=== PATIENT | female | born 1945 | race Caucasian/White ===

== ENCOUNTER 2017-04-28 19:04 | Inpatient (IN) | payer MEDICARE, BC ==
[~2017-04-28] VITALS: Ht 177.8 cm; Wt 59.0 kg
[~2017-04-28 19:04] MED LIST: ASPI81TA31 PO; BLOO-360 IN; CARB200T PO; CLON0.2T PO; DOCU100C36 PO; FURO-152 PO; INSU100V10 SQ; LEVO100T PO; METF500T4 PO
[2017-04-28 20:00] LABS: BASOPHILS % (AUTO) 0.4 % (0.0-2.0); EOSINOPHILS # (AUTO) 0.2 K/uL (0.0-0.7); EOSINOPHILS % (AUTO) 1.7 % (0.0-7.0); HEMATOCRIT 40.8 % (37-47); HEMOGLOBIN 13.6 G/DL (12.0-16.0); LYMPHOCYTES # (AUTO) 0.7 K/UL (0.8-4.8); LYMPHOCYTES % (AUTO) 7.9 % (20.5-51.5); MEAN CORPUSCULAR HEMOGLOBIN 31.9 UUG (27.0-31.0); MEAN CORPUSCULAR HGB CONC 33 g/dL (32.0-37.0); MEAN CORPUSCULAR VOLUME 95.8 FL (81.0-99.0); MONOCYTES # (AUTO) 0.7 K/UL (0.1-1.30); MONOCYTES % (AUTO) 7.1 % (0.0-11.0); NEUTROPHILS # (AUTO) 7.7 K/UL (1.8-8.9); NEUTROPHILS % (AUTO) 82.9 % (38.5-71.5); PLATELET COUNT (AUTO) 234 K/UL (150-450); RED BLOOD CELL COUNT(AUTO) 4.26 MIL/UL (4.2-5.4); WHITE BLOOD COUNT (AUTO) 9.3 K/UL (4.0-11.2)
[2017-04-28 20:01] LABS: CARBON DIOXIDE 33 mmol/L (21-32); CHLORIDE 93 mmol/L (98-107); CREATININE 1.1 mg/dL (0.6-1.3); GLUCOSE 242 mg/dL (74-106); POTASSIUM 4.3 mmol/L (3.5-5.1); UREA NITROGEN, BLOOD 30 mg/dL (7-18)
--- NOTE | 2017-04-28 20:01 | NUR ---
Patient out of unit for ct scan via gurny
[2017-04-28 20:07] LABS: ALANINE AMINOTRANSFERASE 21 U/L (14-59); ALKALINE PHOSPHATASE 110 U/L (50-136); ASPARTATE AMINOTRANSFERASE 11 U/L (15-37); BILIRUBIN,DIRECT 0.1 mg/dL (0.0-0.2); BILIRUBIN,TOTAL 0.4 mg/dL (0.2-1.0); LIPASE 106 U/L (73-393); TOTAL PROTEIN, SERUM 7.3 g/dL (6.4-8.2)
--- NOTE | 2017-04-28 20:30 | NUR ---
Patient back from ct scan with no distress noted
[2017-04-28 22:13] LABS: *BILIRUBIN,URIN NEGATIVE (NEGATIVE); *BLOOD, URINE Trace-intact (NEGATIVE); *CLARITY,URINE SLIGHTLY CLOUDY (CLEAR); *COLOR,URINE LIGHT YELLOW (YELLOW); *KETONES,URINE NEGATIVE (NEGATIVE); *PROTEIN,URINE 1+ (NEGATIVE); *UROBILINOGEN,URINE 0.2 E.U./dl (NORMAL); LEUKOCYTE ESTERASE ,URINE TRACE (NEGATIVE); NITRITE, URINE POSITIVE (NEGATIVE); PH,URINE 6.5 (5.0-8.0); UGLUCOSE TRACE (NEGATIVE)
[2017-04-28 22:16] LABS: BACTERIA,URINE MANY /HPF (NONE SEEN); RBC,URINE 0-3 /HPF (0-3); SQUAMOUS EPITHELIAL CELL,UR FEW /HPF (NONE SEEN); WBC,URINE 20-50 /HPF (0-3)
[2017-04-28 22:19] LABS: *AMPHETAMINE, URINE NEGATIVE (NEGATIVE); *BARBITURATE, URINE NEGATIVE (NEGATIVE); *CANNABINOID, URINE NEGATIVE (NEGATIVE); *COCCAINE, URINE NEGATIVE (NEGATIVE); *OPIATE, URINE NEGATIVE (NEGATIVE); *PHENCYCLIDINE SCREEN,URINE NEGATIVE (NEGATIVE)
--- NOTE | 2017-04-28 23:08 | NUR ---
Called Daughter for medication list on patient but unable to get a hold of any family member for medication list. Patient does not remember what med she take at home
--- NOTE | 2017-04-28 23:20 | NUR ---
transfered to 2nd floor via amber
--- NOTE | 2017-04-28 23:26 | NUR ---
Pt arrived to unit via gurney accompanied by NAILHEAD OPERATOR. Pt is awake, alert and oriented x 2 with forgetfulness. Speech is clear with no SOB and no apparent distress noted. Admitted for dehydration/UTI. IV heplock on left wrist 20g patent and intact. Pt denies pain or discomfort at this time. Dr. Watters aware of pt admission. Safety precautions and fall preventions maintained. Will continue to monitor.
--- NOTE | 2017-04-28 23:45 | NUR ---
IV ROCEPHIN 1 GM NOT GIVEN, TOO CLOSE FROM PREVIOUS ADMINISTRATION. GIVEN AT ER.
[2017-04-28 23:58] VITALS: BP 148/79
[2017-04-29 04:00] VITALS: BP 144/74
[2017-04-29 06:36] LABS: EOSINOPHILS # (AUTO) 0.1 K/uL (0.0-0.7); HEMATOCRIT 38.5 % (37-47); HEMOGLOBIN 12.7 G/DL (12.0-16.0); LYMPHOCYTES # (AUTO) 0.9 K/UL (0.8-4.8); LYMPHOCYTES % (AUTO) 13.2 % (20.5-51.5); MEAN CORPUSCULAR HEMOGLOBIN 31.7 UUG (27.0-31.0); MEAN CORPUSCULAR HGB CONC 33 g/dL (32.0-37.0); MEAN CORPUSCULAR VOLUME 96.3 FL (81.0-99.0); MONOCYTES # (AUTO) 0.5 K/UL (0.1-1.30); NEUTROPHILS # (AUTO) 5.1 K/UL (1.8-8.9); NEUTROPHILS % (AUTO) 76.8 % (38.5-71.5); PLATELET COUNT (AUTO) 211 K/UL (150-450)
[2017-04-29 06:42] LABS: WHITE BLOOD COUNT (AUTO) 6.6 K/UL (4.0-11.2)
[2017-04-29 07:05] LABS: IRON, SERUM 24 ug/dL (50-175)
[2017-04-29 07:25] LABS: ALANINE AMINOTRANSFERASE 20 U/L (14-59); ALKALINE PHOSPHATASE 98 U/L (50-136); ASPARTATE AMINOTRANSFERASE 14 U/L (15-37); BILIRUBIN,TOTAL 0.4 mg/dL (0.2-1.0); CARBON DIOXIDE 33 mmol/L (21-32); CHLORIDE 95 mmol/L (98-107); CHOLESTEROL 169 mg/dL (<200); CREATININE 0.8 mg/dL (0.6-1.3); GLUCOSE 264 mg/dL (74-106); HDL CHOLESTEROL 78 mg/dL (40-60); MAGNESIUM 1.4 mg/dL (1.8-2.4); PHOSPHOROUS 3.5 mg/dL (2.5-4.9); TOTAL PROTEIN, SERUM 6.5 g/dL (6.4-8.2)
[2017-04-29 07:38] LABS: TRIGLYCERIDES 51 MG/DL (30-150); UREA NITROGEN, BLOOD 24 mg/dL (7-18)
--- NOTE | 2017-04-29 08:00 | NUR ---
awake, oriented x 2, states still feels weak, denies of nausea, explained plan of care- verbalized understanding, safety measures provided, call light within reach, bed alarm on
--- NOTE | 2017-04-29 11:05 | NUR ---
BS 409- gave 15 units of regular insulin sq as per sliding scale and informed Dr Watters
[2017-04-29 11:39] VITALS: BP 169/75
[2017-04-29 12:28] LABS: THYROID STIMULATING HORMONE 1.082 mIU/mL (0.358-3.740)
--- NOTE | 2017-04-29 13:40 | NUR ---
c/o low back pain- medicated with Morphine 2 mg iv as prn
[2017-04-29 16:04] VITALS: BP 124/61
--- NOTE | 2017-04-29 17:17 | NUR ---
denies of pain, needs attended, daughter called and spoke to her
--- NOTE | 2017-04-29 18:30 | NUR ---
resting in bed, no distress noted, all needs attended and met, safety and comfort measures provided, call light within reach, bed alarm on
--- NOTE | 2017-04-29 19:30 | NUR ---
RECEIVED PATIENT LAYING COMFORTABLY IN BED. HOB ELEVATED. NO ACUTE DISTRESS NOTED. NO C/O NAUSEA, VOMITING, HEADACHES. DVT PUMPS IN PLACED. PATIENT IS INCONTINENT IN BM AND URINE. A&O X'S 3. NOTED LEFT CHEST WALL PACEMAKER. SKIN INTACT. NOTED BILATERAL LEG SWELLING. SAFETY INITIATED. CALL LIGHT WITHIN REACH. WILL CONTINUE TO MONITOR.
[2017-04-29 20:00] VITALS: BP 159/73
[2017-04-30] VITALS: BP 158/77
[2017-04-30 04:43] VITALS: BP 179/85
[2017-04-30 06:10] VITALS: BP 149/79
--- NOTE | 2017-04-30 06:51 | NUR ---
PATIENT SLEPT INTERMITTENTLY T/O THE NIGHT. NO ACUTE DISTRESS NOTED. ALERT AND ORIENTED X'S 3 BUT FORGETFUL. C/O PAIN, MEDS GIVEN STATED RELIEF. TEMP UNDER CONTROL. ALL MEDS GIVEN ORDERED. DVT PUMPS IN PLACE. IV SL PATENT AND INTACT. VSS. ALL NEEDS MET. WILL CONTINUE TO MONITOR.
--- NOTE | 2017-04-30 08:00 | NUR ---
awake alert and oriented x 4- slightly forgetful, denies of pain, states feels better today, explained plan of care- verbalized understanding, call light within reach.
[2017-04-30 09:18] LABS: ALANINE AMINOTRANSFERASE 18 U/L (14-59); ALKALINE PHOSPHATASE 103 U/L (50-136); ASPARTATE AMINOTRANSFERASE 15 U/L (15-37); BILIRUBIN,TOTAL 0.3 mg/dL (0.2-1.0); CARBON DIOXIDE 29 mmol/L (21-32); CHLORIDE 93 mmol/L (98-107); CREATININE 0.8 mg/dL (0.6-1.3); MAGNESIUM 1.5 mg/dL (1.8-2.4); PHOSPHOROUS 3.1 mg/dL (2.5-4.9); POTASSIUM 4.1 mmol/L (3.5-5.1); TOTAL PROTEIN, SERUM 6.7 g/dL (6.4-8.2); UREA NITROGEN, BLOOD 17 mg/dL (7-18)
[2017-04-30 09:24] LABS: BASOPHILS % (AUTO) 0.4 % (0.0-2.0); EOSINOPHILS # (AUTO) 0.1 K/uL (0.0-0.7); EOSINOPHILS % (AUTO) 2.6 % (0.0-7.0); HEMATOCRIT 38.2 % (37-47); HEMOGLOBIN 12.7 G/DL (12.0-16.0); LYMPHOCYTES # (AUTO) 0.5 K/UL (0.8-4.8); LYMPHOCYTES % (AUTO) 10.7 % (20.5-51.5); MEAN CORPUSCULAR HEMOGLOBIN 31.6 UUG (27.0-31.0); MEAN CORPUSCULAR HGB CONC 33 g/dL (32.0-37.0); MEAN CORPUSCULAR VOLUME 95.1 FL (81.0-99.0); MONOCYTES # (AUTO) 0.4 K/UL (0.1-1.30); MONOCYTES % (AUTO) 8.2 % (0.0-11.0); NEUTROPHILS # (AUTO) 3.7 K/UL (1.8-8.9); NEUTROPHILS % (AUTO) 78.1 % (38.5-71.5); PLATELET COUNT (AUTO) 201 K/UL (150-450); RED BLOOD CELL COUNT(AUTO) 4.02 MIL/UL (4.2-5.4); WHITE BLOOD COUNT (AUTO) 4.7 K/UL (4.0-11.2)
[2017-04-30 09:28] LABS: GLUCOSE 389 mg/dL (74-106)
[2017-04-30 11:23] VITALS: BP 154/83
--- NOTE | 2017-04-30 13:30 | NUR ---
ambulated with PT in the hallway- tolerated well
--- NOTE | 2017-04-30 15:00 | NUR ---
sister here visiting, pt pulled out a tape on her left hand and obtained a skin tear- cleansed with ns and applied hydrogel and covered with dsg
[2017-04-30 15:43] VITALS: BP 116/66
--- NOTE | 2017-04-30 17:53 | NUR ---
resting in bed, denies of pain, no distress noted, all needs attended and met, call light within reach
--- NOTE | 2017-04-30 19:30 | NUR ---
RECEIVED PATIENT LAYING COMFORTABLY IN BED. NO ACUTE DISTRESS NOTED. A&OX4 BUT FORGETFUL. DVT PUMPS IN PLACE. NOTED SKIN SCAB ON THE RIGHT WRIST D/T BAND AID. PHOTO TAKEN. IV ON THE RIGHT FA PATENT AND INTACT. VSS. SAFETY INITIATED. CALL LIGHT WITHIN REACH. WILL CONTINUE TO MONITOR.
[2017-04-30 20:36] VITALS: BP 135/69
[2017-05-01 05:16] VITALS: BP 154/68
[2017-05-01] MEDS ORDERED: ARIP15TA3 PO (05:32)
--- NOTE | 2017-05-01 06:00 | NUR ---
Patient raised concern for symptoms of depression with no suicidal ideation. She reports taking home medication, Abilify qHS unknown dose. Medication added to Med Recon. Will endorse to day shift nurse. Patient states primary pharmacy is [facility] in [place].
--- NOTE | 2017-05-01 06:19 | NUR ---
Patient resting in bed. No distress noted overnight. Complained of migraine pain this AM, PRN medications administered as ordered. Afebrile. Hemodynamically stable Room air with SpO2 and RR WNL. No bowel movement this shift, still pending STOOL OB. Right hand dressing intact. SCD pumps in place. Call light within reach. Needs attended to.
[2017-05-01 06:53] LABS: ALANINE AMINOTRANSFERASE 16 U/L (14-59); ALKALINE PHOSPHATASE 97 U/L (50-136); ASPARTATE AMINOTRANSFERASE 17 U/L (15-37); BILIRUBIN,TOTAL 0.3 mg/dL (0.2-1.0); CARBON DIOXIDE 33 mmol/L (21-32); CHLORIDE 96 mmol/L (98-107); CREATININE 0.8 mg/dL (0.6-1.3); GLUCOSE 264 mg/dL (74-106); MAGNESIUM 1.4 mg/dL (1.8-2.4); PHOSPHOROUS 3.8 mg/dL (2.5-4.9); TOTAL PROTEIN, SERUM 6.5 g/dL (6.4-8.2); UREA NITROGEN, BLOOD 18 mg/dL (7-18)
[2017-05-01 06:58] LABS: BASOPHILS % (AUTO) 0.2 % (0.0-2.0); EOSINOPHILS # (AUTO) 0.2 K/uL (0.0-0.7); EOSINOPHILS % (AUTO) 3.9 % (0.0-7.0); HEMATOCRIT 40.4 % (37-47); HEMOGLOBIN 13.6 G/DL (12.0-16.0); LYMPHOCYTES # (AUTO) 0.7 K/UL (0.8-4.8); LYMPHOCYTES % (AUTO) 13.6 % (20.5-51.5); MEAN CORPUSCULAR HEMOGLOBIN 32.1 UUG (27.0-31.0); MEAN CORPUSCULAR HGB CONC 34 g/dL (32.0-37.0); MEAN CORPUSCULAR VOLUME 95.6 FL (81.0-99.0); MONOCYTES # (AUTO) 0.5 K/UL (0.1-1.30); MONOCYTES % (AUTO) 10.6 % (0.0-11.0); NEUTROPHILS # (AUTO) 3.7 K/UL (1.8-8.9); NEUTROPHILS % (AUTO) 71.7 % (38.5-71.5); PLATELET COUNT (AUTO) 199 K/UL (150-450); RED BLOOD CELL COUNT(AUTO) 4.23 MIL/UL (4.2-5.4); WHITE BLOOD COUNT (AUTO) 5.1 K/UL (4.0-11.2)
--- NOTE | 2017-05-01 10:26 | NUR ---
pt took meds as prescribed. pt given insulin per coverage with blood sugar of 281. pt ate breakfast. no signs of aspiration . pt alert and oriented x4 iv line intact and patent. no new injuries noted compared to previous shift. no signs of acute distress noted. vitas stable. will continue to monitor.
[2017-05-01 11:27] VITALS: BP 153/74
--- NOTE | 2017-05-01 14:09 | NUR ---
pt complained of pain. pt given norco for back pain. will reassess. Physical therapist also stated that pt refused therapy. will continue to monitor.
[2017-05-01 15:08] VITALS: BP 152/70
--- NOTE | 2017-05-01 18:35 | NUR ---
pt been stable throughout the day. pt given meds as prescribed. pt requested for pain med and given norco for complaints of back pain and headache. pt iv site continued to be intact. pt ate meals and given insulin per sliding scale. pt continues to have non productive cough but pt has lasix. occult blood order still in process. pt had no bm. pt states that she had bm yesterday. will endorse to cnc machinist 2nd shift nurse.
--- NOTE | 2017-05-01 19:00 | NUR ---
RECEIVED PATIENT IN ALERT, ORIENTED, NO SOB NO CHEST PAIN NOTED, COMPLAIN OF MILD HEADACHE WILL MEDICATED FOR PAIN, KEPT CLEAN DRY AND COMFORTABLE, CALL LIGHT WITHIN REACH.
[2017-05-01 20:00] VITALS: BP 137/72
[2017-05-02 04:00] VITALS: BP 133/76
[2017-05-02 07:03] LABS: CARBON DIOXIDE 31 mmol/L (21-32); CHLORIDE 94 mmol/L (98-107); CREATININE 0.9 mg/dL (0.6-1.3); GLUCOSE 270 mg/dL (74-106); MAGNESIUM 1.8 mg/dL (1.8-2.4); PHOSPHOROUS 4.4 mg/dL (2.5-4.9); POTASSIUM 4.7 mmol/L (3.5-5.1); UREA NITROGEN, BLOOD 30 mg/dL (7-18)
[2017-05-02 07:08] LABS: BASOPHILS % (AUTO) 0.3 % (0.0-2.0); EOSINOPHILS # (AUTO) 0.2 K/uL (0.0-0.7); EOSINOPHILS % (AUTO) 4.7 % (0.0-7.0); HEMATOCRIT 37.2 % (37-47); HEMOGLOBIN 12.4 G/DL (12.0-16.0); LYMPHOCYTES # (AUTO) 0.8 K/UL (0.8-4.8); LYMPHOCYTES % (AUTO) 14.8 % (20.5-51.5); MEAN CORPUSCULAR HGB CONC 34 g/dL (32.0-37.0); MEAN CORPUSCULAR VOLUME 95.5 FL (81.0-99.0); MONOCYTES # (AUTO) 0.6 K/UL (0.1-1.30); MONOCYTES % (AUTO) 11.3 % (0.0-11.0); NEUTROPHILS # (AUTO) 3.5 K/UL (1.8-8.9); NEUTROPHILS % (AUTO) 68.9 % (38.5-71.5); PLATELET COUNT (AUTO) 200 K/UL (150-450); RED BLOOD CELL COUNT(AUTO) 3.89 MIL/UL (4.2-5.4); WHITE BLOOD COUNT (AUTO) 5.1 K/UL (4.0-11.2)
--- NOTE | 2017-05-02 07:20 | NUR ---
PATIENT RECEIVED IN ROOM ALERT AWAKE IN NO ACUTE DISTRESS. RESPIRATIONS EVEN AND UNLABORED. FALL PRECAUTIONS IN PLACE.
[2017-05-02 11:41] VITALS: BP 110/77
[2017-05-02] MEDS ORDERED: SULF1TAB3 PO (15:31)
[2017-05-02] MEDS ORDERED: INSU100V28 SQ ×2 (15:31)
[2017-05-02] MEDS ORDERED: MULT1TAB73 PO (15:31)
[2017-05-02] MEDS ORDERED: Blood Sugar Diagnostic VI (15:31)
[2017-05-02] MEDS ORDERED: INSU100V10 SQ (15:31)
[2017-05-02] MEDS ORDERED: HYDR-3326 PO (15:31)
[2017-05-02] MEDS ORDERED: DEXT50DI8 IV (15:31)
[2017-05-02] MEDS ORDERED: ZOLP5TAB8 PO (15:31)
[2017-05-02 15:48] VITALS: BP 152/71
--- NOTE | 2017-05-02 17:23 | NUR ---
PATIENT'S BS 63. HAVING DINNER AT THIS TIME. NO S/S OF DISTRESS OBSERVED.
--- NOTE | 2017-05-02 18:21 | NUR ---
DISCHARGING PATIENT TO [facility] IN A STABLE CONDITION. SBAR REPORT GIVEN TO GARDENIA BLACKMON. DISCHARGE INSTRUCTIONS PROVIDED. LIST OF BELONGINGS SINGED AND ALL WAS TAKEN. PATIENT AWAITING ON AMBULANCE FOR UX DESIGN MANAGER. PATIENT STATED HAD BM 04/30/17. ABD SOFT AND NOT DISTENDED. GARDENIA RN NOTIFIED. AWAITING ON AMBULANCE FOR UX DESIGN MANAGER.
--- NOTE | 2017-05-02 18:50 | NUR ---
AMBULANCE HERE TO EDUCATION RESEARCH ANALYST PATIENT.
--- NOTE | 2017-05-02 19:20 | NUR ---
PATIENT LEFT WITH AMBULANCE STAFF.
== END 2017-05-02 19:20 | DRG 871 ==
LOC: ER 19:06 → MED 22:54
PROVIDERS: ADMIT Internal Medicine; ATTEND Internal Medicine
DX: A41.9 Sepsis, unspecified organism (principal); G93.41 Metabolic encephalopathy; D68.59 Other primary thrombophilia; E22.2 Syndrome of inappropriate secretion of antidiuretic hormone; I11.0 Hypertensive heart disease with heart failure; E11.65 Type 2 diabetes mellitus with hyperglycemia; F03.90 Unspecified dementia, unspecified severity, without behavioral disturbance, psychotic disturbance, mood disturbance, and anxiety; I50.32 Chronic diastolic (congestive) heart failure; E83.42 Hypomagnesemia; N39.0 Urinary tract infection, site not specified; F31.30 Bipolar disorder, current episode depressed, mild or moderate severity, unspecified; R65.20 Severe sepsis without septic shock; E86.0 Dehydration; B96.1 Klebsiella pneumoniae [K. pneumoniae] as the cause of diseases classified elsewhere; T42.1X5A Adverse effect of iminostilbenes, initial encounter; Y92.009 Unspecified place in unspecified non-institutional (private) residence as the place of occurrence of the external cause; N32.81 Overactive bladder; R32 Unspecified urinary incontinence; E03.9 Hypothyroidism, unspecified; Z91.81 History of falling; K43.9 Ventral hernia without obstruction or gangrene; I67.2 Cerebral atherosclerosis; Z79.84 Long term (current) use of oral hypoglycemic drugs; Z16.11 Resistance to penicillins; Z79.4 Long term (current) use of insulin; Z95.0 Presence of cardiac pacemaker; Z87.891 Personal history of nicotine dependence; Z98.84 Bariatric surgery status
CPT/HCPCS: 36415; 70030-TC; 70450; 71010; 80307; 82306; 83550; 83690; 83735; 84100; 84443; 85025; 85730; 87077; 87086; 93005; 97116; 97530; A4663; J0696; J1815; J2270; J2405; J2916; J3475; J3490; J7030; J7040; J7050; J7060

== ENCOUNTER 2017-05-11 16:25 | Emergency (ER) | payer MEDICARE, BC ==
[~2017-05-11] VITALS: Ht 167.6 cm; Wt 74.8 kg
[~2017-05-11 16:25] MED LIST changes: +ARIP15TA3 PO; -BLOO-360 IN; +Blood Sugar Diagnostic VI; +DEXT50DI8 IV; +HYDR-3326 PO; +INSU100V28 SQ; +MULT1TAB73 PO; +SULF1TAB3 PO; +ZOLP5TAB8 PO
--- NOTE | 2017-05-11 17:49 | NUR ---
Patient discharged to home in stable conditon. Written and verbal after care instructions given. Patient verbalizes understanding of instructions.PT SAYS FEELS BETTER, PT ACCOMPANIED BY SO. PT CALLING FOR TAXI
[2017-05-11 17:50] VITALS: BP 159/99
== END 2017-05-11 17:51 | disposition home or self-care (01) ==
LOC: ER 16:37
DX: G43.909 Migraine, unspecified, not intractable, without status migrainosus (principal); F17.200 Nicotine dependence, unspecified, uncomplicated; E11.9 Type 2 diabetes mellitus without complications; M19.90 Unspecified osteoarthritis, unspecified site; I10 Essential (primary) hypertension; Z79.4 Long term (current) use of insulin; Z79.82 Long term (current) use of aspirin
CPT/HCPCS: 96374; 99284; A4663; J0780

== ENCOUNTER 2017-07-26 04:07 | Inpatient (IN) | payer MEDICARE, BC ==
[~2017-07-26] VITALS: Ht 167.6 cm; Wt 74.8 kg
[2017-07-26] MEDS ORDERED: IV NORMAL SALINE 500 ML IV ONE (04:17)
--- NOTE | 2017-07-26 04:21 | NUR ---
Patient BIB [facility] for c/o weakness and patient is "shaky." Patient observed in obvious distress, SVT on the monitor, skin pale and cool, A/O x2 c/o "jaw pain." EKG immediately performed and IV line started. To room 4B, ERMD at bedside.
[2017-07-26] MEDS ORDERED: IV NORMAL SALINE 1000 ML BAG IV ONE (04:30)
[2017-07-26] MEDS ORDERED: ONDANSETRON 4 MG/2 ML VIAL IV ONE (04:30)
[2017-07-26] MEDS ORDERED: ASPIRIN 81 MG TAB.CHEW PO ONE (04:30)
[2017-07-26] MEDS ORDERED: ADENOSINE 6 MG/2 ML SYR IV ONE ×2 (04:30→04:47)
--- NOTE | 2017-07-26 04:33 | NUR ---
ERMD at bedside, patient converted with medication but immediately resumed SVT, additional orders received.
--- NOTE | 2017-07-26 04:35 | NUR ---
PT'S DAUGHTER CALLED TO INQUIRE ABOUT HER.EXPLAINED TO DAUGHTER THAT PT JUST GOT HERE AND WE HAVE NO RESULTS YET.DAUGHTER TOLD ME THAT BECAUSE HER BP WAS RUNNING LOW,SHE WITHHELD LOPRESSOR AND CARDIZEM
[2017-07-26 04:37] LABS: BASOPHILS % (AUTO) 0.4 % (0.0-2.0); EOSINOPHILS # (AUTO) 0.2 K/uL (0.0-0.7); HEMOGLOBIN 15.3 g/dL (10.9-14.3); LYMPHOCYTES # (AUTO) 1.5 K/uL (20.0-40.0); MEAN CORPUSCULAR HEMOGLOBIN 32.3 uug (24.7-32.8); MEAN CORPUSCULAR HGB CONC 34 g/dL (32.3-35.6); MEAN CORPUSCULAR VOLUME 95.1 fL (75.5-95.3); MONOCYTES # (AUTO) 0.4 K/uL (2.0-10.0); MONOCYTES % (AUTO) 4.1 % (0.0-11.0); NEUTROPHILS # (AUTO) 7.8 K/uL (1.8-8.9); NEUTROPHILS % (AUTO) 78.5 % (38.5-71.5); PLATELET COUNT (AUTO) 207 K/uL (179-408); RED BLOOD CELL COUNT(AUTO) 4.73 MIL/uL (3.63-4.92); WHITE BLOOD COUNT (AUTO) 9.9 K/uL (3.8-11.8)
[2017-07-26] MEDS ORDERED: VERAPAMIL 5 MG/2 ML VIAL IV ONE ×3 (04:45→04:54)
--- NOTE | 2017-07-26 04:45 | NUR ---
Patient converted with medication to SR. ERMD notified.
[2017-07-26] MEDS ORDERED: ASPIRIN 81 MG TAB.CHEW ONE (04:47)
[2017-07-26] MEDS ORDERED: ONDANSETRON 4 MG/2 ML VIAL ONE (04:47)
[2017-07-26 04:48] LABS: CARBON DIOXIDE 28 mmol/L (21-32); CHLORIDE 97 mmol/L (98-107); POTASSIUM 4.6 mmol/L (3.5-5.1); UREA NITROGEN, BLOOD 24 mg/dL (7-18)
--- NOTE | 2017-07-26 04:53 | NUR ---
Patient's HR converted to a bigeminal rythm, ERMD notified.
[2017-07-26 04:56] LABS: GLUCOSE 424 mg/dL (74-106)
[2017-07-26 05:00] LABS: ALANINE AMINOTRANSFERASE 179 U/L (14-59); ALKALINE PHOSPHATASE 238 U/L (50-136); ASPARTATE AMINOTRANSFERASE 231 U/L (15-37); BILIRUBIN,DIRECT 0.3 mg/dL (0.0-0.2); BILIRUBIN,TOTAL 0.5 mg/dL (0.2-1.0); TOTAL PROTEIN, SERUM 6.9 g/dL (6.4-8.2)
[2017-07-26] MEDS ORDERED: INSULIN REGULAR, HUMAN 1,000 UNITS/10 ML VIAL IV ONE (05:00)
[2017-07-26] MEDS ORDERED: INSULIN REGULAR, HUMAN 300 UNIT/3 ML VIAL ONE (05:18)
[2017-07-26] MEDS ORDERED: INSULIN REGULAR, HUMAN 300 UNITS/3 ML VIAL SQ PRN (05:45)
[2017-07-26] MEDS ORDERED: DEXTROSE 50% 50 ML DISP.SYRIN IV PRN ×2 (05:45→12:45)
[2017-07-26] MEDS ORDERED: ACETAMINOPHEN 325 MG TABLET PO PRN (05:45)
--- NOTE | 2017-07-26 06:15 | NUR ---
Pt. admitted to TELE, under care of Dr. Watters Belongs List completed
[2017-07-26 06:45] VITALS: BP 131/74
[2017-07-26] MEDS ORDERED: METO50TA3 PO (06:56)
[2017-07-26] MEDS ORDERED: TRAZ-147 PO (06:56)
[2017-07-26] MEDS ORDERED: DILT120C2 PO (06:56)
[2017-07-26] MEDS ORDERED: BENZ2TAB7 PO (06:56)
[2017-07-26] MEDS ORDERED: INSU100V10 SQ (06:56)
[2017-07-26] MEDS ORDERED: DONE5TAB7 PO (06:56)
[2017-07-26] MEDS ORDERED: ENAL20TA70 PO (06:56)
[2017-07-26] MEDS ORDERED: CARI350T PO (06:56)
--- NOTE | 2017-07-26 07:00 | NUR ---
PT IS LAYING IN BED COMFORTABLY. NO S/S OF RESPIRATORY DISTRESS NOTED. PT IS ON 2 L NC. REMOVED NC PT IS STILL 100% O2 SAT. PT IS ON RA. NO PAIN NOTED. IV INTACT/PATENT. PT IS PACING ON MONITOR. ALL SAFETY NEEDS ARE MET. PT IS LUPE AND COOPERATIVE/ AXO X 3. PT REFUSES SCD'S AND NICOTINE PATCH OF NOW.
[2017-07-26] MEDS: BLOOD SUGAR DIAGNOSTIC 1 EACH STRIP VI SCH ×4 (07:46→20:24)
[2017-07-26] MEDS: PANTOPRAZOLE SODIUM 40 MG TABLET.DR PO SCH (08:10)
[2017-07-26] MEDS: INSULIN REGULAR, HUMAN 300 UNIT/3 ML VIAL SQ PRN ×4 (08:19→20:32)
[2017-07-26] MEDS ORDERED: ASPIRIN EC 325 MG TABLET.DR PO SCH (09:00)
[2017-07-26] MEDS ORDERED: METOPROLOL TARTRATE 50 MG TABLET PO SCH (09:00)
[2017-07-26] MEDS ORDERED: FUROSEMIDE 20 MG/2 ML VIAL IV SCH (09:00)
[2017-07-26] MEDS ORDERED: METOPROLOL TARTRATE 25 MG TABLET PO SCH (09:00)
[2017-07-26 11:30] VITALS: BP 150/84
--- NOTE | 2017-07-26 11:54 | NUR ---
The patient ate breakfast. US Abdomen will be done on 07/27/2017 program or project administrator. Charged nurse Ailyn noted.
[2017-07-26 13:29] LABS: CARBON DIOXIDE 28 mmol/L (21-32); CHLORIDE 98 mmol/L (98-107); CREATININE 0.8 mg/dL (0.6-1.3); GLUCOSE 276 mg/dL (74-106); POTASSIUM 4.3 mmol/L (3.5-5.1); UREA NITROGEN, BLOOD 22 mg/dL (7-18)
[2017-07-26 13:34] LABS: ALANINE AMINOTRANSFERASE 138 U/L (14-59); ALKALINE PHOSPHATASE 168 U/L (50-136); ASPARTATE AMINOTRANSFERASE 125 U/L (15-37); BILIRUBIN,TOTAL 0.3 mg/dL (0.2-1.0); MAGNESIUM 1.6 mg/dL (1.8-2.4); TOTAL PROTEIN, SERUM 6.1 g/dL (6.4-8.2)
[2017-07-26] MEDS: CLONIDINE HCL 0.2 MG TABLET PO SCH ×2 (13:50→22:00)
[2017-07-26] MEDS: CARISOPRODOL 350 MG TABLET PO SCH ×2 (13:50→16:15)
[2017-07-26 15:45] VITALS: BP 145/70
[2017-07-26] MEDS: DOCUSATE SODIUM 100 MG CAPSULE PO SCH (16:15)
[2017-07-26] MEDS: CARBAMAZEPINE 200 MG TABLET PO SCH (16:15)
[2017-07-26] MEDS ORDERED: IV NS 1000 ML 1,000 ML IV PRN (16:30)
[2017-07-26] MEDS ORDERED: FUROSEMIDE 20 MG/2 ML VIAL IV ONE (17:15)
[2017-07-26 19:00] VITALS: BP 131/83
--- NOTE | 2017-07-26 19:30 | NUR ---
PT IS LAYING IN BED COMFORTABLY. NO S/S OF RESPIRATORY DISTRESS NOTED. PT IS ON RA. PT IS ON RA. NO PAIN NOTED. IV INTACT/PATENT. PT IS PACING ON MONITOR. ALL SAFETY NEEDS ARE MET. PT IS LUPE AND COOPERATIVE/ AXO X 3. PT REFUSES SCD'S AND NICOTINE PATCH OF NOW.
[2017-07-26 20:37] VITALS: BP 131/83
[2017-07-26] MEDS ORDERED: DOCUSATE SODIUM 100 MG CAPSULE PO SCH (21:00)
[2017-07-26] MEDS: TRAZODONE 100 MG TABLET PO SCH (21:08)
[2017-07-26] MEDS: METOPROLOL TARTRATE 50 MG TABLET PO SCH (21:09)
[2017-07-26] MEDS: DONEPEZIL 5 MG TABLET PO SCH (21:09)
[2017-07-26] MEDS: INSULIN DETEMIR 300 UNIT/3 ML CARTRIDGE SQ SCH (21:12)
[2017-07-27] VITALS: BP 116/77
[2017-07-27] MEDS: BLOOD SUGAR DIAGNOSTIC 1 EACH STRIP VI SCH ×7 (00:41→20:34)
[2017-07-27 04:00] VITALS: BP 160/76
[2017-07-27] MEDS: CLONIDINE HCL 0.2 MG TABLET PO SCH ×2 (06:00→09:39)
[2017-07-27] MEDS: PANTOPRAZOLE SODIUM 40 MG TABLET.DR PO SCH ×2 (06:04→11:17)
--- NOTE | 2017-07-27 06:06 | NUR ---
pt npo for CT angio this am, AM meds held for now, will cont to monitor BS AND SBP closely
[2017-07-27] MEDS: LEVOTHYROXINE SODIUM 75 MCG TABLET PO SCH ×2 (06:37→11:17)
[2017-07-27 07:02] LABS: ALANINE AMINOTRANSFERASE 118 U/L (14-59); ALKALINE PHOSPHATASE 172 U/L (50-136); ASPARTATE AMINOTRANSFERASE 78 U/L (15-37); BILIRUBIN,TOTAL 0.3 mg/dL (0.2-1.0); CARBON DIOXIDE 26 mmol/L (21-32); CHLORIDE 100 mmol/L (98-107); CHOLESTEROL 192 mg/dL (<200); CREATININE 0.7 mg/dL (0.6-1.3); GLUCOSE 123 mg/dL (74-106); HDL CHOLESTEROL 96 mg/dL (40-60); MAGNESIUM 1.6 mg/dL (1.8-2.4); PHOSPHOROUS 4.3 mg/dL (2.5-4.9); POTASSIUM 3.7 mmol/L (3.5-5.1); TOTAL PROTEIN, SERUM 6.8 g/dL (6.4-8.2); TRIGLYCERIDES 66 MG/DL (30-150); UREA NITROGEN, BLOOD 20 mg/dL (7-18)
[2017-07-27 07:06] LABS: THYROID STIMULATING HORMONE 2.111 mIU/mL (0.358-3.740)
--- NOTE | 2017-07-27 08:00 | NUR ---
awake alert and oriented, denies of pain, kept NPO for US abdomen and CTA, explained plan of care- verbalized understanding, safety measures maintained, call light within reach, bed alarm on
--- NOTE | 2017-07-27 08:30 | NUR ---
US abdomen done at bedside.
[2017-07-27] MEDS ORDERED: LEVOTHYROXINE SODIUM 100 MCG TABLET PO SCH (09:00)
[2017-07-27 09:31] LABS: BASOPHILS % (AUTO) 0.5 % (0.0-2.0); EOSINOPHILS # (AUTO) 0.2 K/uL (0.0-0.7); EOSINOPHILS % (AUTO) 3.2 % (0.0-7.0); HEMOGLOBIN 13.9 g/dL (10.9-14.3); LYMPHOCYTES # (AUTO) 0.9 K/uL (20.0-40.0); LYMPHOCYTES % (AUTO) 14.2 % (20.5-51.5); MEAN CORPUSCULAR HEMOGLOBIN 32.4 uug (24.7-32.8); MEAN CORPUSCULAR HGB CONC 35 g/dL (32.3-35.6); MEAN CORPUSCULAR VOLUME 93.7 fL (75.5-95.3); MONOCYTES # (AUTO) 0.4 K/uL (2.0-10.0); MONOCYTES % (AUTO) 6.5 % (0.0-11.0); NEUTROPHILS # (AUTO) 4.8 K/uL (1.8-8.9); NEUTROPHILS % (AUTO) 75.6 % (38.5-71.5); PLATELET COUNT (AUTO) 193 K/uL (179-408); WHITE BLOOD COUNT (AUTO) 6.4 K/uL (3.8-11.8)
[2017-07-27 09:33] LABS: HEMATOCRIT 40.3 % (31.2-41.9)
[2017-07-27] MEDS: hydrALAZINE HCL 25 MG TABLET PO PRN (09:39)
--- NOTE | 2017-07-27 09:39 | NUR ---
BP 170/88 Catapres 0.2 mg po which want given at 0600 and Hydralazine 25mg po as prn for BP >160 was given with little sip of H20
[2017-07-27] MEDS ORDERED: IV NORMAL SALINE 250 ML IV ONE (09:47)
[2017-07-27] MEDS ORDERED: IOHEXOL 350 100 ML INFUS..BTL ONE (09:47)
[2017-07-27] MEDS ORDERED: HEPARIN SODIUM,PORCINE/PF 100 UNIT/ML, 5ML SYR ONE (09:47)
--- NOTE | 2017-07-27 10:00 | NUR ---
To xray dept for CTA
--- NOTE | 2017-07-27 11:00 | NUR ---
back in the room, am meds given
[2017-07-27] MEDS: ASPIRIN 81 MG TAB.CHEW PO SCH (11:06)
[2017-07-27] MEDS: FUROSEMIDE 20 MG TABLET PO SCH (11:07)
[2017-07-27] MEDS: DOCUSATE SODIUM 100 MG CAPSULE PO SCH ×2 (11:07→17:03)
[2017-07-27] MEDS: DILTIAZEM HCL CD 120 MG CAP.SR.24H PO SCH (11:07)
[2017-07-27] MEDS: METOPROLOL TARTRATE 50 MG TABLET PO SCH ×2 (11:08→21:00)
[2017-07-27] MEDS: CARISOPRODOL 350 MG TABLET PO SCH ×3 (11:08→17:03)
[2017-07-27] MEDS: CARBAMAZEPINE 200 MG TABLET PO SCH ×2 (11:08→17:03)
[2017-07-27] MEDS: MAGNESIUM SULFATE/D5W 100 ML IV SCH ×2 (11:12→12:20)
[2017-07-27 11:25] VITALS: BP 143/70
[2017-07-27] MEDS ORDERED: DEXTROSE 50% 50 ML DISP.SYRIN IV PRN (11:45)
[2017-07-27] MEDS: INSULIN REGULAR, HUMAN 300 UNIT/3 ML VIAL SQ PRN ×2 (11:50→17:00)
[2017-07-27] MEDS: HYDROCODONE/APAP 5-325MG TABLET PO PRN (12:39)
--- NOTE | 2017-07-27 12:41 | NUR ---
1300 soma not given since it was administered at 1108 after test done
[2017-07-27] MEDS ORDERED: CLONIDINE HCL 0.2 MG TABLET PO SCH (14:00)
[2017-07-27 15:18] VITALS: BP 120/81
[2017-07-27] MEDS: CLONIDINE HCL 0.1 MG TABLET PO SCH ×2 (15:34→22:07)
--- NOTE | 2017-07-27 18:25 | NUR ---
no distress noted, all needs attended and met, kept clean and dry at all times, safety measures maintained, call light within reach, bed alarm on.
[2017-07-27 19:00] VITALS: BP 136/89
--- NOTE | 2017-07-27 20:00 | NUR ---
RECEIVED PATIENT ASLEEP IN BED. EASILY AROUSABLE. A/O X2 BUT FORGETFUL AT TIMES. DENIES ANY PAIN OR DISCOMFORT. VSS. H/L INTACT AND PATENT. BED ALARM ON. CALL LIGHT IN REACH. ALL NEEDS ATTENDED. WILL CONTINUE TO MONITOR.
[2017-07-27] MEDS: INSULIN DETEMIR 300 UNIT/3 ML CARTRIDGE SQ SCH (20:55)
[2017-07-27] MEDS: INSULIN REGULAR, HUMAN 300 UNITS/3 ML VIAL SQ PRN (20:56)
[2017-07-27] MEDS: DONEPEZIL 5 MG TABLET PO SCH (20:59)
[2017-07-27] MEDS: TRAZODONE 100 MG TABLET PO SCH (20:59)
[2017-07-28 04:00] VITALS: BP 125/80
--- NOTE | 2017-07-28 05:01 | NUR ---
PATIENT ASLEEP IN BED. SLEPT WELL THROUGHOUT THE NIGHT. VSS. BED ALARM ON. CALL LIGHT IN REACH. ALL NEEDS ATTENDED. WILL CONTINUE TO MONITOR.
[2017-07-28] MEDS: CLONIDINE HCL 0.1 MG TABLET PO SCH ×3 (05:37→22:33)
[2017-07-28] MEDS: HYDROCODONE/APAP 5-325MG TABLET PO PRN ×2 (05:45→19:56)
--- NOTE | 2017-07-28 05:45 | NUR ---
PATIENT AWAKE IN BED. C/O HEADACHE. OFFERED TYLENOL BUT PATIENT REFUSED STATING THAT DOESN'T WORK FOR HER. PATIENT GIVEN NORCO 1 TAB PO PRN FOR FREITAS. VSS. WILL CONTINUE TO MONITOR AND ASSESS.
[2017-07-28] MEDS: LEVOTHYROXINE SODIUM 75 MCG TABLET PO SCH (06:06)
[2017-07-28] MEDS: PANTOPRAZOLE SODIUM 40 MG TABLET.DR PO SCH (06:06)
[2017-07-28] MEDS: BLOOD SUGAR DIAGNOSTIC 1 EACH STRIP VI SCH ×5 (06:29→20:51)
--- NOTE | 2017-07-28 06:30 | NUR ---
PATIENTS BLOOD SUGAR 67. A/O X4. PATIENT GIVEN ORANGE JUICE, WILL RECHECK IN 15-20 MIN. CALL LIGHT IN REACH. ALL NEEDS ATTENDED.
[2017-07-28 08:33] LABS: CARBON DIOXIDE 30 mmol/L (21-32); CHLORIDE 100 mmol/L (98-107); CREATININE 0.7 mg/dL (0.6-1.3); GLUCOSE 98 mg/dL (74-106); MAGNESIUM 1.8 mg/dL (1.8-2.4); POTASSIUM 4.1 mmol/L (3.5-5.1); UREA NITROGEN, BLOOD 21 mg/dL (7-18)
[2017-07-28] MEDS: DOCUSATE SODIUM 100 MG CAPSULE PO SCH ×2 (08:43→16:37)
[2017-07-28] MEDS: DILTIAZEM HCL CD 120 MG CAP.SR.24H PO SCH (08:46)
[2017-07-28] MEDS: CARBAMAZEPINE 200 MG TABLET PO SCH ×2 (08:46→16:37)
[2017-07-28] MEDS: FUROSEMIDE 20 MG TABLET PO SCH (08:46)
[2017-07-28] MEDS: CARISOPRODOL 350 MG TABLET PO SCH ×3 (08:46→16:37)
[2017-07-28] MEDS: METOPROLOL TARTRATE 50 MG TABLET PO SCH ×2 (08:47→20:47)
[2017-07-28] MEDS: ASPIRIN 81 MG TAB.CHEW PO SCH (08:47)
[2017-07-28 10:02] LABS: BASOPHILS % (AUTO) 0.6 % (0.0-2.0); EOSINOPHILS # (AUTO) 0.2 K/uL (0.0-0.7); EOSINOPHILS % (AUTO) 3.7 % (0.0-7.0); HEMATOCRIT 41.3 % (31.2-41.9); HEMOGLOBIN 14.2 g/dL (10.9-14.3); LYMPHOCYTES # (AUTO) 0.8 K/uL (20.0-40.0); LYMPHOCYTES % (AUTO) 13.7 % (20.5-51.5); MEAN CORPUSCULAR HEMOGLOBIN 32.3 uug (24.7-32.8); MEAN CORPUSCULAR HGB CONC 34 g/dL (32.3-35.6); MEAN CORPUSCULAR VOLUME 94.2 fL (75.5-95.3); MONOCYTES # (AUTO) 0.4 K/uL (2.0-10.0); MONOCYTES % (AUTO) 7.5 % (0.0-11.0); NEUTROPHILS # (AUTO) 4.4 K/uL (1.8-8.9); NEUTROPHILS % (AUTO) 74.5 % (38.5-71.5); PLATELET COUNT (AUTO) 196 K/uL (179-408); RED BLOOD CELL COUNT(AUTO) 4.39 MIL/uL (3.63-4.92)
[2017-07-28 11:40] VITALS: BP 131/86
[2017-07-28] MEDS: INSULIN REGULAR, HUMAN 300 UNIT/3 ML VIAL SQ PRN ×2 (11:51→16:36)
[2017-07-28] MEDS: hydrALAZINE HCL 25 MG TABLET PO PRN (12:59)
--- NOTE | 2017-07-28 14:42 | NUR ---
SEEN BY DR STEEL SEE NOTES
[2017-07-28 15:31] VITALS: BP 149/87
--- NOTE | 2017-07-28 20:00 | NUR ---
RECEIVED PATIENT AWAKE IN BED. A/O X3. FORGETFUL AT TIMES. PATIENT C/O HEADACHE 03/27. ASKING FOR PAIN MEDICATION. PATIENT GIVEN NORCO 1 TAB PO PRN FOR PAIN. VSS. H/L INTACT AND PATENT. CALL LIGHT IN REACH. BED ALARM ON. ALL NEEDS ATTENDED.
[2017-07-28 20:06] VITALS: BP 147/81
[2017-07-28] MEDS: TRAZODONE 100 MG TABLET PO SCH (20:46)
[2017-07-28] MEDS: DONEPEZIL 5 MG TABLET PO SCH (20:46)
[2017-07-28] MEDS: INSULIN DETEMIR 300 UNIT/3 ML CARTRIDGE SQ SCH (20:52)
[2017-07-28] MEDS: INSULIN REGULAR, HUMAN 300 UNITS/3 ML VIAL SQ PRN (20:53)
[2017-07-29] MEDS: HYDROCODONE/APAP 5-325MG TABLET PO PRN (04:20)
--- NOTE | 2017-07-29 04:20 | NUR ---
PATIENT AWAKE AND C/O OF HEADACHE. PATIENT GIVEN NORCO 1 TAB PO PRN FOR HEADACHE. WILL CONTINUE TO MONITOR.
[2017-07-29 04:45] VITALS: BP_SYST 122; BP_SYST 132; BP_DIAS 84
[2017-07-29] MEDS: LEVOTHYROXINE SODIUM 75 MCG TABLET PO SCH (06:05)
[2017-07-29] MEDS: PANTOPRAZOLE SODIUM 40 MG TABLET.DR PO SCH (06:05)
[2017-07-29] MEDS: CLONIDINE HCL 0.1 MG TABLET PO SCH (06:06)
[2017-07-29] MEDS: BLOOD SUGAR DIAGNOSTIC 1 EACH STRIP VI SCH ×2 (06:35→11:46)
--- NOTE | 2017-07-29 08:00 | NUR ---
awake alert and oriented x3, no signs of pain or distress, more awake and cooperative.
[2017-07-29] MEDS: ASPIRIN 81 MG TAB.CHEW PO SCH (08:37)
[2017-07-29] MEDS: CARISOPRODOL 350 MG TABLET PO SCH ×2 (08:39→14:05)
[2017-07-29] MEDS: DILTIAZEM HCL CD 120 MG CAP.SR.24H PO SCH (08:39)
[2017-07-29] MEDS: METOPROLOL TARTRATE 50 MG TABLET PO SCH (08:39)
[2017-07-29] MEDS: DOCUSATE SODIUM 100 MG CAPSULE PO SCH (08:39)
[2017-07-29] MEDS: FUROSEMIDE 20 MG TABLET PO SCH (08:40)
[2017-07-29] MEDS: CARBAMAZEPINE 200 MG TABLET PO SCH (08:44)
[2017-07-29 11:43] VITALS: BP 131/75
[2017-07-29] MEDS: INSULIN REGULAR, HUMAN 300 UNIT/3 ML VIAL SQ PRN (11:49)
--- NOTE | 2017-07-29 12:00 | NUR ---
SEEN MOISES SHAVER WITH DC ORDER, DAUGHTER NOTIFIED
--- NOTE | 2017-07-29 14:45 | NUR ---
discharge home stable via cab per daughters request
== END 2017-07-29 14:55 | disposition home or self-care (01) | DRG 280 ==
LOC: ER 04:10 → TELE 04:45 → MED 07-27 05:20
PROVIDERS: ADMIT Internal Medicine; ATTEND Internal Medicine
DX: I47.1 Supraventricular tachycardia (principal); I21.A1 Myocardial infarction type 2; I50.33 Acute on chronic diastolic (congestive) heart failure; E11.65 Type 2 diabetes mellitus with hyperglycemia; I48.91 Unspecified atrial fibrillation; E44.1 Mild protein-calorie malnutrition; E87.1 Hypo-osmolality and hyponatremia; G25.0 Essential tremor; I11.0 Hypertensive heart disease with heart failure; E03.9 Hypothyroidism, unspecified; E78.5 Hyperlipidemia, unspecified; F03.90 Unspecified dementia, unspecified severity, without behavioral disturbance, psychotic disturbance, mood disturbance, and anxiety; F17.210 Nicotine dependence, cigarettes, uncomplicated; F31.9 Bipolar disorder, unspecified; K21.9 Gastro-esophageal reflux disease without esophagitis; Z98.84 Bariatric surgery status; R74.0 Nonspecific elevation of levels of transaminase and lactic acid dehydrogenase [LDH]; Z95.0 Presence of cardiac pacemaker; Z68.26 Body mass index [BMI] 26.0-26.9, adult; I44.0 Atrioventricular block, first degree; Z79.84 Long term (current) use of oral hypoglycemic drugs
CPT/HCPCS: 36415; 70030-TC; 71010; 71275; 76705; 83735; 84100; 84443; 85025; 85730; 93005; 93307; A4663; J0153; J1642; J1815; J1940; J2405; J3475; J3490; J7030; J7050; Q9967

== ENCOUNTER 2017-08-17 22:54 | Emergency (ER) | payer MEDICARE, BC ==
[~2017-08-17] VITALS: Ht 167.6 cm; Wt 74.8 kg
[~2017-08-17 22:54] MED LIST changes: -ARIP15TA3 PO; -Blood Sugar Diagnostic VI; +CARI350T PO; -DEXT50DI8 IV; +DILT-32 PO; +DONE5TAB7 PO; +ENAL20TA70 PO; -HYDR-3326 PO; +METO50TA16 PO; -SULF1TAB3 PO; +TRAZ-147 PO; -ZOLP5TAB8 PO
[2017-08-18 00:23] LABS: BASOPHILS % (AUTO) 0.3 % (0.0-2.0); CARBON DIOXIDE 27 mmol/L (21-32); CHLORIDE 98 mmol/L (98-107); CREATININE 0.9 mg/dL (0.6-1.3); EOSINOPHILS # (AUTO) 0.2 K/uL (0.0-0.7); EOSINOPHILS % (AUTO) 2.9 % (0.0-7.0); GLUCOSE 287 mg/dL (74-106); HEMATOCRIT 35.3 % (31.2-41.9); HEMOGLOBIN 11.9 g/dL (10.9-14.3); LYMPHOCYTES # (AUTO) 0.7 K/uL (20.0-40.0); MEAN CORPUSCULAR HEMOGLOBIN 32.1 uug (24.7-32.8); MEAN CORPUSCULAR HGB CONC 34 g/dL (32.3-35.6); MEAN CORPUSCULAR VOLUME 94.8 fL (75.5-95.3); MONOCYTES # (AUTO) 0.5 K/uL (2.0-10.0); MONOCYTES % (AUTO) 7.2 % (0.0-11.0); NEUTROPHILS # (AUTO) 5.3 K/uL (1.8-8.9); NEUTROPHILS % (AUTO) 78.6 % (38.5-71.5); PLATELET COUNT (AUTO) 166 K/uL (179-408); POTASSIUM 4.5 mmol/L (3.5-5.1); RED BLOOD CELL COUNT(AUTO) 3.72 MIL/uL (3.63-4.92); UREA NITROGEN, BLOOD 18 mg/dL (7-18); WHITE BLOOD COUNT (AUTO) 6.8 K/uL (3.8-11.8)
--- NOTE | 2017-08-18 00:46 | NUR ---
Patient's daughter, Lauren Gaffney, contacted regarding patient's discharge.
--- NOTE | 2017-08-18 01:30 | NUR ---
PATIENT'S DAUGHTER(KAMLESH HORTON) SET UP UBER TO TAKE PATIENT BACK HOME WHERE SHE WILL BE WAITING FOR PATIENT ARRIVAL
--- NOTE | 2017-08-18 01:43 | NUR ---
PATIENT D/C'ED HOME VIA UBER. PATIENT UNDERSTOOD ACI. DAUGTER AWARE OF ACI AND UNDERSTTOD INSTRUCTION. PATIENT LEFT ER WITH NO DISTRESS NOTED
[2017-08-18 01:45] VITALS: BP 148/90
[2017-08-18] MEDS ORDERED: INSU100V10 SQ (14:26)
== END 2017-08-18 01:46 | disposition home or self-care (01) ==
LOC: ER 22:59
DX: S13.4XXA Sprain of ligaments of cervical spine, initial encounter (principal); I10 Essential (primary) hypertension; E11.9 Type 2 diabetes mellitus without complications; M19.90 Unspecified osteoarthritis, unspecified site; Z79.4 Long term (current) use of insulin; Z79.82 Long term (current) use of aspirin; Z95.0 Presence of cardiac pacemaker; Z98.84 Bariatric surgery status; F17.200 Nicotine dependence, unspecified, uncomplicated; W18.30XA Fall on same level, unspecified, initial encounter; Y93.89 Activity, other specified; Y92.012 Bathroom of single-family (private) house as the place of occurrence of the external cause; Y99.8 Other external cause status
CPT/HCPCS: 36415; 70450; 72125; 85025; 85730; 93005; A4663

== ENCOUNTER 2017-08-18 12:11 | Inpatient (IN) | payer MEDICARE, BC, MEDICAID ==
[~2017-08-18] VITALS: Ht 167.6 cm; Wt 77.1 kg
[2017-08-18] MEDS ORDERED: IV NORMAL SALINE 500 ML BAG IV ONE (13:15)
[2017-08-18 13:29] LABS: BASOPHILS % (AUTO) 0.2 % (0.0-2.0); EOSINOPHILS # (AUTO) 0.1 K/uL (0.0-0.7); EOSINOPHILS % (AUTO) 2.3 % (0.0-7.0); HEMATOCRIT 36.8 % (31.2-41.9); HEMOGLOBIN 12.5 g/dL (10.9-14.3); LYMPHOCYTES # (AUTO) 0.6 K/uL (20.0-40.0); LYMPHOCYTES % (AUTO) 10.7 % (20.5-51.5); MEAN CORPUSCULAR HEMOGLOBIN 32.1 uug (24.7-32.8); MEAN CORPUSCULAR HGB CONC 34 g/dL (32.3-35.6); MEAN CORPUSCULAR VOLUME 94.9 fL (75.5-95.3); MONOCYTES # (AUTO) 0.5 K/uL (2.0-10.0); MONOCYTES % (AUTO) 8.4 % (0.0-11.0); NEUTROPHILS # (AUTO) 4.7 K/uL (1.8-8.9); NEUTROPHILS % (AUTO) 78.4 % (38.5-71.5); PLATELET COUNT (AUTO) 172 K/uL (179-408); RED BLOOD CELL COUNT(AUTO) 3.88 MIL/uL (3.63-4.92); WHITE BLOOD COUNT (AUTO) 6.1 K/uL (3.8-11.8)
[2017-08-18 13:43] LABS: CARBON DIOXIDE 29 mmol/L (21-32); CHLORIDE 95 mmol/L (98-107); CREATININE 0.7 mg/dL (0.6-1.3); GLUCOSE 221 mg/dL (74-106); POTASSIUM 4.2 mmol/L (3.5-5.1); UREA NITROGEN, BLOOD 15 mg/dL (7-18)
[2017-08-18 13:56] LABS: THYROID STIMULATING HORMONE 1.351 mIU/mL (0.358-3.740)
[2017-08-18 13:57] LABS: ALANINE AMINOTRANSFERASE 46 U/L (14-59); ALKALINE PHOSPHATASE 118 U/L (50-136); ASPARTATE AMINOTRANSFERASE 28 U/L (15-37); BILIRUBIN,DIRECT 0.1 mg/dL (0.0-0.2); BILIRUBIN,TOTAL 0.4 mg/dL (0.2-1.0); TOTAL PROTEIN, SERUM 6.3 g/dL (6.4-8.2)
[2017-08-18 14:18] LABS: ETHANOL < 3 MG/DL (0-0)
[2017-08-18] MEDS ORDERED: INSU100V10 SQ (14:26)
[2017-08-18 15:59] LABS: *BILIRUBIN,URIN NEGATIVE (NEGATIVE); *BLOOD, URINE Trace-intact (NEGATIVE); *CLARITY,URINE CLOUDY (CLEAR); *COLOR,URINE YELLOW (YELLOW); *KETONES,URINE NEGATIVE (NEGATIVE); *PROTEIN,URINE NEGATIVE (NEGATIVE); *UROBILINOGEN,URINE 0.2 E.U./dl (NORMAL); LEUKOCYTE ESTERASE ,URINE TRACE (NEGATIVE); NITRITE, URINE NEGATIVE (NEGATIVE)
[2017-08-18 16:06] LABS: UGLUCOSE 2+ (NEGATIVE)
[2017-08-18 16:11] LABS: BACTERIA,URINE MANY /HPF (NONE SEEN); RBC,URINE 0-3 /HPF (0-3); SQUAMOUS EPITHELIAL CELL,UR FEW /HPF (NONE SEEN)
[2017-08-18 16:48] LABS: *AMPHETAMINE, URINE NEGATIVE (NEGATIVE); *BARBITURATE, URINE NEGATIVE (NEGATIVE); *CANNABINOID, URINE NEGATIVE (NEGATIVE); *COCCAINE, URINE NEGATIVE (NEGATIVE); *OPIATE, URINE NEGATIVE (NEGATIVE); *PHENCYCLIDINE SCREEN,URINE NEGATIVE (NEGATIVE)
--- NOTE | 2017-08-18 17:30 | NUR ---
PT GETTING RESTLESS. COMFORT MEASURE PROVIDED. WILL WATCH THE PT.
--- NOTE | 2017-08-18 17:34 | NUR ---
PT ADMITTED TO TELE. TRANSFER TO FLOOR PENDING ON BED AVAILABILITY. NSG MILLER HEAD WET PROCESS AWARE.
--- NOTE | 2017-08-18 17:48 | NUR ---
HOSPITAL DINNER TRAY PROVIDED.
[2017-08-18] MEDS ORDERED: LORAZEPAM 2 MG/1 ML VIAL IV ONE (18:15)
[2017-08-18] MEDS ORDERED: LORAZEPAM 2 MG/1 ML VIAL ONE (18:24)
--- NOTE | 2017-08-18 18:36 | NUR ---
PT RESTING, NO SIGN OF DISTRESS.
--- NOTE | 2017-08-18 19:45 | NUR ---
PATIENT IN ROOM LAYING DOWN IN A/OX2. NO DISTRESS NOTED.
[2017-08-18] MEDS ORDERED: METOPROLOL TARTRATE 50 MG TABLET PO SCH (22:15)
[2017-08-18] MEDS ORDERED: INSULIN REGULAR, HUMAN 300 UNIT/3 ML VIAL SQ PRN (22:15)
[2017-08-18] MEDS ORDERED: ONDANSETRON 4 MG/2 ML VIAL IV PRN (22:30)
[2017-08-18] MEDS ORDERED: ACETAMINOPHEN 325 MG TABLET PO PRN (22:30)
[2017-08-18] MEDS ORDERED: LORAZEPAM 2 MG/1 ML VIAL IV PRN (22:30)
[2017-08-18] MEDS: CLONIDINE HCL 0.2 MG TABLET PO SCH (23:24)
[2017-08-19] MEDS: MORPHINE SULFATE 2 MG/1 ML DISP.SYRIN IV PRN (01:38)
--- NOTE | 2017-08-19 01:40 | NUR ---
PATIENT C/O FREITAS 01/25 REQUESTING TO HAVE IV PAIN MEDS. CALLED ILANA GARCIA NP MIXING PAN TENDER FOR EPPIC PANEL. RECIEVED ORDERS FOR PAIN AND CARRRIED OUT
[2017-08-19] MEDS ORDERED: MORPHINE SULFATE 4 MG/1 ML DISP.SYRIN ONE (01:53)
[2017-08-19] MEDS ORDERED: ONDANSETRON 4 MG/2 ML VIAL ONE (01:56)
[2017-08-19] MEDS: CLONIDINE HCL 0.2 MG TABLET PO SCH ×3 (02:07→23:22)
[2017-08-19] MEDS ORDERED: CLONIDINE HCL 0.2 MG TABLET ONE (02:22)
--- NOTE | 2017-08-19 02:30 | NUR ---
PATIENT SLEEPING WITH NO DISTRESS NOTED
[2017-08-19] MEDS: PANTOPRAZOLE SODIUM 40 MG TABLET.DR PO SCH (06:07)
[2017-08-19 06:17] LABS: BASOPHILS % (AUTO) 0.4 % (0.0-2.0); EOSINOPHILS # (AUTO) 0.1 K/uL (0.0-0.7); EOSINOPHILS % (AUTO) 1.6 % (0.0-7.0); HEMATOCRIT 39.6 % (31.2-41.9); HEMOGLOBIN 13.6 g/dL (10.9-14.3); LYMPHOCYTES # (AUTO) 0.8 K/uL (20.0-40.0); LYMPHOCYTES % (AUTO) 11.8 % (20.5-51.5); MEAN CORPUSCULAR HEMOGLOBIN 32.6 uug (24.7-32.8); MEAN CORPUSCULAR HGB CONC 34 g/dL (32.3-35.6); MEAN CORPUSCULAR VOLUME 94.9 fL (75.5-95.3); MONOCYTES # (AUTO) 0.6 K/uL (2.0-10.0); MONOCYTES % (AUTO) 9.3 % (0.0-11.0); NEUTROPHILS # (AUTO) 5.4 K/uL (1.8-8.9); NEUTROPHILS % (AUTO) 76.9 % (38.5-71.5); PLATELET COUNT (AUTO) 185 K/uL (179-408); RED BLOOD CELL COUNT(AUTO) 4.18 MIL/uL (3.63-4.92)
[2017-08-19] MEDS ORDERED: PANTOPRAZOLE SODIUM 40 MG TABLET.DR PO ONE (06:23)
[2017-08-19 06:36] LABS: ALANINE AMINOTRANSFERASE 53 U/L (14-59); ALKALINE PHOSPHATASE 129 U/L (50-136); ASPARTATE AMINOTRANSFERASE 30 U/L (15-37); BILIRUBIN,TOTAL 0.7 mg/dL (0.2-1.0); CARBON DIOXIDE 28 mmol/L (21-32); CHLORIDE 100 mmol/L (98-107); CREATININE 0.6 mg/dL (0.6-1.3); GLUCOSE 154 mg/dL (74-106); MAGNESIUM 1.5 mg/dL (1.8-2.4); PHOSPHOROUS 3.8 mg/dL (2.5-4.9); POTASSIUM 3.8 mmol/L (3.5-5.1); TOTAL PROTEIN, SERUM 6.8 g/dL (6.4-8.2); UREA NITROGEN, BLOOD 9 mg/dL (7-18)
[2017-08-19] MEDS ORDERED: LEVOTHYROXINE SODIUM 75 MCG TABLET ONE (06:37)
[2017-08-19] MEDS: CEFTRIAXONE 1 G in IV DEXTROSE 5% 50 ML IV SCH (08:23)
[2017-08-19] MEDS ORDERED: CEFTRIAXONE 1 G VIAL ONE (08:27)
[2017-08-19] MEDS: FUROSEMIDE 20 MG TABLET PO SCH (08:53)
[2017-08-19] MEDS: CARISOPRODOL 350 MG TABLET PO SCH ×3 (08:54→17:06)
[2017-08-19] MEDS: ASPIRIN 81 MG TAB.CHEW PO SCH (08:55)
[2017-08-19] MEDS: CARBAMAZEPINE 200 MG TABLET PO SCH ×2 (08:56→17:06)
[2017-08-19] MEDS ORDERED: ASPIRIN 81 MG TAB.CHEW ONE (08:58)
[2017-08-19] MEDS ORDERED: CARBAMAZEPINE 200 MG TABLET ONE (08:59)
[2017-08-19] MEDS ORDERED: CARISOPRODOL 350 MG TABLET ONE (09:00)
[2017-08-19] MEDS ORDERED: LEVOTHYROXINE SODIUM 100 MCG TABLET PO SCH (09:00)
[2017-08-19] MEDS: DILTIAZEM HCL CD 120 MG CAP.SR.24H PO SCH (09:01)
[2017-08-19] MEDS ORDERED: DILTIAZEM HCL CD 120 MG CAP.SR.24H PO ONE (09:02)
[2017-08-19] MEDS ORDERED: FUROSEMIDE 20 MG TABLET ONE (09:02)
[2017-08-19] MEDS ORDERED: ENALAPRIL 10 MG TABLET ONE (09:03)
[2017-08-19] MEDS: ENALAPRIL 10 MG TABLET PO SCH ×2 (09:03→21:46)
[2017-08-19] MEDS ORDERED: METOPROLOL TARTRATE 50 MG TABLET ONE (09:04)
[2017-08-19] MEDS: METOPROLOL TARTRATE 50 MG TABLET PO SCH ×2 (09:09→21:45)
[2017-08-19] MEDS ORDERED: MAGNESIUM SULFATE/D5W 200 ML ONE (09:10)
[2017-08-19] MEDS: MAGNESIUM SULFATE/D5W 100 ML IV SCH ×2 (09:15→09:22)
[2017-08-19] MEDS: DOCUSATE SODIUM 100 MG CAPSULE PO SCH (09:20)
--- NOTE | 2017-08-19 09:26 | NUR ---
pt tolerated breakfast. medicated as per md lebron. repositioned for confort.
[2017-08-19] MEDS ORDERED: DOCUSATE SODIUM 100 MG CAPSULE PO ONE (09:36)
--- NOTE | 2017-08-19 11:08 | NUR ---
PT HERE, BUT PT STILL DEELING WEAK ANF IN ST AT 110/M
[2017-08-19] MEDS: MULTIVITAMINS,THERAPEUTIC TABLET PO SCH (11:10)
[2017-08-19] MEDS: INSULIN DETEMIR 300 UNIT/3 ML CARTRIDGE SQ SCH (11:28)
[2017-08-19] MEDS ORDERED: DEXTROSE 50% 50 ML DISP.SYRIN IV PRN (13:00)
[2017-08-19] MEDS ORDERED: INSULIN REGULAR, HUMAN 300 UNITS/3 ML VIAL SQ PRN (13:00)
--- NOTE | 2017-08-19 13:54 | NUR ---
REPORT GIVEN TO NEYMAR KELLY. PT RESTING COMFORTABLY - DIAPER CHANGE DONE. TRANSFERRED TO TELEMETRY IN STABLE CONDITION.
[2017-08-19 14:00] VITALS: BP 154/102
--- NOTE | 2017-08-19 14:00 | NUR ---
Received from ER per brianne, this 72 yo female with the diagnosis of Altered Mental Status. Transferred to bed comfortably. Routine admission care rendered. Placed on tele, SR ST. Awake, alert, oriented x 2, forgetful, able to verbalized needs appropriately, calm and cooperative with care. Saline lock LFA. Prasanth Goss RELAY ADJUSTER with admission orders
[2017-08-19 15:29] VITALS: BP 158/104
[2017-08-19] MEDS: BLOOD SUGAR DIAGNOSTIC 1 EACH STRIP VI SCH ×2 (17:57→21:58)
[2017-08-19] MEDS: INSULIN REGULAR, HUMAN 300 UNIT/3 ML VIAL SQ PRN (17:59)
--- NOTE | 2017-08-19 18:00 | NUR ---
With fair appetite. Incontinence care done repositioned comfortably.
[2017-08-19 19:30] VITALS: BP 141/95
--- NOTE | 2017-08-19 19:30 | NUR ---
PT ASLEEP IN BED. PT IV INTACT.BLOOD PRESSURE 141/95. NO SIGNS/SYMPTOMS OF PAIN. CALL LIGHT WITHIN REACH. BED ALARM ON. SAFETY AND COMFORT PROVIDED.
[2017-08-19] MEDS ORDERED: DONEPEZIL 5 MG TABLET PO SCH (21:00)
[2017-08-19] MEDS ORDERED: TRAZODONE 100 MG TABLET PO SCH (21:00)
[2017-08-20] VITALS: BP 121/86
[2017-08-20 04:00] VITALS: BP 145/96
[2017-08-20] MEDS ORDERED: MORPHINE SULFATE 4 MG/1 ML DISP.SYRIN ONE (05:40)
--- NOTE | 2017-08-20 05:45 | NUR ---
PT AWAKE AND ASK FOR PAIN MEDICATION BECAUSE OF BACK PAIN. MEDICATION GIVEN TO EASE THE PAIN. BP IS 141/95. CALL LIGHT WITHIN REACH. SAFETY PROVIDED.
[2017-08-20] MEDS: MORPHINE SULFATE 2 MG/1 ML DISP.SYRIN IV PRN (05:48)
[2017-08-20] MEDS: CLONIDINE HCL 0.2 MG TABLET PO SCH ×2 (05:49→13:00)
[2017-08-20] MEDS: PANTOPRAZOLE SODIUM 40 MG TABLET.DR PO SCH (06:00)
[2017-08-20] MEDS: BLOOD SUGAR DIAGNOSTIC 1 EACH STRIP VI SCH ×3 (06:32→16:42)
[2017-08-20] MEDS ORDERED: LEVOTHYROXINE SODIUM 75 MCG TABLET PO SCH (07:00)
--- NOTE | 2017-08-20 07:30 | NUR ---
RECEIVED ASLEEP WITH EYES CLOSED OPENS EYES WHEN NAME IS CALLED SEEMS COMFORTABLE AT THIS TIMEREMAIN ON IV ANTIBIOTICS ORDERED WITH NO ADVERSE OR ALLERGIC REACTIONS AT THIS TIME WILL CONTINUE TO OBSERVE
[2017-08-20] MEDS: INSULIN REGULAR, HUMAN 300 UNIT/3 ML VIAL SQ PRN ×2 (07:49→11:32)
[2017-08-20] MEDS: FUROSEMIDE 20 MG TABLET PO SCH (08:41)
[2017-08-20] MEDS: DOCUSATE SODIUM 100 MG CAPSULE PO SCH (08:41)
[2017-08-20] MEDS: MULTIVITAMINS,THERAPEUTIC TABLET PO SCH (08:41)
[2017-08-20] MEDS: CEFTRIAXONE 1 G in IV DEXTROSE 5% 50 ML IV SCH (08:41)
[2017-08-20] MEDS: CARISOPRODOL 350 MG TABLET PO SCH ×3 (08:41→16:47)
[2017-08-20] MEDS: ASPIRIN 81 MG TAB.CHEW PO SCH (08:41)
[2017-08-20] MEDS: CARBAMAZEPINE 200 MG TABLET PO SCH ×2 (08:42→16:47)
[2017-08-20] MEDS: METOPROLOL TARTRATE 50 MG TABLET PO SCH (08:49)
[2017-08-20] MEDS: ENALAPRIL 10 MG TABLET PO SCH (08:49)
[2017-08-20] MEDS: DILTIAZEM HCL CD 120 MG CAP.SR.24H PO SCH (09:28)
[2017-08-20] MEDS: INSULIN DETEMIR 300 UNIT/3 ML CARTRIDGE SQ SCH (10:01)
[2017-08-20 11:19] VITALS: BP 141/99
[2017-08-20] MEDS ORDERED: MORPHINE SULFATE 4 MG/1 ML DISP.SYRIN IV PRN (12:45)
--- NOTE | 2017-08-20 13:15 | NUR ---
PATIENT SEEN AND EXAMINED BY DR MENENDEZ WITH ORDER TO DISCONTINUE TELEMETRY AND NOTED.
--- NOTE | 2017-08-20 15:00 | NUR ---
NOTED ORDER TO DISCHARGE PATIENT HOME TODAY AND COLOR ARTIST SPOKE WITH PATIENT AND THE DAUGHTER AND THEY ARE MAKING ARRANGEMENTS FOR HER RIDE.
[2017-08-20 15:23] VITALS: BP 108/68
--- NOTE | 2017-08-20 16:47 | NUR ---
BLOOD SUGAR IS 63 PATIENT IS ALERT AND ORIENTED STATED THAT SHE IS OKAY DRANK 120 ML OF ORANGE JUICE DISCHARGE PLANNING STATED WANTS SOME PAIN MEDICATIONS BEFORE DISCHARGE DR FRED GRANT NOTIFIED STATED WILL ARRANGE FOR DISCHARGE PAIN MEDICATIONS.
--- NOTE | 2017-08-20 17:30 | NUR ---
PATIENT ATE 100 % OF HER DINNER IN [facility] [employer] WITH NO S/S OF HYPO/HYPERGLYCEMIC REACTIONS AT THIS TIME.DISCHARGE INSTRUCTIONS AND PRESCRIPTIONS GIVEN TO PATIENT AND SHE SIGNED AND EXPRESSED UNDERSTANDING.
--- NOTE | 2017-08-20 18:00 | NUR ---
PATIENT ESCORTED BY W/CHAIR TO THE LOBBY PER THE PATIENTS DAUGHTER SHE ARRANGED FOR THE TAXI TO PICK HER UP.
--- NOTE | 2017-08-20 18:25 | NUR ---
PATIENT PICKED UP BY [facility]ORDAN WITH ALL HER PERSONAL BELONGINGS AND IN SATISFACTORY CONDITION AT THIS TIME.
== END 2017-08-20 18:20 | disposition home or self-care (01) | DRG 689 ==
LOC: ER 12:11 → OBSER 22:15 → TELE 08-19 14:15 → MED 08-20 14:11
PROVIDERS: ADMIT Internal Medicine; ATTEND Internal Medicine
DX: N39.0 Urinary tract infection, site not specified (principal); G93.40 Encephalopathy, unspecified; E44.0 Moderate protein-calorie malnutrition; D68.59 Other primary thrombophilia; E22.2 Syndrome of inappropriate secretion of antidiuretic hormone; D69.6 Thrombocytopenia, unspecified; E11.65 Type 2 diabetes mellitus with hyperglycemia; I50.32 Chronic diastolic (congestive) heart failure; Z98.84 Bariatric surgery status; E83.42 Hypomagnesemia; I49.5 Sick sinus syndrome; Z95.0 Presence of cardiac pacemaker; Z79.4 Long term (current) use of insulin; Z87.891 Personal history of nicotine dependence; Z91.81 History of falling; K43.9 Ventral hernia without obstruction or gangrene; E78.5 Hyperlipidemia, unspecified; I25.2 Old myocardial infarction; G25.0 Essential tremor; B96.89 Other specified bacterial agents as the cause of diseases classified elsewhere; Z68.27 Body mass index [BMI] 27.0-27.9, adult; E03.9 Hypothyroidism, unspecified; F03.90 Unspecified dementia, unspecified severity, without behavioral disturbance, psychotic disturbance, mood disturbance, and anxiety; M48.061 Spinal stenosis, lumbar region without neurogenic claudication; M85.80 Other specified disorders of bone density and structure, unspecified site; R32 Unspecified urinary incontinence; M25.78 Osteophyte, vertebrae; Z79.899 Other long term (current) drug therapy; Z79.82 Long term (current) use of aspirin; Z90.49 Acquired absence of other specified parts of digestive tract; F31.9 Bipolar disorder, unspecified; I11.0 Hypertensive heart disease with heart failure; I25.10 Atherosclerotic heart disease of native coronary artery without angina pectoris; F09 Unspecified mental disorder due to known physiological condition
CPT/HCPCS: 36415; 70030-TC; 70450; 71045; 72131; 80307; 83605; 83735; 84100; 84443; 85018; 85025; 85730; 87040; 87077; 87086; 93005; A4663; C1758; G0378; G0480; J0696; J1815; J2060; J2270; J2405; J3475; J3490; J7030; J7050; J7060

== ENCOUNTER 2017-09-08 19:09 | Inpatient (IN) | payer MEDICARE, BC, MEDICAID ==
[~2017-09-08] VITALS: Ht 167.6 cm; Wt 71.2 kg
[~2017-09-08 19:09] MED LIST changes: -CARI350T PO
[2017-09-08 20:44] LABS: BASOPHILS % (AUTO) 0.7 % (0.0-2.0); EOSINOPHILS # (AUTO) 0.2 K/uL (0.0-0.7); EOSINOPHILS % (AUTO) 4.2 % (0.0-7.0); HEMATOCRIT 42.1 % (31.2-41.9); HEMOGLOBIN 14.3 g/dL (10.9-14.3); LYMPHOCYTES # (AUTO) 0.7 K/uL (20.0-40.0); LYMPHOCYTES % (AUTO) 13.8 % (20.5-51.5); MEAN CORPUSCULAR HEMOGLOBIN 32.4 uug (24.7-32.8); MEAN CORPUSCULAR HGB CONC 34 g/dL (32.3-35.6); MEAN CORPUSCULAR VOLUME 95.6 fL (75.5-95.3); MONOCYTES # (AUTO) 0.4 K/uL (2.0-10.0); MONOCYTES % (AUTO) 6.9 % (0.0-11.0); NEUTROPHILS # (AUTO) 3.9 K/uL (1.8-8.9); NEUTROPHILS % (AUTO) 74.4 % (38.5-71.5); PLATELET COUNT (AUTO) 222 K/uL (179-408); WHITE BLOOD COUNT (AUTO) 5.2 K/uL (3.8-11.8)
[2017-09-08 20:50] LABS: CARBON DIOXIDE 29 mmol/L (21-32); CHLORIDE 94 mmol/L (98-107); CREATININE 0.9 mg/dL (0.6-1.3); POTASSIUM 4.9 mmol/L (3.5-5.1); UREA NITROGEN, BLOOD 20 mg/dL (7-18)
[2017-09-08 20:58] LABS: GLUCOSE 613 mg/dL (74-106)
[2017-09-08 21:00] LABS: ALANINE AMINOTRANSFERASE 52 U/L (14-59); ALKALINE PHOSPHATASE 166 U/L (50-136); ASPARTATE AMINOTRANSFERASE 24 U/L (15-37); BILIRUBIN,DIRECT 0.2 mg/dL (0.0-0.2); BILIRUBIN,TOTAL 0.5 mg/dL (0.2-1.0); TOTAL PROTEIN, SERUM 7.5 g/dL (6.4-8.2)
[2017-09-08] MEDS ORDERED: INSULIN REGULAR, HUMAN 1,000 UNITS/10 ML VIAL IV ONE (21:00)
[2017-09-08] MEDS ORDERED: ENALAPRILAT DIHYDRATE 1.25 MG/1 ML VIAL IV ONE ×2 (21:30→21:46)
[2017-09-08] MEDS ORDERED: CLONIDINE HCL 0.1 MG TABLET PO ONE (21:30)
[2017-09-08] MEDS ORDERED: INSULIN REGULAR, HUMAN 300 UNIT/3 ML VIAL ONE (21:33)
[2017-09-08] MEDS ORDERED: CLONIDINE HCL 0.1 MG TABLET ONE (21:45)
--- NOTE | 2017-09-08 22:30 | NUR ---
Pt. admitted to TELE, under care of Dr. Watters Belongs List completed
--- NOTE | 2017-09-08 23:00 | NUR ---
Received from ER via [place]. A&O x 3. Able to make needs known. TELE sinus tach. No acute distress noted. Ushered patient to room. Placed safely in bed. Bed is in low and locked position. Side rails up x 2. Skin assessment done, intact but bilateral lower extremities swelling. IV on the left AC patent and intact. BP running high. MD made aware, will put in orders shortly. Belongings list done. Safety initiated. Call light within reach. Will continue to monitor.
[2017-09-09] VITALS: BP 148/103
[2017-09-09] MEDS ORDERED: MORPHINE SULFATE 2 MG/1 ML DISP.SYRIN IV PRN (00:30)
[2017-09-09] MEDS ORDERED: ONDANSETRON 4 MG/2 ML VIAL IV PRN (00:30)
[2017-09-09] MEDS ORDERED: DEXTROSE 50% 50 ML DISP.SYRIN IV PRN (00:30)
[2017-09-09] MEDS ORDERED: ENOXAPARIN SODIUM 40 MG/0.4 ML DISP.SYRIN SQ SCH (00:30)
[2017-09-09] MEDS ORDERED: ENALAPRILAT DIHYDRATE INJ 2.5 MG in IV NORMAL SALINE 50 ML IV PRN (00:30)
[2017-09-09] MEDS: TRAZODONE 100 MG TABLET PO SCH ×2 (00:40→20:39)
[2017-09-09] MEDS: METOPROLOL TARTRATE 50 MG TABLET PO SCH ×3 (00:40→20:50)
[2017-09-09] MEDS: CLONIDINE HCL 0.2 MG TABLET PO SCH ×4 (00:40→22:11)
[2017-09-09] MEDS: IV 1/2NS 1000 ML 1,000 ML IV PRN ×2 (00:51→20:41)
[2017-09-09] MEDS ORDERED: CLONIDINE HCL 0.2 MG TABLET ONE ×2 (00:52→05:03)
[2017-09-09] MEDS ORDERED: METOPROLOL TARTRATE 50 MG TABLET ONE (00:53)
[2017-09-09] MEDS ORDERED: TRAZODONE 100 MG TABLET ONE (00:54)
[2017-09-09] MEDS ORDERED: INSULIN DETEMIR 300 UNIT/3 ML CARTRIDGE SQ ONE (01:42)
--- NOTE | 2017-09-09 01:54 | NUR ---
RE-CHECKED BP AND BLOOD SUGAR 119/87 hr 99 AFTER MEDS BS 321 WILL CONTINUE TO MONITOR.
[2017-09-09] MEDS: BLOOD SUGAR DIAGNOSTIC 1 EACH STRIP VI SCH ×6 (01:57→21:07)
[2017-09-09] MEDS: INSULIN REGULAR, HUMAN 300 UNIT/3 ML VIAL SQ PRN ×4 (02:01→20:43)
[2017-09-09] MEDS: INSULIN DETEMIR 300 UNIT/3 ML CARTRIDGE SQ SCH ×3 (02:01→20:42)
--- NOTE | 2017-09-09 05:25 | NUR ---
No changes t/o shift. BP under control. Blood sugar still elevated, gave him insulin as ordered. TELE sinus tach / A flutter. Patient remains A&O x 2. Urinating well. Able to turn and reposition herself. Patient is ambulatory but has a weak gait. Safety and comfort measures maintain t/o shift. Vital signs stable. All meds given as ordered. All needs met.
[2017-09-09 06:12] VITALS: BP 118/83
[2017-09-09 07:05] LABS: BASOPHILS % (AUTO) 0.7 % (0.0-2.0); EOSINOPHILS # (AUTO) 0.3 K/uL (0.0-0.7); EOSINOPHILS % (AUTO) 5.7 % (0.0-7.0); HEMATOCRIT 39.2 % (31.2-41.9); HEMOGLOBIN 13.3 g/dL (10.9-14.3); LYMPHOCYTES % (AUTO) 20.9 % (20.5-51.5); MEAN CORPUSCULAR HEMOGLOBIN 32.3 uug (24.7-32.8); MEAN CORPUSCULAR HGB CONC 34 g/dL (32.3-35.6); MEAN CORPUSCULAR VOLUME 94.7 fL (75.5-95.3); MONOCYTES # (AUTO) 0.3 K/uL (2.0-10.0); MONOCYTES % (AUTO) 7.1 % (0.0-11.0); NEUTROPHILS # (AUTO) 3.2 K/uL (1.8-8.9); NEUTROPHILS % (AUTO) 65.6 % (38.5-71.5); PLATELET COUNT (AUTO) 231 K/uL (179-408); RED BLOOD CELL COUNT(AUTO) 4.13 MIL/uL (3.63-4.92); WHITE BLOOD COUNT (AUTO) 4.9 K/uL (3.8-11.8)
--- NOTE | 2017-09-09 07:30 | NUR ---
Awake, alert, oriented x 2, pleasant, on moderate high back rest. IVF infusing
[2017-09-09] MEDS ORDERED: MORPHINE SULFATE 4 MG/1 ML DISP.SYRIN IV PRN (07:45)
[2017-09-09 08:02] LABS: THYROID STIMULATING HORMONE 2.425 mIU/mL (0.358-3.740)
[2017-09-09 08:14] LABS: ALANINE AMINOTRANSFERASE 39 U/L (14-59); ALKALINE PHOSPHATASE 124 U/L (50-136); ASPARTATE AMINOTRANSFERASE 19 U/L (15-37); BILIRUBIN,TOTAL 0.3 mg/dL (0.2-1.0); CARBON DIOXIDE 28 mmol/L (21-32); CHLORIDE 104 mmol/L (98-107); CHOLESTEROL 179 mg/dL (<200); CREATININE 0.6 mg/dL (0.6-1.3); GLUCOSE 113 mg/dL (74-106); HDL CHOLESTEROL 74 mg/dL (40-60); MAGNESIUM 1.7 mg/dL (1.8-2.4); PHOSPHOROUS 3.5 mg/dL (2.5-4.9); POTASSIUM 3.7 mmol/L (3.5-5.1); TOTAL PROTEIN, SERUM 6.1 g/dL (6.4-8.2); TRIGLYCERIDES 27 MG/DL (30-150); UREA NITROGEN, BLOOD 21 mg/dL (7-18)
[2017-09-09] MEDS ORDERED: Medication Not On Formulary EA (Multivitamins (Multivitamin) 1 TAB) PO SCH (09:00)
[2017-09-09] MEDS ORDERED: LEVOTHYROXINE SODIUM 100 MCG TABLET PO SCH (09:00)
[2017-09-09] MEDS: DILTIAZEM HCL CD 120 MG CAP.SR.24H PO SCH (09:00)
[2017-09-09] MEDS ORDERED: Medication Not On Formulary EA (Enalapril Maleate (Vasotec) 20 MG) PO SCH (09:00)
[2017-09-09] MEDS: FUROSEMIDE 20 MG TABLET PO SCH (09:04)
[2017-09-09] MEDS: ASPIRIN 81 MG TAB.CHEW PO SCH (09:04)
[2017-09-09] MEDS: DOCUSATE SODIUM 100 MG CAPSULE PO SCH ×2 (09:04→20:39)
[2017-09-09] MEDS: MULTIVITAMINS,THERAPEUTIC TABLET PO SCH (09:05)
[2017-09-09] MEDS: CARBAMAZEPINE 200 MG TABLET PO SCH ×2 (09:05→20:40)
--- NOTE | 2017-09-09 09:06 | NUR ---
HR 134; BP 96/62 Due Lopressor given, will monitor HR & BP
[2017-09-09] MEDS: PANTOPRAZOLE SODIUM 40 MG TABLET.DR PO SCH (09:09)
[2017-09-09] MEDS: LEVOTHYROXINE SODIUM 75 MCG TABLET PO SCH (09:09)
[2017-09-09 11:23] VITALS: BP 100/57
--- NOTE | 2017-09-09 11:30 | NUR ---
paged Dr. Melvin for Psych consult
[2017-09-09] MEDS ORDERED: MAGNESIUM OXIDE 400 MG TABLET PO ONE (11:45)
[2017-09-09] MEDS: ENALAPRIL 10 MG TABLET PO SCH ×2 (13:10→20:40)
--- NOTE | 2017-09-09 13:26 | NUR ---
Vomited previously ingested food, Zofran IV given, with relief
[2017-09-09 15:52] VITALS: BP 107/72
--- NOTE | 2017-09-09 18:00 | NUR ---
BG 54, juice and dinner served. Repeat BG 220
--- NOTE | 2017-09-09 19:00 | NUR ---
Complained of headache, Tylenol po given. Endorsed for further care and eval
[2017-09-09] MEDS: ACETAMINOPHEN 325 MG TABLET PO PRN (19:05)
--- NOTE | 2017-09-09 19:40 | NUR ---
RECEIVED PATIENT DURING START OF SHIFT. ALERT AND ORIENTED X4. CONTINUES ON TELEMETRY MONITORING. IV SITE PATENT AND INTACT. ASSISTED PATIENT TO BATHROOM. NOTED THAT DIAPER AND UNDERPAD WAS WET WITH URINE. REMINDED PATIENT TO USE CALL LIGHT WHEN SHE NEEDS ASSISTANCE TO GO TO BATHROOM. PATIENT VERBALIZED UNDERSTANDING AND WAS ABLE TO RETURN DEMONSTRATE USE OF CALL LIGHT. BED LOCKED AND IN LOW POSITION WITH BED ALARM ON. WILL CONTINUE TO MONITOR.
[2017-09-09 19:56] VITALS: BP 120/83
[2017-09-09] MEDS: DONEPEZIL 5 MG TABLET PO SCH (20:40)
[2017-09-09] MEDS: ENOXAPARIN SODIUM 40 MG/0.4 ML DISP.SYRIN SQ SCH (20:44)
[2017-09-09] MEDS: HYDROMORPHONE 1 MG/1 ML DISP.SYRIN IV PRN (20:55)
[2017-09-09] MEDS ORDERED: DOCUSATE SODIUM 250 MG CAPSULE PO SCH (21:00)
[2017-09-09 22:20] VITALS: BP 122/60
[2017-09-10] MEDS: BLOOD SUGAR DIAGNOSTIC 1 EACH STRIP VI SCH ×6 (00:01→20:39)
[2017-09-10] MEDS: INSULIN REGULAR, HUMAN 300 UNIT/3 ML VIAL SQ PRN ×5 (00:03→20:43)
[2017-09-10 00:07] VITALS: BP 114/55
[2017-09-10 04:30] VITALS: BP 93/49
[2017-09-10] MEDS: CLONIDINE HCL 0.2 MG TABLET PO SCH ×3 (05:40→22:00)
[2017-09-10] MEDS: PANTOPRAZOLE SODIUM 40 MG TABLET.DR PO SCH (06:08)
[2017-09-10] MEDS: LEVOTHYROXINE SODIUM 75 MCG TABLET PO SCH (06:08)
[2017-09-10 06:39] LABS: BASOPHILS % (AUTO) 0.7 % (0.0-2.0); EOSINOPHILS # (AUTO) 0.3 K/uL (0.0-0.7); EOSINOPHILS % (AUTO) 5.6 % (0.0-7.0); HEMATOCRIT 37.9 % (31.2-41.9); LYMPHOCYTES # (AUTO) 1.4 K/uL (20.0-40.0); LYMPHOCYTES % (AUTO) 27.8 % (20.5-51.5); MEAN CORPUSCULAR HEMOGLOBIN 32.4 uug (24.7-32.8); MEAN CORPUSCULAR HGB CONC 34 g/dL (32.3-35.6); MEAN CORPUSCULAR VOLUME 94.4 fL (75.5-95.3); MONOCYTES # (AUTO) 0.4 K/uL (2.0-10.0); MONOCYTES % (AUTO) 8.1 % (0.0-11.0); NEUTROPHILS # (AUTO) 2.9 K/uL (1.8-8.9); NEUTROPHILS % (AUTO) 57.8 % (38.5-71.5); PLATELET COUNT (AUTO) 203 K/uL (179-408); RED BLOOD CELL COUNT(AUTO) 4.01 MIL/uL (3.63-4.92)
[2017-09-10 07:12] LABS: ALANINE AMINOTRANSFERASE 34 U/L (14-59); ALKALINE PHOSPHATASE 108 U/L (50-136); ASPARTATE AMINOTRANSFERASE 23 U/L (15-37); BILIRUBIN,TOTAL 0.3 mg/dL (0.2-1.0); CARBON DIOXIDE 29 mmol/L (21-32); CHLORIDE 98 mmol/L (98-107); CREATININE 0.6 mg/dL (0.6-1.3); GLUCOSE 71 mg/dL (74-106); MAGNESIUM 1.9 mg/dL (1.8-2.4); PHOSPHOROUS 4.9 mg/dL (2.5-4.9); TOTAL PROTEIN, SERUM 5.7 g/dL (6.4-8.2); UREA NITROGEN, BLOOD 23 mg/dL (7-18)
--- NOTE | 2017-09-10 08:00 | NUR ---
PATIENT IN BED AND AAO x 3. PATIENT HAS NO S/S ACUTE DISTRESS, NO COMPLAINTS OF PAIN. CLOSELY MONITORING FOR BLOOD GLUCOSE.
[2017-09-10] MEDS: CARBAMAZEPINE 200 MG TABLET PO SCH ×2 (08:25→20:36)
[2017-09-10] MEDS: FUROSEMIDE 20 MG TABLET PO SCH (08:25)
[2017-09-10] MEDS: MULTIVITAMINS,THERAPEUTIC TABLET PO SCH (08:25)
[2017-09-10] MEDS: ASPIRIN 81 MG TAB.CHEW PO SCH (08:25)
[2017-09-10] MEDS: ENALAPRIL 10 MG TABLET PO SCH ×2 (08:26→20:36)
[2017-09-10] MEDS: DILTIAZEM HCL CD 120 MG CAP.SR.24H PO SCH (08:26)
[2017-09-10] MEDS: METOPROLOL TARTRATE 50 MG TABLET PO SCH ×2 (08:27→20:35)
[2017-09-10] MEDS: DOCUSATE SODIUM 100 MG CAPSULE PO SCH ×2 (08:27→20:34)
[2017-09-10] MEDS: INSULIN DETEMIR 300 UNIT/3 ML CARTRIDGE SQ SCH ×2 (08:33→20:43)
[2017-09-10] MEDS: ACETAMINOPHEN 325 MG TABLET PO PRN (10:50)
[2017-09-10 11:24] VITALS: BP 144/87
--- NOTE | 2017-09-10 12:00 | NUR ---
PATIENT WAS SEEN BY PT FOR STRENGTHENING EXERCISES PLS SEE PT NOTES
[2017-09-10] MEDS: IV 1/2NS 1000 ML 1,000 ML IV PRN (15:20)
[2017-09-10] MEDS: HYDROMORPHONE 1 MG/1 ML DISP.SYRIN IV PRN (15:24)
[2017-09-10 15:29] VITALS: BP 126/82
[2017-09-10] MEDS: ARIPIPRAZOLE 5 MG TABLET PO SCH (16:07)
[2017-09-10] MEDS ORDERED: MORPHINE SULFATE 4 MG/1 ML DISP.SYRIN IV PRN (17:00)
--- NOTE | 2017-09-10 17:34 | NUR ---
CONT WITH MONITORING BLOOD SUGAR Q4H WITH AGGRESSIVE SLIDING SCALE. NO S/S OF HYPO OR HYPERGLYCEMIA.
[2017-09-10 20:00] VITALS: BP 130/74
[2017-09-10] MEDS: ENOXAPARIN SODIUM 40 MG/0.4 ML DISP.SYRIN SQ SCH (20:31)
[2017-09-10] MEDS: TRAZODONE 100 MG TABLET PO SCH (20:35)
[2017-09-10] MEDS: DONEPEZIL 5 MG TABLET PO SCH (20:35)
[2017-09-11] MEDS: BLOOD SUGAR DIAGNOSTIC 1 EACH STRIP VI SCH ×7 (00:38→23:06)
[2017-09-11] MEDS: INSULIN REGULAR, HUMAN 300 UNIT/3 ML VIAL SQ PRN ×6 (00:39→23:01)
[2017-09-11] MEDS: CLONIDINE HCL 0.2 MG TABLET PO SCH ×3 (05:25→21:41)
[2017-09-11 06:35] VITALS: BP 157/86
[2017-09-11] MEDS: PANTOPRAZOLE SODIUM 40 MG TABLET.DR PO SCH (07:03)
[2017-09-11] MEDS: LEVOTHYROXINE SODIUM 75 MCG TABLET PO SCH (07:03)
[2017-09-11] MEDS: IV 1/2NS 1000 ML 1,000 ML IV PRN ×2 (07:48→23:04)
--- NOTE | 2017-09-11 07:58 | NUR ---
RECEIVED SHIFT REPORT FROM BULLET SWAGING MACHINE OPERATOR NURSE. PATIENT A/OX3, STABLE CONDITION, NO S/S OF DISTRESS. IVF CHANGED. 0800 ACCUCHECK 220. COVERAGE WILL BE ADMINISTERED. BED IN LOCKED/LOW POSITION, SIDE RAILS UP X2, BED ALARM ON, CALL LIGHT WITHIN REACH. PT UNDERSTANDS IMPORTANCE OF USING CALL LIGHT WHEN ASSISTANCE IS NEEDED.
[2017-09-11] MEDS: MULTIVITAMINS,THERAPEUTIC TABLET PO SCH (08:48)
[2017-09-11] MEDS: ASPIRIN 81 MG TAB.CHEW PO SCH (08:48)
[2017-09-11] MEDS: ARIPIPRAZOLE 5 MG TABLET PO SCH ×2 (08:48→17:37)
[2017-09-11] MEDS: CARBAMAZEPINE 200 MG TABLET PO SCH ×2 (08:49→20:36)
[2017-09-11] MEDS: ENALAPRIL 10 MG TABLET PO SCH ×2 (08:49→21:00)
[2017-09-11] MEDS: METOPROLOL TARTRATE 50 MG TABLET PO SCH ×2 (08:50→21:00)
[2017-09-11] MEDS: DILTIAZEM HCL CD 120 MG CAP.SR.24H PO SCH (08:50)
[2017-09-11] MEDS: DOCUSATE SODIUM 100 MG CAPSULE PO SCH ×2 (08:51→20:36)
[2017-09-11] MEDS: FUROSEMIDE 20 MG TABLET PO SCH (08:51)
[2017-09-11] MEDS: INSULIN DETEMIR 300 UNIT/3 ML CARTRIDGE SQ SCH ×2 (08:54→20:48)
[2017-09-11 11:10] VITALS: BP 146/89
[2017-09-11] MEDS ORDERED: ZOLPIDEM 5 MG TABLET PO PRN (12:30)
[2017-09-11 15:18] VITALS: BP 135/90
--- NOTE | 2017-09-11 17:53 | NUR ---
PATIENT RESTING COMFORTABLY IN BED, HAVING DINNER AND TOLERATING IT WELL. BLOOD SUGAR AND BLOOD PRESSURE HAS BEEN MANAGED THROUGHOUT SHIFT. PAIN MANAGEMENT PROVIDED. PATIENT CHANGED, CLEANED. IVF RUNNING AT THIS TIME. PATIENT IN STABLE CONDITION, NO S/S OF DISTRESS. BED IN LOCKED/LOW POSITION, SIDE RAILS UP X2, BED ALARM ON.
--- NOTE | 2017-09-11 19:32 | NUR ---
PT IN ROOM ALERT AWAKE IN NO ACUTE DISTRESS. NO ACTIVE S/S OF HYPER/HYPOGLYCEMIA AT THIS TIME. DENIES ANY HEADACHES, PAIN, OR DISCOMFORT. STATES SHE IS WAITING HER PSYCH MEDICATION FROM THE MD CONSULT EARLIER. ABLE TO FOLLOW SIMPLE COMMANDS. CONTINUE TO MONITOR. CALL LIGHT PLACED WITHIN REACH.
[2017-09-11 20:15] VITALS: BP 96/54
[2017-09-11] MEDS: TRAZODONE 100 MG TABLET PO SCH (20:36)
[2017-09-11] MEDS: DONEPEZIL 5 MG TABLET PO SCH (20:36)
[2017-09-11] MEDS: ENOXAPARIN SODIUM 40 MG/0.4 ML DISP.SYRIN SQ SCH (20:49)
--- NOTE | 2017-09-12 01:00 | NUR ---
PT IN ROOM ASLEEP IN NO ACUTE DISTRESS. PT REPOSITIONED WITH HOB MAINTAINED NO S/S OF HYPER/HYPOGLYCEMIA NOTED AT THIS TIME. CONTINUE TO MONITOR. CALL LIGHT PLACED WITHIN REACH.
[2017-09-12 04:00] VITALS: BP 123/63
[2017-09-12] MEDS: BLOOD SUGAR DIAGNOSTIC 1 EACH STRIP VI SCH ×3 (04:20→11:04)
[2017-09-12] MEDS: CLONIDINE HCL 0.2 MG TABLET PO SCH ×2 (05:00→14:30)
--- NOTE | 2017-09-12 06:00 | NUR ---
PT IN ROOM ALERT AWAKE IN NO ACUTE DISTRESS. NO INCREASED EPISODES OF HYPERGLYCEMIA OR HYPERTENSION. ABLE TO FOLLOW SIMPLE COMMANDS WITHOUT DIFFICULTY. PT NEEDS PERIODS OF REMINDERS AND REDIRECTION. PT WAS REPOSITIONED AND MAINTAINING IV FLUIDS 1/2 NS @70ML/HR. CONTINUE TO MONITOR.
[2017-09-12] MEDS: PANTOPRAZOLE SODIUM 40 MG TABLET.DR PO SCH (06:03)
[2017-09-12] MEDS: LEVOTHYROXINE SODIUM 75 MCG TABLET PO SCH (06:03)
[2017-09-12 06:08] LABS: BASOPHILS % (AUTO) 0.5 % (0.0-2.0); EOSINOPHILS # (AUTO) 0.2 K/uL (0.0-0.7); HEMATOCRIT 37.4 % (31.2-41.9); HEMOGLOBIN 12.8 g/dL (10.9-14.3); LYMPHOCYTES # (AUTO) 0.8 K/uL (20.0-40.0); LYMPHOCYTES % (AUTO) 24.6 % (20.5-51.5); MEAN CORPUSCULAR HEMOGLOBIN 32.2 uug (24.7-32.8); MEAN CORPUSCULAR HGB CONC 34 g/dL (32.3-35.6); MEAN CORPUSCULAR VOLUME 94.2 fL (75.5-95.3); MONOCYTES # (AUTO) 0.3 K/uL (2.0-10.0); MONOCYTES % (AUTO) 8.3 % (0.0-11.0); NEUTROPHILS # (AUTO) 1.9 K/uL (1.8-8.9); NEUTROPHILS % (AUTO) 59.6 % (38.5-71.5); PLATELET COUNT (AUTO) 182 K/uL (179-408); RED BLOOD CELL COUNT(AUTO) 3.97 MIL/uL (3.63-4.92); WHITE BLOOD COUNT (AUTO) 3.2 K/uL (3.8-11.8)
[2017-09-12 06:19] LABS: CARBON DIOXIDE 29 mmol/L (21-32); CHLORIDE 102 mmol/L (98-107); CREATININE 0.6 mg/dL (0.6-1.3); GLUCOSE 92 mg/dL (74-106); MAGNESIUM 1.6 mg/dL (1.8-2.4); PHOSPHOROUS 4.2 mg/dL (2.5-4.9); UREA NITROGEN, BLOOD 16 mg/dL (7-18)
--- NOTE | 2017-09-12 07:13 | NUR ---
RECEIVED SHIFT REPORT FROM MACHINE HELPER NURSE. PATIENT RESTING COMFORTABLY IN BED AT THIS TIME. NO S/S OF DISTRESS. STABLE CONDITION. BED IN LOCKED/LOW POSITION, SIDE RAILS UP X2, BED ALARM ON, CALL LIGHT WITHIN REACH. SAFETY/COMFORT WILL BE PROVIDED.
[2017-09-12] MEDS: CARBAMAZEPINE 200 MG TABLET PO SCH (08:31)
[2017-09-12] MEDS: DOCUSATE SODIUM 100 MG CAPSULE PO SCH (08:31)
[2017-09-12] MEDS: ASPIRIN 81 MG TAB.CHEW PO SCH (08:31)
[2017-09-12] MEDS: ENALAPRIL 10 MG TABLET PO SCH (08:32)
[2017-09-12] MEDS: METOPROLOL TARTRATE 50 MG TABLET PO SCH (08:32)
[2017-09-12] MEDS: FUROSEMIDE 20 MG TABLET PO SCH (08:32)
[2017-09-12] MEDS: MULTIVITAMINS,THERAPEUTIC TABLET PO SCH (08:32)
[2017-09-12] MEDS: DILTIAZEM HCL CD 120 MG CAP.SR.24H PO SCH (08:33)
[2017-09-12] MEDS: INSULIN DETEMIR 300 UNIT/3 ML CARTRIDGE SQ SCH (08:40)
[2017-09-12] MEDS: INSULIN REGULAR, HUMAN 300 UNIT/3 ML VIAL SQ PRN (11:08)
[2017-09-12 11:27] VITALS: BP 124/74
[2017-09-12] MEDS: ARIPIPRAZOLE 5 MG TABLET PO SCH ×2 (12:10→17:24)
[2017-09-12] MEDS ORDERED: MAGNESIUM OXIDE 400 MG TABLET PO ONE ×2 (12:45→16:15)
[2017-09-12 15:14] VITALS: BP 140/86
[2017-09-12] MEDS ORDERED: OMEP20CA10 PO (15:15)
[2017-09-12] MEDS ORDERED: HYDR-548 PO (15:16)
--- NOTE | 2017-09-12 18:06 | NUR ---
PATIENT DISCHARGED AT THIS TIME IN STABLE CONDITION, NO S/S OF DISTRESS, VITAL SIGNS STABLE. PT. BEING DISCHARGED HOME, BEING TRANSPORTED BY TAXI (VOUCHER). IV DCed, ID BAND TAKEN OFF, BELONGINGS CHECKLIST COMPLETED AND SIGNED BY PATIENT. NO FALLS NOTED. PATIENT IS IN SAFE CONDITION, TRANSPORTED TO HOSPITAL ENTRANCE BY SUPERVISOR DAIRY SANITATION USING WHEELCHAIR.
== END 2017-09-12 18:00 | disposition home health service (06) | DRG 637 ==
LOC: ER 19:10 → TELE 22:28 → MED 09-10 22:27
PROVIDERS: ADMIT Internal Medicine; ATTEND Internal Medicine
DX: E11.65 Type 2 diabetes mellitus with hyperglycemia (principal); E11.00 Type 2 diabetes mellitus with hyperosmolarity without nonketotic hyperglycemic-hyperosmolar coma (NKHHC); G93.41 Metabolic encephalopathy; E22.2 Syndrome of inappropriate secretion of antidiuretic hormone; D68.59 Other primary thrombophilia; I49.5 Sick sinus syndrome; F31.64 Bipolar disorder, current episode mixed, severe, with psychotic features; I50.32 Chronic diastolic (congestive) heart failure; G90.8 Other disorders of autonomic nervous system; I11.0 Hypertensive heart disease with heart failure; Z79.4 Long term (current) use of insulin; I44.0 Atrioventricular block, first degree; Z95.0 Presence of cardiac pacemaker; Z91.19 Patient's noncompliance with other medical treatment and regimen; Z98.84 Bariatric surgery status; Z91.81 History of falling; K43.9 Ventral hernia without obstruction or gangrene; E03.9 Hypothyroidism, unspecified; R32 Unspecified urinary incontinence; Z79.899 Other long term (current) drug therapy; Z79.82 Long term (current) use of aspirin; N32.81 Overactive bladder; Z74.09 Other reduced mobility
CPT/HCPCS: 36415; 70030-TC; 71045; 83735; 84100; 84443; 85025; 93005; A4663; J1170; J1650; J1815; J2270; J2405; J3490; J7030

== ENCOUNTER 2017-09-25 16:33 | Inpatient (IN) | payer MEDICARE, BC ==
[~2017-09-25] VITALS: Ht 167.6 cm; Wt 77.1 kg
[~2017-09-25 16:33] MED LIST changes: +HYDR-548 PO; -METF500T4 PO; +OMEP20CA10 PO
--- NOTE | 2017-09-25 16:40 | NUR ---
Unable to reconcile home medications. Unable to obtain information from pt, none provided by EMS.
[2017-09-25 17:06] LABS: BASOPHILS % (AUTO) 0.9 % (0.0-2.0); EOSINOPHILS # (AUTO) 0.3 K/uL (0.0-0.7); EOSINOPHILS % (AUTO) 4.5 % (0.0-7.0); HEMATOCRIT 37.6 % (31.2-41.9); HEMOGLOBIN 12.7 g/dL (10.9-14.3); LYMPHOCYTES # (AUTO) 0.9 K/uL (20.0-40.0); LYMPHOCYTES % (AUTO) 15.3 % (20.5-51.5); MEAN CORPUSCULAR HEMOGLOBIN 32.3 uug (24.7-32.8); MEAN CORPUSCULAR HGB CONC 34 g/dL (32.3-35.6); MEAN CORPUSCULAR VOLUME 95.5 fL (75.5-95.3); MONOCYTES # (AUTO) 0.3 K/uL (2.0-10.0); MONOCYTES % (AUTO) 6.1 % (0.0-11.0); NEUTROPHILS # (AUTO) 4.1 K/uL (1.8-8.9); NEUTROPHILS % (AUTO) 73.2 % (38.5-71.5); PLATELET COUNT (AUTO) 175 K/uL (179-408); RED BLOOD CELL COUNT(AUTO) 3.93 MIL/uL (3.63-4.92); WHITE BLOOD COUNT (AUTO) 5.6 K/uL (3.8-11.8)
[2017-09-25 17:15] LABS: CARBON DIOXIDE 29 mmol/L (21-32); CHLORIDE 96 mmol/L (98-107); CREATININE 0.9 mg/dL (0.6-1.3); POTASSIUM 4.5 mmol/L (3.5-5.1); UREA NITROGEN, BLOOD 17 mg/dL (7-18)
[2017-09-25 17:16] LABS: GLUCOSE 313 mg/dL (74-106)
[2017-09-25 17:19] LABS: ETHANOL < 3 MG/DL (0-0)
[2017-09-25 17:20] LABS: ALANINE AMINOTRANSFERASE 41 U/L (14-59); ALKALINE PHOSPHATASE 105 U/L (50-136); ASPARTATE AMINOTRANSFERASE 20 U/L (15-37); BILIRUBIN,DIRECT 0.1 mg/dL (0.0-0.2); BILIRUBIN,TOTAL 0.2 mg/dL (0.2-1.0); TOTAL PROTEIN, SERUM 6.6 g/dL (6.4-8.2)
[2017-09-25 17:22] LABS: ACETAMINOPHEN < 2.0 ug/mL (10-30)
--- NOTE | 2017-09-25 17:27 | NUR ---
[facility] PROVIDED FOR PT PER REQUEST
[2017-09-25] MEDS ORDERED: ONDANSETRON 4 MG/2 ML VIAL IV PRN (19:00)
[2017-09-25] MEDS ORDERED: HYDROCODONE/APAP 10-325 MG TABLET PO PRN (19:00)
[2017-09-25] MEDS ORDERED: INSULIN REGULAR, HUMAN 300 UNIT/3 ML VIAL SQ PRN ×4 (19:00→20:15)
[2017-09-25] MEDS ORDERED: HYDROCODONE/APAP 5-325MG TABLET PO PRN (19:00)
[2017-09-25] MEDS ORDERED: IV NS 1000 ML 1,000 ML IV PRN (19:00)
[2017-09-25] MEDS ORDERED: MAGNESIUM HYDROXIDE 30 ML LIQUID UDC PO PRN (19:00)
--- NOTE | 2017-09-25 19:15 | NUR ---
ASSUMED CARE OF PATIENT. NO ACUTE DISTRESS AT THIS TIME. PATIENT IS AWAITING INPATIENT ADMISSION AT THIS TIME.
--- NOTE | 2017-09-25 19:40 | NUR ---
Report given to Theron BLACKMON
[2017-09-25 20:00] VITALS: BP 152/75
--- NOTE | 2017-09-25 20:01 | NUR ---
Patient POCT BS @ 204mg/dl
--- NOTE | 2017-09-25 20:01 | NUR ---
Pt. admitted to Telemetry , under care of Dr. Bebeto Andrew. Dx:Hyperglycemia/AMS Belongs List completed
--- NOTE | 2017-09-25 20:05 | NUR ---
PT ARRIVED IN ROOM ALERT AWAKE WITH ALTERED MENTAL STATUS. PT IN NO ACUTE DISTRESS. FILM TOUCH UP INSPECTOR STATES SINUS RYTHM. ABLE TO FOLLOW SIMPLE COMMANDS. AWAITING ADMITTING ORDERS AT THIS TIME. CONTINUE TO MONITOR FOR ANY S/S OF HYPER/HYPOGLYCEMIA. CALL LIGHT PLACED WITHIN REACH. REMINDED PT TO ASK FOR ASSISTANCE IF NEEDED.
[2017-09-25] MEDS ORDERED: DEXTROSE 50% 50 ML DISP.SYRIN IV PRN (20:30)
[2017-09-25] MEDS ORDERED: TRAZODONE 100 MG TABLET PO SCH (21:00)
[2017-09-25] MEDS ORDERED: INSULIN GLARGINE,HUM 300 UNITS/3 ML CARTRIDGE SQ SCH (21:00)
[2017-09-25] MEDS ORDERED: METOPROLOL TARTRATE 50 MG TABLET PO SCH (21:00)
[2017-09-25] MEDS ORDERED: DONEPEZIL 5 MG TABLET PO SCH (21:00)
[2017-09-25] MEDS: BLOOD SUGAR DIAGNOSTIC 1 EACH STRIP VI SCH (21:21)
[2017-09-25] MEDS: INSULIN REGULAR, HUMAN 300 UNIT/3 ML VIAL SQ PRN (21:39)
[2017-09-25] MEDS ORDERED: TRAZODONE 100 MG TABLET ONE (21:56)
[2017-09-25] MEDS ORDERED: METOPROLOL TARTRATE 50 MG TABLET ONE (21:56)
[2017-09-25] MEDS ORDERED: DONEPEZIL 5 MG TABLET ONE (21:57)
[2017-09-25] MEDS: CLONIDINE HCL 0.2 MG TABLET PO SCH (22:59)
[2017-09-25 23:00] VITALS: BP 130/62
[2017-09-25] MEDS ORDERED: CLONIDINE HCL 0.2 MG TABLET ONE (23:20)
[2017-09-26 04:00] VITALS: BP 131/75
--- NOTE | 2017-09-26 05:00 | NUR ---
PT IN ROOM ASLEEP IN NO ACUTE DISTRESS. DENIES ANY PAIN OR DISCOMFORT. MUSIC DIRECTOR NOTED SINUS RHYTHM WITH OCCASIONAL V-PACING. CONTINUING IV HYDRATION FLUIDS. NO S/S OF HYPER/HYPOGLYCEMIA. BP NOTED 131/75. NO INCREASE IN CONFUSION. CONTINUE TO MONITOR. BP 131/75. BED ALARM ON WITH 3 SIDE RAILS RAISED.
[2017-09-26] MEDS: CLONIDINE HCL 0.2 MG TABLET PO SCH ×3 (05:54→21:45)
[2017-09-26] MEDS ORDERED: LEVOTHYROXINE SODIUM 75 MCG TABLET ONE (06:09)
[2017-09-26] MEDS ORDERED: CLONIDINE HCL 0.2 MG TABLET ONE (06:10)
[2017-09-26] MEDS ORDERED: LEVOTHYROXINE SODIUM 75 MCG TABLET PO SCH (07:00)
[2017-09-26] MEDS ORDERED: LEVOTHYROXINE SODIUM 100 MCG TABLET PO SCH (07:00)
--- NOTE | 2017-09-26 07:00 | NUR ---
Received client in bed asleep. No apparent signs and symptoms of SOB, pain, distress or discomfort. Bed at lowest position for safety and call light within reach for assistance. IV hydration running at this time
[2017-09-26] MEDS: BLOOD SUGAR DIAGNOSTIC 1 EACH STRIP VI SCH ×4 (07:30→21:30)
[2017-09-26] MEDS: INSULIN REGULAR, HUMAN 300 UNIT/3 ML VIAL SQ PRN ×3 (07:39→17:19)
[2017-09-26] MEDS ORDERED: ENALAPRIL 10 MG TABLET PO SCH (09:00)
[2017-09-26] MEDS ORDERED: INSULIN DETEMIR 300 UNIT/3 ML CARTRIDGE SQ SCH (09:00)
[2017-09-26] MEDS ORDERED: DOCUSATE SODIUM 100 MG CAPSULE PO SCH (09:00)
[2017-09-26] MEDS ORDERED: DILTIAZEM HCL CD 120 MG CAP.SR.24H PO SCH (09:00)
[2017-09-26] MEDS ORDERED: FUROSEMIDE 20 MG TABLET PO SCH (09:00)
[2017-09-26] MEDS ORDERED: ASPIRIN 81 MG TAB.CHEW PO SCH (09:00)
[2017-09-26] MEDS ORDERED: INSULIN GLARGINE,HUM 300 UNITS/3 ML CARTRIDGE SQ SCH (09:00)
[2017-09-26] MEDS ORDERED: CARBAMAZEPINE 200 MG TABLET PO SCH (09:00)
[2017-09-26] MEDS ORDERED: METOPROLOL TARTRATE 50 MG TABLET PO SCH (09:00)
[2017-09-26] MEDS: FUROSEMIDE 20 MG TABLET PO SCH (09:14)
[2017-09-26] MEDS ORDERED: HYDROCODONE/APAP 10-325 MG TABLET PO PRN (09:15)
[2017-09-26] MEDS ORDERED: MAGNESIUM HYDROXIDE 30 ML LIQUID UDC PO PRN (09:15)
[2017-09-26] MEDS ORDERED: ONDANSETRON 4 MG/2 ML VIAL IV PRN (09:15)
[2017-09-26] MEDS ORDERED: DEXTROSE 50% 50 ML DISP.SYRIN IV PRN ×2 (09:15→15:15)
[2017-09-26] MEDS: DILTIAZEM HCL CD 120 MG CAP.SR.24H PO SCH (09:16)
[2017-09-26] MEDS: CARBAMAZEPINE 200 MG TABLET PO SCH ×2 (09:17→17:13)
[2017-09-26] MEDS: ASPIRIN 81 MG TAB.CHEW PO SCH (09:17)
[2017-09-26] MEDS: ENALAPRIL 10 MG TABLET PO SCH ×2 (09:17→21:29)
[2017-09-26] MEDS: ACETAMINOPHEN 325 MG TABLET PO PRN (09:18)
[2017-09-26] MEDS: DOCUSATE SODIUM 100 MG CAPSULE PO SCH (09:19)
[2017-09-26] MEDS: METOPROLOL TARTRATE 50 MG TABLET PO SCH ×2 (09:19→21:28)
[2017-09-26] MEDS: INSULIN GLARGINE,HUM 300 UNITS/3 ML CARTRIDGE SQ SCH (09:22)
--- NOTE | 2017-09-26 09:53 | NUR ---
This SW received a voicemail message this morning that was left for this SW last night from ED RN Sandra, requesting psychiatric social worker supervisor follow-up for this patient. Patient was admitted to the telemetry unit last night. MARK consulted with MARK Jason who is the assigned SW for that unit, and informed her of ED request for SW follow-up/consult. Casie is aware of case and stated she would follow-up. This SW informed ED RN Sandra that patient's assigned SW is Casie, and that she will be following up with patient. Sandra agreed.
[2017-09-26 11:48] VITALS: BP 153/83
--- NOTE | 2017-09-26 13:20 | NUR ---
DVT pump machine in place
--- NOTE | 2017-09-26 13:38 | NUR ---
Physical therapy consult taking place right now
--- NOTE | 2017-09-26 13:50 | NUR ---
Client was noted to be ambulatory with walker and with the assistance of two Physical therapists. Client was able to walk around the unit
[2017-09-26 15:36] VITALS: BP 150/73
[2017-09-26] MEDS: HYDROCODONE/APAP 5-325MG TABLET PO PRN (19:26)
--- NOTE | 2017-09-26 19:55 | NUR ---
Client is in bed awake, alert and oriented times 2. Pain medication given, client stating she has lower back pain 8/. No signs and symptoms of SOB, distress or discomfort. Room air. IV is Hep locked because hydration was DC. Bed at lowest position for safety and call light within reach for assistance.
[2017-09-26 20:00] VITALS: BP 136/79
[2017-09-26] MEDS: DONEPEZIL 5 MG TABLET PO SCH (21:30)
[2017-09-26] MEDS: TRAZODONE 100 MG TABLET PO SCH (21:30)
[2017-09-26] MEDS: Z GUARD REMEDY PASTE 57 GM TUBE TOP PRN (21:33)
[2017-09-26] MEDS: INSULIN REGULAR, HUMAN 300 UNITS/3 ML VIAL SQ PRN (21:34)
[2017-09-27] VITALS (7 sets, daily range): BP systolic 103–158; BP diastolic 62–85
--- NOTE | 2017-09-27 05:00 | NUR ---
Patient's accu check result trending down, kept comfortable. Sponge bath provided. Assisted w/ all needs, no acute resp distress. Sinus rhythm on the monitor.
[2017-09-27] MEDS: CLONIDINE HCL 0.2 MG TABLET PO SCH ×3 (06:20→19:46)
[2017-09-27] MEDS: LEVOTHYROXINE SODIUM 75 MCG TABLET PO SCH (06:20)
[2017-09-27] MEDS: BLOOD SUGAR DIAGNOSTIC 1 EACH STRIP VI SCH ×4 (06:23→19:23)
[2017-09-27] MEDS: DOCUSATE SODIUM 100 MG CAPSULE PO SCH (08:34)
[2017-09-27] MEDS: CARBAMAZEPINE 200 MG TABLET PO SCH ×2 (08:35→16:34)
[2017-09-27] MEDS: FUROSEMIDE 20 MG TABLET PO SCH (08:35)
[2017-09-27] MEDS: ASPIRIN 81 MG TAB.CHEW PO SCH (08:35)
[2017-09-27] MEDS: METOPROLOL TARTRATE 50 MG TABLET PO SCH ×2 (08:37→19:47)
[2017-09-27] MEDS: DILTIAZEM HCL CD 120 MG CAP.SR.24H PO SCH (08:37)
[2017-09-27] MEDS: INSULIN REGULAR, HUMAN 300 UNIT/3 ML VIAL SQ PRN ×3 (08:42→16:40)
[2017-09-27] MEDS: INSULIN GLARGINE,HUM 300 UNITS/3 ML CARTRIDGE SQ SCH (08:42)
[2017-09-27] MEDS: ENALAPRIL 10 MG TABLET PO SCH ×2 (09:38→19:43)
[2017-09-27] MEDS: HYDROCODONE/APAP 5-325MG TABLET PO PRN (10:28)
[2017-09-27 11:53] LABS: BASOPHILS % (AUTO) 0.3 % (0.0-2.0); EOSINOPHILS # (AUTO) 0.2 K/uL (0.0-0.7); EOSINOPHILS % (AUTO) 2.5 % (0.0-7.0); HEMATOCRIT 37.4 % (31.2-41.9); HEMOGLOBIN 12.7 g/dL (10.9-14.3); LYMPHOCYTES # (AUTO) 0.7 K/uL (20.0-40.0); LYMPHOCYTES % (AUTO) 11.5 % (20.5-51.5); MEAN CORPUSCULAR HEMOGLOBIN 32.2 uug (24.7-32.8); MEAN CORPUSCULAR HGB CONC 34 g/dL (32.3-35.6); MONOCYTES # (AUTO) 0.4 K/uL (2.0-10.0); MONOCYTES % (AUTO) 5.9 % (0.0-11.0); NEUTROPHILS # (AUTO) 5.1 K/uL (1.8-8.9); NEUTROPHILS % (AUTO) 79.8 % (38.5-71.5); PLATELET COUNT (AUTO) 175 K/uL (179-408); RED BLOOD CELL COUNT(AUTO) 3.94 MIL/uL (3.63-4.92); WHITE BLOOD COUNT (AUTO) 6.4 K/uL (3.8-11.8)
[2017-09-27 12:05] LABS: CARBON DIOXIDE 31 mmol/L (21-32); CHLORIDE 96 mmol/L (98-107); CREATININE 0.8 mg/dL (0.6-1.3); GLUCOSE 269 mg/dL (74-106); POTASSIUM 4.2 mmol/L (3.5-5.1); UREA NITROGEN, BLOOD 21 mg/dL (7-18)
[2017-09-27 14:13] LABS: *BILIRUBIN,URIN NEGATIVE (NEGATIVE); *BLOOD, URINE 1+ (NEGATIVE); *COLOR,URINE YELLOW (YELLOW); *KETONES,URINE NEGATIVE (NEGATIVE); *PROTEIN,URINE NEGATIVE (NEGATIVE); *UROBILINOGEN,URINE 0.2 E.U./dl (NORMAL); LEUKOCYTE ESTERASE ,URINE 2+ (NEGATIVE); NITRITE, URINE POSITIVE (NEGATIVE); UGLUCOSE TRACE (NEGATIVE)
[2017-09-27 14:27] LABS: *CLARITY,URINE CLOUDY (CLEAR)
[2017-09-27 14:29] LABS: BACTERIA,URINE MANY /HPF (NONE SEEN); SQUAMOUS EPITHELIAL CELL,UR FEW /HPF (NONE SEEN); WBC,URINE TNTC /HPF (0-3)
[2017-09-27] MEDS: Z GUARD REMEDY PASTE 57 GM TUBE TOP PRN ×2 (16:41→19:40)
--- NOTE | 2017-09-27 18:00 | NUR ---
Patient resting in bed, in no distress. Pain management and accuchecks as ordered. Assisted patient with toileting needs. VS stable, afebrile. Safety measures in place, will continue to monitor.
[2017-09-27] MEDS: INSULIN REGULAR, HUMAN 300 UNITS/3 ML VIAL SQ PRN (19:39)
[2017-09-27] MEDS: ACETAMINOPHEN 325 MG TABLET PO PRN (19:42)
[2017-09-27] MEDS: TRAZODONE 100 MG TABLET PO SCH (19:43)
[2017-09-27] MEDS: DONEPEZIL 5 MG TABLET PO SCH (19:46)
--- NOTE | 2017-09-27 21:00 | NUR ---
Awake, no SOB denies chest pain. Pleasantly confused disoriented to place. Re orientation initiated, fall precaution observed. Patient tolerated routine night medications. Vital signs WNL. Will continue to monitor.
[2017-09-28 04:00] VITALS: BP 138/75
[2017-09-28] MEDS: CLONIDINE HCL 0.2 MG TABLET PO SCH ×2 (06:28→14:47)
[2017-09-28] MEDS: LEVOTHYROXINE SODIUM 75 MCG TABLET PO SCH (06:28)
[2017-09-28] MEDS: HYDROCODONE/APAP 5-325MG TABLET PO PRN (07:59)
[2017-09-28] MEDS: BLOOD SUGAR DIAGNOSTIC 1 EACH STRIP VI SCH ×3 (08:00→16:46)
[2017-09-28] MEDS: DOCUSATE SODIUM 100 MG CAPSULE PO SCH (08:05)
[2017-09-28] MEDS: ASPIRIN 81 MG TAB.CHEW PO SCH (08:06)
[2017-09-28] MEDS: CARBAMAZEPINE 200 MG TABLET PO SCH ×2 (08:06→16:16)
[2017-09-28] MEDS: FUROSEMIDE 20 MG TABLET PO SCH (08:06)
[2017-09-28] MEDS: METOPROLOL TARTRATE 50 MG TABLET PO SCH (08:06)
[2017-09-28] MEDS: DILTIAZEM HCL CD 120 MG CAP.SR.24H PO SCH (08:07)
[2017-09-28] MEDS: ENALAPRIL 10 MG TABLET PO SCH (08:07)
[2017-09-28] MEDS: INSULIN GLARGINE,HUM 300 UNITS/3 ML CARTRIDGE SQ SCH (08:10)
[2017-09-28] MEDS: INSULIN REGULAR, HUMAN 300 UNIT/3 ML VIAL SQ PRN ×2 (08:13→11:54)
[2017-09-28] MEDS ORDERED: NITROFURANTOIN/NITROFURAN MAC 100 MG CAPSULE PO SCH (11:15)
[2017-09-28 11:38] VITALS: BP 132/60
[2017-09-28 11:55] LABS: CARBON DIOXIDE 32 mmol/L (21-32); CHLORIDE 97 mmol/L (98-107); CREATININE 0.8 mg/dL (0.6-1.3); POTASSIUM 3.8 mmol/L (3.5-5.1); UREA NITROGEN, BLOOD 19 mg/dL (7-18)
[2017-09-28 12:01] LABS: BASOPHILS % (AUTO) 0.8 % (0.0-2.0); EOSINOPHILS # (AUTO) 0.2 K/uL (0.0-0.7); HEMATOCRIT 38.5 % (31.2-41.9); LYMPHOCYTES # (AUTO) 0.7 K/uL (20.0-40.0); MEAN CORPUSCULAR HGB CONC 34 g/dL (32.3-35.6); MEAN CORPUSCULAR VOLUME 94.8 fL (75.5-95.3); MONOCYTES # (AUTO) 0.2 K/uL (2.0-10.0); MONOCYTES % (AUTO) 4.9 % (0.0-11.0); NEUTROPHILS # (AUTO) 3.4 K/uL (1.8-8.9); NEUTROPHILS % (AUTO) 74.3 % (38.5-71.5); PLATELET COUNT (AUTO) 170 K/uL (179-408); RED BLOOD CELL COUNT(AUTO) 4.06 MIL/uL (3.63-4.92)
[2017-09-28 12:15] LABS: WHITE BLOOD COUNT (AUTO) 4.6 K/uL (3.8-11.8)
[2017-09-28 12:18] LABS: GLUCOSE 327 mg/dL (74-106)
[2017-09-28] MEDS ORDERED: NITR100C11 PO (12:23)
[2017-09-28 15:44] VITALS: BP 111/58
--- NOTE | 2017-09-28 17:03 | NUR ---
Patient discharged to [facility]. Report given to NEYMAR Rebolledo. Last medications administered thru 1700 schedule. Patient left unit via gurney/ambulance. Patient is alert, in no distress, VS stable, afebrile. Belonging list done. Discharge papers/instructions provided. IV access removed, ID band removed. Family aware of discharge.
== END 2017-09-28 17:10 | DRG 637 ==
LOC: ER 16:40 → TELE 19:49 → UNDOADMIN 19:49 → ER 20:06 → TELE 20:12 → MED 09-27 11:35
PROVIDERS: ATTEND Nurse Practitioner Acute Care
DX: E11.00 Type 2 diabetes mellitus with hyperosmolarity without nonketotic hyperglycemic-hyperosmolar coma (NKHHC) (principal); G93.41 Metabolic encephalopathy; D68.59 Other primary thrombophilia; G90.8 Other disorders of autonomic nervous system; F31.5 Bipolar disorder, current episode depressed, severe, with psychotic features; E44.1 Mild protein-calorie malnutrition; I49.5 Sick sinus syndrome; E11.65 Type 2 diabetes mellitus with hyperglycemia; I48.91 Unspecified atrial fibrillation; N39.0 Urinary tract infection, site not specified; I50.32 Chronic diastolic (congestive) heart failure; E03.9 Hypothyroidism, unspecified; Z79.4 Long term (current) use of insulin; Z79.82 Long term (current) use of aspirin; Z79.899 Other long term (current) drug therapy; K43.9 Ventral hernia without obstruction or gangrene; Z91.81 History of falling; Z98.84 Bariatric surgery status; Z95.0 Presence of cardiac pacemaker; F31.9 Bipolar disorder, unspecified; I25.2 Old myocardial infarction; Z74.09 Other reduced mobility; Z68.27 Body mass index [BMI] 27.0-27.9, adult; F17.210 Nicotine dependence, cigarettes, uncomplicated; I11.0 Hypertensive heart disease with heart failure; Z91.19 Patient's noncompliance with other medical treatment and regimen; F03.90 Unspecified dementia, unspecified severity, without behavioral disturbance, psychotic disturbance, mood disturbance, and anxiety
CPT/HCPCS: 36415; 85025; 93005; A4663; G0480; G0480-TC; J1815; J7030

== ENCOUNTER 2017-12-12 14:09 | Inpatient (IN) | payer MEDICARE, BC ==
[~2017-12-12] VITALS: Ht 167.6 cm; Wt 73.5 kg
[~2017-12-12 14:09] MED LIST changes: +NITR100C11 PO
--- NOTE | 2017-12-12 14:31 | NUR ---
PTIS IN ROOM #2A. DR CHONG EVALUATED THE PT.
[2017-12-12 14:56] LABS: EOSINOPHILS # (AUTO) 0.3 K/uL (0.0-0.7); EOSINOPHILS % (AUTO) 6.4 % (0.0-7.0); HEMOGLOBIN 12.8 g/dL (10.9-14.3); LYMPHOCYTES # (AUTO) 0.7 K/uL (20.0-40.0); LYMPHOCYTES % (AUTO) 16.4 % (20.5-51.5); MEAN CORPUSCULAR HEMOGLOBIN 32.3 uug (24.7-32.8); MEAN CORPUSCULAR HGB CONC 35 g/dL (32.3-35.6); MEAN CORPUSCULAR VOLUME 93.6 fL (75.5-95.3); MONOCYTES # (AUTO) 0.3 K/uL (2.0-10.0); MONOCYTES % (AUTO) 6.9 % (0.0-11.0); NEUTROPHILS # (AUTO) 2.9 K/uL (1.8-8.9); NEUTROPHILS % (AUTO) 69.3 % (38.5-71.5); PLATELET COUNT (AUTO) 138 K/uL (179-408); RED BLOOD CELL COUNT(AUTO) 3.95 MIL/uL (3.63-4.92); WHITE BLOOD COUNT (AUTO) 4.1 K/uL (3.8-11.8)
[2017-12-12 14:59] LABS: CARBON DIOXIDE 31 mmol/L (21-32); CHLORIDE 101 mmol/L (98-107); POTASSIUM 4.3 mmol/L (3.5-5.1); UREA NITROGEN, BLOOD 20 mg/dL (7-18)
[2017-12-12 15:01] LABS: GLUCOSE 374 mg/dL (74-106)
[2017-12-12 15:02] LABS: *BILIRUBIN,URIN NEGATIVE (NEGATIVE); *BLOOD, URINE Trace-intact (NEGATIVE); *CLARITY,URINE CLEAR (CLEAR); *COLOR,URINE YELLOW (YELLOW); *KETONES,URINE NEGATIVE (NEGATIVE); *PROTEIN,URINE NEGATIVE (NEGATIVE); *UROBILINOGEN,URINE 0.2 E.U./dl (NORMAL); LEUKOCYTE ESTERASE ,URINE NEGATIVE (NEGATIVE); NITRITE, URINE NEGATIVE (NEGATIVE)
[2017-12-12 15:05] LABS: ALANINE AMINOTRANSFERASE 25 U/L (14-59); ALKALINE PHOSPHATASE 74 U/L (50-136); ASPARTATE AMINOTRANSFERASE 13 U/L (15-37); BILIRUBIN,DIRECT 0.1 mg/dL (0.0-0.2); BILIRUBIN,TOTAL 0.3 mg/dL (0.2-1.0); TOTAL PROTEIN, SERUM 6.5 g/dL (6.4-8.2)
[2017-12-12 15:09] LABS: ETHANOL < 3 MG/DL (0-0)
[2017-12-12 15:11] LABS: UGLUCOSE 2+ (NEGATIVE)
[2017-12-12 15:12] LABS: SQUAMOUS EPITHELIAL CELL,UR MODERATE /HPF (NONE SEEN)
[2017-12-12 15:13] LABS: THYROID STIMULATING HORMONE 0.389 mIU/mL (0.358-3.740)
[2017-12-12 15:17] LABS: *AMPHETAMINE, URINE NEGATIVE (NEGATIVE); *BARBITURATE, URINE NEGATIVE (NEGATIVE); *CANNABINOID, URINE NEGATIVE (NEGATIVE); *COCCAINE, URINE NEGATIVE (NEGATIVE); *PHENCYCLIDINE SCREEN,URINE NEGATIVE (NEGATIVE)
[2017-12-12 15:25] LABS: *OPIATE, URINE POSITIVE (NEGATIVE)
[2017-12-12] MEDS ORDERED: IV NORMAL SALINE 1000 ML BAG IV ONE (15:45)
[2017-12-12] MEDS ORDERED: INSULIN REGULAR, HUMAN 1,000 UNITS/10 ML VIAL IV ONE (15:45)
[2017-12-12] MEDS ORDERED: INSULIN REGULAR, HUMAN 300 UNIT/3 ML VIAL ONE (15:55)
--- NOTE | 2017-12-12 18:28 | NUR ---
REPORT GIVEN TO RN MHU. PT WAS TRANSFERED TO ROOM #145.
[2017-12-12 20:06] VITALS: BP 164/80
[2017-12-12] MEDS ORDERED: DEXTROSE 50% 50 ML DISP.SYRIN IV PRN (20:15)
[2017-12-12] MEDS: BLOOD SUGAR DIAGNOSTIC 1 EACH STRIP VI SCH ×2 (20:55→22:15)
[2017-12-12] MEDS: ENALAPRIL 10 MG TABLET PO SCH (20:57)
[2017-12-12] MEDS ORDERED: DONEPEZIL 5 MG TABLET PO SCH (21:00)
[2017-12-12] MEDS ORDERED: MAGNESIUM HYDROXIDE 30 ML LIQUID UDC PO PRN (21:00)
[2017-12-12] MEDS ORDERED: MAG HYDROX/AL HYDROX/SIMETH 30 ML LIQUID UDC PO PRN (21:00)
[2017-12-12] MEDS: CLONIDINE HCL 0.2 MG TABLET PO SCH (22:05)
[2017-12-12] MEDS: TEMAZEPAM 7.5 MG CAPSULE PO PRN (22:10)
[2017-12-12] MEDS: ACETAMINOPHEN 325 MG TABLET PO PRN (22:10)
[2017-12-12] MEDS: INSULIN REGULAR, HUMAN 300 UNIT/3 ML VIAL SQ PRN (22:16)
[2017-12-13] MEDS: INSULIN GLARGINE,HUM 300 UNITS/3 ML CARTRIDGE SQ SCH
[2017-12-13] MEDS: BLOOD SUGAR DIAGNOSTIC 1 EACH STRIP VI SCH ×8 (01:29→17:26)
[2017-12-13] MEDS: CLONIDINE HCL 0.2 MG TABLET PO SCH ×2 (05:29→14:25)
--- NOTE | 2017-12-13 05:40 | NUR ---
Patient BS was 38mg/dl. Patient denies any s/s of hypoglycemia. She's alert and awake, verbally responsive. Apple juice was given. Will recheck BS after 15 minutes.
[2017-12-13] MEDS: PANTOPRAZOLE SODIUM 40 MG TABLET.DR PO SCH (06:00)
[2017-12-13] MEDS: LEVOTHYROXINE SODIUM 100 MCG TABLET PO SCH (06:00)
--- NOTE | 2017-12-13 06:00 | NUR ---
BS 84 mg/dl. Continue to monitor. Charge nurse made aware.
--- NOTE | 2017-12-13 06:19 | NUR ---
Patient slept 4.5 hours. No behavioral issues. A/O x 1. VSS Stable. Blood sugar went down to as low as 61. Several juices and snacks given, rechecked latest B.S. at 0600 = 84. Closely monitoring. Noted umbilical hernia. Skin intact. Safety and comfort measures maintained t/o shift. All meds given as ordered with no adverse effects.
--- NOTE | 2017-12-13 06:19 | NUR ---
Having a shower at this time.
--- NOTE | 2017-12-13 06:52 | NUR ---
Latest BS 114 mg/dl.
[2017-12-13 07:30] VITALS: BP 139/93
[2017-12-13] MEDS: DOCUSATE SODIUM 100 MG CAPSULE PO SCH (08:21)
[2017-12-13] MEDS: METOPROLOL TARTRATE 50 MG TABLET PO SCH ×2 (08:22→21:56)
[2017-12-13] MEDS: FUROSEMIDE 20 MG TABLET PO SCH (08:22)
[2017-12-13] MEDS: ASPIRIN 81 MG TAB.CHEW PO SCH (08:22)
[2017-12-13] MEDS: ENALAPRIL 10 MG TABLET PO SCH ×2 (08:22→21:56)
[2017-12-13] MEDS: MULTIVITAMINS,THERAPEUTIC TABLET PO SCH (08:23)
[2017-12-13] MEDS: DILTIAZEM HCL CD 120 MG CAP.SR.24H PO SCH (08:23)
[2017-12-13] MEDS ORDERED: Medication Not On Formulary EA (Omeprazole 1 CAP) PO SCH (09:00)
[2017-12-13] MEDS ORDERED: Medication Not On Formulary EA (Enalapril Maleate (Vasotec) 20 MG) PO SCH (09:00)
[2017-12-13] MEDS ORDERED: Medication Not On Formulary EA (Multivitamins (Multivitamin) 1 TAB) PO SCH (09:00)
[2017-12-13] MEDS: INSULIN REGULAR, HUMAN 300 UNIT/3 ML VIAL SQ PRN ×5 (12:30→17:28)
--- NOTE | 2017-12-13 14:00 | NUR ---
Gps/Barrel Loader And Cleaner-Texted and called Dr Almonte to clarified previous order of q 2 hours accu-checks with sliding scales. Also texted Andrade Melendez DNP for the same order clarifications. Patient refusing to be poked all the time . Continue to monitor for s/s of hypo/hyperglycemia.
--- NOTE | 2017-12-13 14:56 | NUR ---
Gps/Berenice Melendez DNP returned call, clarified previous order accu checks as well as sliding scales, orders received.
[2017-12-13] MEDS ORDERED: DEXTROSE 50% 50 ML DISP.SYRIN IV PRN (15:00)
[2017-12-13 16:34] VITALS: BP 148/84
[2017-12-13] MEDS ORDERED: BLOOD SUGAR DIAGNOSTIC 1 EACH STRIP VI SCH (18:00)
--- NOTE | 2017-12-13 18:00 | NUR ---
Gps/Plater Printed Circuit Board Panels- Patient's daughter called couple of times was able to talked to the patient . Verbalized concern regarding patient situation.Reassured patient doing better, remains up on her thanh-chair , redirectable.
[2017-12-13] MEDS ORDERED: ARIPIPRAZOLE 5 MG TABLET PO ONE (21:45)
[2017-12-13] MEDS: RIVASTIGMINE TARTRATE 1.5 MG CAPSULE PO SCH (21:57)
[2017-12-14] VITALS (7 sets, daily range): BP systolic 129–205; BP diastolic 59–100
[2017-12-14] MEDS: BLOOD SUGAR DIAGNOSTIC 1 EACH STRIP VI SCH ×4 (00:40→17:20)
[2017-12-14] MEDS: CLONIDINE HCL 0.2 MG TABLET PO SCH ×4 (00:50→21:10)
[2017-12-14] MEDS: LEVOTHYROXINE SODIUM 100 MCG TABLET PO SCH (07:12)
[2017-12-14] MEDS: PANTOPRAZOLE SODIUM 40 MG TABLET.DR PO SCH (07:12)
[2017-12-14] MEDS: FUROSEMIDE 20 MG TABLET PO SCH (08:06)
[2017-12-14] MEDS: ENALAPRIL 10 MG TABLET PO SCH ×2 (08:06→20:06)
[2017-12-14] MEDS: DILTIAZEM HCL CD 120 MG CAP.SR.24H PO SCH (08:06)
[2017-12-14] MEDS: MULTIVITAMINS,THERAPEUTIC TABLET PO SCH (08:08)
[2017-12-14] MEDS: ASPIRIN 81 MG TAB.CHEW PO SCH (08:09)
[2017-12-14] MEDS: METOPROLOL TARTRATE 50 MG TABLET PO SCH ×2 (08:09→20:05)
[2017-12-14] MEDS: RIVASTIGMINE TARTRATE 1.5 MG CAPSULE PO SCH ×2 (08:09→20:06)
[2017-12-14] MEDS: DOCUSATE SODIUM 100 MG CAPSULE PO SCH (08:13)
[2017-12-14] MEDS: ARIPIPRAZOLE 5 MG TABLET PO SCH ×2 (08:15→20:04)
[2017-12-14] MEDS: INSULIN REGULAR, HUMAN 300 UNIT/3 ML VIAL SQ PRN ×2 (08:23→13:08)
[2017-12-14] MEDS ORDERED: CARBAMAZEPINE 200 MG TABLET PO SCH (09:00)
[2017-12-14] MEDS ORDERED: RIVASTIGMINE TARTRATE 1.5 MG CAPSULE PO SCH (09:00)
[2017-12-14] MEDS: CARBAMAZEPINE 200 MG TABLET PO SCH (09:13)
[2017-12-14] MEDS: hydrALAZINE HCL 25 MG TABLET PO SCH ×3 (10:15→21:10)
[2017-12-14] MEDS: LORAZEPAM 0.5 MG TABLET PO PRN (12:10)
[2017-12-14] MEDS: ACETAMINOPHEN 325 MG TABLET PO PRN (12:10)
--- NOTE | 2017-12-14 18:00 | NUR ---
Gps/Foundry Finisher- Patient refusing to eat dinner, reviewed importance of having her meals/nutritions r/t her being diabetic, needed reinforcement. Will re offer her food, snacks. Monitor for hypo/hyperglycemia.
--- NOTE | 2017-12-14 18:51 | NUR ---
Gps/Labor Contract Analyst- Encouraged to drink her low fat milk and had apple sauce, fed pt., refusing to eat dinner
--- NOTE | 2017-12-14 18:53 | NUR ---
Gps/Lvnp Per patient if she will be sent home , she will start eating , informed she will not be sent home if does not eat, fluids offered
--- NOTE | 2017-12-14 20:00 | NUR ---
RECEIVED PATIENT IN HER ROOM ASLEEP BUT EASILY AROUSABLE, SHE IS NOTED A/O X 2. SHE IS ABLE TO MAKE HER NEEDS KNOWN. SHE IS NOTED WITH CALM, WITHDRAWN, LOW MOOD; HOWEVER, SHE DENIES SI/AH/VA. SHE IS ABLE TO CFS. SAFETY EMPHASIS. WILL CONTINUE TO MONITOR.
--- NOTE | 2017-12-14 20:10 | NUR ---
PATIENT'S B/P AT 1999 IS 200/100MMGH PULSE 70BPM.ROUTINE B/P MEDICATIONS VASOTEC 10MG AND LOPRESSOR 50MG PO GIVEN. WILL CONTINUE TO MONITOR CLOSELY.
[2017-12-14] MEDS: INSULIN GLARGINE,HUM 300 UNITS/3 ML CARTRIDGE SQ SCH (21:00)
--- NOTE | 2017-12-14 21:10 | NUR ---
RECHECKED V/S AT 2049. B/P 197/91 AND PULSE 62BPM. ROUTINE B/P MEDS: APRESOLINE 25MG AND CATAPRES 0.2MG GIVEN. PATIENT IN NO DISTRESS. WILL CONTINUE TO MONITOR CLOSELY.
[2017-12-14] MEDS: HYDROCODONE/APAP 10-325 MG TABLET PO PRN (22:46)
--- NOTE | 2017-12-14 22:46 | NUR ---
PATIENT C/O A HEADACHE 8/10 IN THE INTENSITY SCALE. NORCO 10/325MG PO PRN WAS GIVEN. WILL CONTINUE TO MONITOR CLOSELY.
--- NOTE | 2017-12-14 23:20 | NUR ---
RECHECKED V/S: B/P 169/84MMHG AND PULSE 59BPM. PT IN NO ACUTE DISTRESS, NO CHANGES IN LOC. WILL CONTINUE TO MONITOR, CLOSELY.
[2017-12-15] VITALS (7 sets, daily range): BP systolic 91–206; BP diastolic 54–91
[2017-12-15] MEDS: BLOOD SUGAR DIAGNOSTIC 1 EACH STRIP VI SCH ×5 (00:25→20:41)
[2017-12-15] MEDS: hydrALAZINE HCL 25 MG TABLET PO SCH ×4 (00:46→22:35)
--- NOTE | 2017-12-15 00:52 | NUR ---
V/S WERE RECHECKED. B/P 206/91MMHG. PT IN NO DISTRESS, NO CHANGES IN LOC. DR KINCAID WAS NOTIFY AND NEW ORDER OBTAINED TO CHANGES APRESOLINE 25MG PO Q8HRS TO APRESOLINE 50MG PO Q8HRS STARING FIRST DOSE AT 0030 AND NITRO-BID OINT 1GM TP Q6HRS PRN FOR SBP >160MMHG. BLOOD GLUCOSE 205 AT 0000; HOWEVER, PATIENT HAS BEEN REFUSING SNACKS. PER DR ACEVEDO, TO HOLD INSULIN AT THIS TIME. FIRST DOSE OF APRESOLINE 50M PO WAS GIVEN. WILL CONTINUE TO MONITOR CLOSELY.
[2017-12-15] MEDS: NITROGLYCERIN OINT 1 GM PACKET TP PRN (02:01)
--- NOTE | 2017-12-15 02:07 | NUR ---
B/P WAS RECHECKED: 165/84MMHG. NITRO-BID OINT 1GM TP PRN WAS PLACED IN HER RIGHT UPPER CHEST. WILL CONTINUE TO MONITOR.
--- NOTE | 2017-12-15 03:00 | NUR ---
PATIENT B/P IS 146/82MMHG AND PULSE 62BPM. WILL CONTINUE TO MONITOR.
[2017-12-15] MEDS: PANTOPRAZOLE SODIUM 40 MG TABLET.DR PO SCH (06:14)
[2017-12-15] MEDS: LEVOTHYROXINE SODIUM 75 MCG TABLET PO SCH (06:14)
[2017-12-15] MEDS: INSULIN REGULAR, HUMAN 300 UNIT/3 ML VIAL SQ PRN ×3 (06:16→17:29)
[2017-12-15] MEDS: CLONIDINE HCL 0.2 MG TABLET PO SCH ×3 (06:18→22:35)
--- NOTE | 2017-12-15 07:01 | NUR ---
PATIENT HAS NOT HAVE A BM SINCE ADMISSION ON 12/12/17 AT 1900. MOM 30ML PO PRN WAS GIVEN. WILL CONTINUE TO MONITOR.
[2017-12-15] MEDS: LORAZEPAM 0.5 MG TABLET PO PRN (08:23)
[2017-12-15] MEDS: CARBAMAZEPINE 200 MG TABLET PO SCH ×2 (08:37→20:26)
[2017-12-15] MEDS: FUROSEMIDE 20 MG TABLET PO SCH (08:37)
[2017-12-15] MEDS: ASPIRIN 81 MG TAB.CHEW PO SCH (08:37)
[2017-12-15] MEDS: MULTIVITAMINS,THERAPEUTIC TABLET PO SCH (08:37)
[2017-12-15] MEDS: RIVASTIGMINE TARTRATE 1.5 MG CAPSULE PO SCH ×2 (08:37→20:26)
[2017-12-15] MEDS: ARIPIPRAZOLE 5 MG TABLET PO SCH ×2 (08:37→20:25)
[2017-12-15] MEDS: DOCUSATE SODIUM 100 MG CAPSULE PO SCH (08:37)
[2017-12-15] MEDS: DILTIAZEM HCL CD 120 MG CAP.SR.24H PO SCH (08:38)
[2017-12-15] MEDS: METOPROLOL TARTRATE 50 MG TABLET PO SCH ×2 (08:38→20:29)
[2017-12-15] MEDS: ENALAPRIL 10 MG TABLET PO SCH ×2 (08:39→20:31)
[2017-12-15] MEDS: HYDROCODONE/APAP 10-325 MG TABLET PO PRN ×2 (11:31→20:52)
--- NOTE | 2017-12-15 15:53 | NUR ---
Initial DC Plan: Patient currently lives at home with her daughter Mary [[address] [place] [address]; [phone]]. SW spoke with patient's daughter who stated she would like patient to be transported home via taxi when she is ready for discharge. SW will follow up with MD, patient, and patient's daughter to discuss most appropriate discharge plans. SW will form a safe and proper discharge.
[2017-12-15] MEDS: CLONAZEPAM 0.5 MG TABLET PO SCH (16:10)
[2017-12-15] MEDS: INSULIN GLARGINE,HUM 300 UNITS/3 ML CARTRIDGE SQ SCH (20:44)
--- NOTE | 2017-12-15 22:30 | NUR ---
received to care, lying in bed, isolative, but pleasant upon approach. PRN norco was given at 2051, for posterior neck pain, 02/24. which was relieved well (11/25), by 2199. she remains compliant with medications and staff direction, including bedtime snack. as of 2229, she appears to be asleep. no distress noted. will continue to monitor closely.
[2017-12-16] MEDS: BLOOD SUGAR DIAGNOSTIC 1 EACH STRIP VI SCH ×4 (00:05→17:22)
[2017-12-16] MEDS: INSULIN REGULAR, HUMAN 300 UNIT/3 ML VIAL SQ PRN ×4 (00:19→17:23)
[2017-12-16] MEDS: TEMAZEPAM 7.5 MG CAPSULE PO PRN ×2 (00:32→22:11)
--- NOTE | 2017-12-16 00:32 | NUR ---
PRN restoril given for insomnia
--- NOTE | 2017-12-16 01:00 | NUR ---
appears to be asleep. no distress noted.
[2017-12-16] MEDS: LORAZEPAM 0.5 MG TABLET PO PRN ×2 (04:42→14:44)
--- NOTE | 2017-12-16 04:42 | NUR ---
pt is now awake, and crying, attempting to climb out of bed. states she is worried about her family, being with out her. she was reassured, but remains anxious, and tearful; PRN ativan was given at this time, for anxiety. currently up in thanh chair, at nurses station, for safety.
[2017-12-16] MEDS: CLONIDINE HCL 0.2 MG TABLET PO SCH ×3 (06:00→22:11)
[2017-12-16] MEDS: hydrALAZINE HCL 25 MG TABLET PO SCH ×3 (06:00→22:00)
--- NOTE | 2017-12-16 06:00 | NUR ---
appears calmer, now. remains needy and tearful, but easier to redirect. assisted with am care. slept 7.5 hours, total.
[2017-12-16] MEDS: LEVOTHYROXINE SODIUM 75 MCG TABLET PO SCH (06:12)
[2017-12-16] MEDS: PANTOPRAZOLE SODIUM 40 MG TABLET.DR PO SCH (06:12)
[2017-12-16 07:30] VITALS: BP 96/60
[2017-12-16] MEDS: CLONAZEPAM 0.5 MG TABLET PO SCH ×2 (08:36→16:13)
[2017-12-16] MEDS: MULTIVITAMINS,THERAPEUTIC TABLET PO SCH (08:36)
[2017-12-16] MEDS: ARIPIPRAZOLE 5 MG TABLET PO SCH ×2 (08:36→20:23)
[2017-12-16] MEDS: RIVASTIGMINE TARTRATE 1.5 MG CAPSULE PO SCH ×2 (08:36→20:22)
[2017-12-16] MEDS: FUROSEMIDE 20 MG TABLET PO SCH (08:36)
[2017-12-16] MEDS: DOCUSATE SODIUM 100 MG CAPSULE PO SCH (08:36)
[2017-12-16] MEDS: ASPIRIN 81 MG TAB.CHEW PO SCH (08:36)
[2017-12-16] MEDS: DILTIAZEM HCL CD 120 MG CAP.SR.24H PO SCH (08:37)
[2017-12-16] MEDS: CARBAMAZEPINE 200 MG TABLET PO SCH ×2 (08:37→20:21)
[2017-12-16] MEDS: METOPROLOL TARTRATE 50 MG TABLET PO SCH ×2 (08:37→20:22)
[2017-12-16] MEDS: ENALAPRIL 10 MG TABLET PO SCH ×2 (08:38→20:22)
[2017-12-16 15:10] VITALS: BP 127/75
--- NOTE | 2017-12-16 19:00 | NUR ---
Received patient up in a Robyn chair, conversing with other fellow patient.No s/s of pain/discomforts at this time. Very manic today. Will continue to monitor.
[2017-12-16 20:50] VITALS: BP 162/72
--- NOTE | 2017-12-16 21:00 | NUR ---
remains up in thanh chair, talking non stop. difficult to redirect. compliant with medications, and staff direction.
[2017-12-16] MEDS: INSULIN GLARGINE,HUM 300 UNITS/3 ML CARTRIDGE SQ SCH (21:03)
--- NOTE | 2017-12-16 22:11 | NUR ---
remains anxious, and hyperverbal. talking word salad. remains confused and disorganized. up in thanh chair, at nurses station. PRN restoril was given for insomnia.
[2017-12-16] MEDS: HYDROCODONE/APAP 10-325 MG TABLET PO PRN (23:24)
[2017-12-17] MEDS: BLOOD SUGAR DIAGNOSTIC 1 EACH STRIP VI SCH ×4 (00:07→17:22)
[2017-12-17] MEDS: LORAZEPAM 0.5 MG TABLET PO PRN (01:21)
--- NOTE | 2017-12-17 01:21 | NUR ---
remains awake, and restless. up in thanh chair, talking to unseen entities, yelling intermittently. PRN ativan was given at this time.
--- NOTE | 2017-12-17 02:30 | NUR ---
REMAINS AWAKE. APPEARS SLIGHTLY CALMER. CONTINUES TO TALK TO SELF.
[2017-12-17] MEDS: ACETAMINOPHEN 325 MG TABLET PO PRN (03:00)
[2017-12-17] MEDS: hydrALAZINE HCL 25 MG TABLET PO SCH ×4 (05:55→22:00)
[2017-12-17] MEDS: CLONIDINE HCL 0.2 MG TABLET PO SCH ×4 (05:55→22:03)
[2017-12-17] MEDS: PANTOPRAZOLE SODIUM 40 MG TABLET.DR PO SCH (06:03)
[2017-12-17] MEDS: LEVOTHYROXINE SODIUM 75 MCG TABLET PO SCH (06:03)
--- NOTE | 2017-12-17 06:03 | NUR ---
slept 2.5 hours. assisted with am care, and shower. remains hyperverbal, but appears calmer. will continue to monitor closely.
--- NOTE | 2017-12-17 06:40 | NUR ---
Patient in a Robyn-chair in the hallway after shower. calm and pleasantly confused but continue talking and talking. Continue care as planned.
[2017-12-17 07:30] VITALS: BP 103/43
[2017-12-17] MEDS: CLONAZEPAM 0.5 MG TABLET PO SCH ×2 (08:10→17:22)
[2017-12-17] MEDS: ARIPIPRAZOLE 5 MG TABLET PO SCH (08:11)
[2017-12-17] MEDS: MULTIVITAMINS,THERAPEUTIC TABLET PO SCH (08:12)
[2017-12-17] MEDS: ASPIRIN 81 MG TAB.CHEW PO SCH (08:12)
[2017-12-17] MEDS: RIVASTIGMINE TARTRATE 1.5 MG CAPSULE PO SCH ×2 (08:12→20:26)
[2017-12-17] MEDS: DOCUSATE SODIUM 100 MG CAPSULE PO SCH (08:12)
[2017-12-17] MEDS: CARBAMAZEPINE 200 MG TABLET PO SCH ×2 (08:17→20:26)
[2017-12-17] MEDS: DILTIAZEM HCL CD 120 MG CAP.SR.24H PO SCH (08:24)
[2017-12-17] MEDS: METOPROLOL TARTRATE 50 MG TABLET PO SCH ×2 (08:25→20:22)
[2017-12-17] MEDS: FUROSEMIDE 20 MG TABLET PO SCH (08:25)
[2017-12-17] MEDS: ENALAPRIL 10 MG TABLET PO SCH ×2 (08:25→20:23)
--- NOTE | 2017-12-17 08:26 | NUR ---
Gps/System Safety Engineer- Sukhjinder Pierre in to see patient informed of the low b/p 103/43, orders received.
[2017-12-17] MEDS: INSULIN REGULAR, HUMAN 300 UNIT/3 ML VIAL SQ PRN ×2 (12:29→17:30)
[2017-12-17 15:17] VITALS: BP 152/62
[2017-12-17] MEDS ORDERED: LORAZEPAM 0.5 MG TABLET PO PRN (16:00)
--- NOTE | 2017-12-17 17:49 | NUR ---
Gps/Song Writer- Emotionally labile, crying spells noted.Need prompting to initiate simple tasks. Safety reviewed and emphasized.Able to talk to her daughter couple of times.
[2017-12-17 20:00] VITALS: BP 96/50
[2017-12-17] MEDS: ARIPIPRAZOLE 10 MG TABLET PO SCH (20:26)
[2017-12-17] MEDS: INSULIN GLARGINE,HUM 300 UNITS/3 ML CARTRIDGE SQ SCH (20:40)
[2017-12-17] MEDS ORDERED: ARIPIPRAZOLE 5 MG TABLET PO SCH (21:00)
--- NOTE | 2017-12-17 22:00 | NUR ---
received to care, up in thanh chair, sleeping intermittently, but arousable, and responds verbally. b/p meds were held, due to low b/p. 96/50. all other meds were given. as of 2199, she appears to be asleep, in bed. no distress noted. will continue to monitor closely.
[2017-12-18] MEDS: BLOOD SUGAR DIAGNOSTIC 1 EACH STRIP VI SCH ×5 (00:07→20:45)
[2017-12-18] MEDS: INSULIN REGULAR, HUMAN 300 UNIT/3 ML VIAL SQ PRN ×6 (00:08→20:48)
--- NOTE | 2017-12-18 00:09 | NUR ---
pt is asleep. able to be awakened, and respnds verbally, but falls right back to sleep. blood sugar at midnight was 234. insulin coverage was held, due to the fact that she is not awake enough to be fed. will continue to monitor closely.
[2017-12-18] MEDS: LEVOTHYROXINE SODIUM 75 MCG TABLET PO SCH (06:09)
[2017-12-18] MEDS: PANTOPRAZOLE SODIUM 40 MG TABLET.DR PO SCH (06:09)
[2017-12-18] MEDS: hydrALAZINE HCL 25 MG TABLET PO SCH ×3 (06:09→21:54)
[2017-12-18] MEDS: CLONIDINE HCL 0.2 MG TABLET PO SCH ×3 (06:10→21:55)
--- NOTE | 2017-12-18 06:40 | NUR ---
slept 10 hours, total. is awake and alert. assisted with toileting, and am care. as of 629, she appears to be asleep. no distress noted.
--- NOTE | 2017-12-18 06:40 | NUR ---
Patient woke up this AM complaining of left eye "stinging" with redness. Cleansed affected area, discomfort improved however redness remains. Will endorse to day shift nurse.
[2017-12-18 07:30] VITALS: BP 86/46
[2017-12-18] MEDS: MULTIVITAMINS,THERAPEUTIC TABLET PO SCH (08:30)
[2017-12-18] MEDS: RIVASTIGMINE TARTRATE 1.5 MG CAPSULE PO SCH ×2 (08:30→20:37)
[2017-12-18] MEDS: DOCUSATE SODIUM 100 MG CAPSULE PO SCH (08:30)
[2017-12-18] MEDS: ARIPIPRAZOLE 10 MG TABLET PO SCH ×2 (08:30→20:37)
[2017-12-18] MEDS: CARBAMAZEPINE 200 MG TABLET PO SCH ×2 (08:31→20:38)
[2017-12-18] MEDS: CLONAZEPAM 0.5 MG TABLET PO SCH ×2 (08:31→18:38)
[2017-12-18] MEDS: METOPROLOL TARTRATE 50 MG TABLET PO SCH ×2 (08:32→20:38)
[2017-12-18] MEDS: ENALAPRIL 10 MG TABLET PO SCH ×2 (08:32→20:38)
[2017-12-18] MEDS: FUROSEMIDE 20 MG TABLET PO SCH (08:32)
[2017-12-18] MEDS: DILTIAZEM HCL CD 120 MG CAP.SR.24H PO SCH (08:33)
[2017-12-18] MEDS: ASPIRIN 81 MG TAB.CHEW PO SCH (08:33)
--- NOTE | 2017-12-18 12:39 | NUR ---
Gps/Broodmare Barn Groom- Dr Pierre was in to see patient, informed of redness on her her left eye, patient claimed slight burning , orders received.
[2017-12-18] MEDS: TOBRAMYCIN/DEXAMETH OPHT DROP 2.5 ML BOTTLE EACHEYE SCH ×2 (14:13→18:39)
[2017-12-18] MEDS: HYDROCODONE/APAP 10-325 MG TABLET PO PRN (14:37)
--- NOTE | 2017-12-18 15:11 | NUR ---
Firearms Reporting: MARK submitted Mental Health Report to [facility] on 12/18.
[2017-12-18 15:14] VITALS: BP 133/58
[2017-12-18] MEDS ORDERED: DEXTROSE 50% 50 ML DISP.SYRIN IV PRN (15:38)
[2017-12-18 20:22] VITALS: BP 110/64
[2017-12-18] MEDS: INSULIN GLARGINE,HUM 300 UNITS/3 ML CARTRIDGE SQ SCH (20:49)
[2017-12-19] MEDS: CLONIDINE HCL 0.2 MG TABLET PO SCH ×3 (06:00→21:12)
[2017-12-19] MEDS: PANTOPRAZOLE SODIUM 40 MG TABLET.DR PO SCH (06:00)
[2017-12-19] MEDS: LEVOTHYROXINE SODIUM 75 MCG TABLET PO SCH (06:00)
[2017-12-19] MEDS: TOBRAMYCIN/DEXAMETH OPHT DROP 2.5 ML BOTTLE EACHEYE SCH ×5 (06:01→23:11)
[2017-12-19] MEDS: hydrALAZINE HCL 25 MG TABLET PO SCH ×3 (06:01→21:12)
[2017-12-19] MEDS: BLOOD SUGAR DIAGNOSTIC 1 EACH STRIP VI SCH ×4 (06:34→20:18)
[2017-12-19 07:30] VITALS: BP 117/69
--- NOTE | 2017-12-19 07:30 | NUR ---
Shift report given by nightshift RN. Pt without significant change in condition during noc shift. Compliant with medications. Rec'd up in w/c in dayroom. In fair condition. On RA, no SOB. No s/s of acute distress noted. Denies pain. No s/s of hypo/hyperglycemia noted. Will continue to monitor for change.
[2017-12-19] MEDS: INSULIN REGULAR, HUMAN 300 UNIT/3 ML VIAL SQ PRN ×4 (07:45→20:20)
[2017-12-19] MEDS: ASPIRIN 81 MG TAB.CHEW PO SCH (08:10)
[2017-12-19] MEDS: ARIPIPRAZOLE 10 MG TABLET PO SCH ×2 (08:10→20:11)
[2017-12-19] MEDS: DILTIAZEM HCL CD 120 MG CAP.SR.24H PO SCH (08:11)
[2017-12-19] MEDS: CLONAZEPAM 0.5 MG TABLET PO SCH ×2 (08:12→17:16)
[2017-12-19] MEDS: DOCUSATE SODIUM 100 MG CAPSULE PO SCH (08:12)
[2017-12-19] MEDS: RIVASTIGMINE TARTRATE 1.5 MG CAPSULE PO SCH ×2 (08:12→20:12)
[2017-12-19] MEDS: FUROSEMIDE 20 MG TABLET PO SCH (08:13)
[2017-12-19] MEDS: METOPROLOL TARTRATE 50 MG TABLET PO SCH ×2 (08:14→20:13)
[2017-12-19] MEDS: CARBAMAZEPINE 200 MG TABLET PO SCH ×2 (08:14→20:12)
[2017-12-19] MEDS: ENALAPRIL 10 MG TABLET PO SCH ×2 (08:15→20:11)
[2017-12-19] MEDS: MULTIVITAMINS,THERAPEUTIC TABLET PO SCH (08:15)
[2017-12-19] MEDS: VENLAFAXINE XR 37.5 MG CAP.SR.24H PO SCH (11:05)
[2017-12-19] MEDS: LORAZEPAM 1 MG TABLET PO PRN (11:57)
[2017-12-19 15:00] VITALS: BP 150/80
--- NOTE | 2017-12-19 18:26 | NUR ---
Pt remained in fair condition during shift. Pt continues to be sad and tearful. Noted irritable on approach at times. Compliant with medication regimen. Up in w/c most of the day and participated in activities in the dayroom. Noted with good apetite during meals. Denies pain. Started on Effexor. No adverse side effects noted. All needs met at this time. Will continue to monitor for change.
[2017-12-19] MEDS: INSULIN GLARGINE,HUM 300 UNITS/3 ML CARTRIDGE SQ SCH (20:19)
[2017-12-19 22:36] VITALS: BP 131/74
[2017-12-19] MEDS: TEMAZEPAM 7.5 MG CAPSULE PO PRN (23:11)
[2017-12-20] MEDS: TOBRAMYCIN/DEXAMETH OPHT DROP 2.5 ML BOTTLE EACHEYE SCH ×3 (05:56→17:23)
[2017-12-20] MEDS: hydrALAZINE HCL 25 MG TABLET PO SCH ×3 (05:57→22:00)
[2017-12-20] MEDS: CLONIDINE HCL 0.2 MG TABLET PO SCH ×3 (05:58→22:00)
[2017-12-20] MEDS: LEVOTHYROXINE SODIUM 75 MCG TABLET PO SCH (06:12)
[2017-12-20] MEDS: PANTOPRAZOLE SODIUM 40 MG TABLET.DR PO SCH (06:12)
[2017-12-20] MEDS: BLOOD SUGAR DIAGNOSTIC 1 EACH STRIP VI SCH ×4 (06:34→20:36)
[2017-12-20 07:30] VITALS: BP 139/73
[2017-12-20] MEDS: INSULIN REGULAR, HUMAN 300 UNIT/3 ML VIAL SQ PRN ×4 (07:58→20:44)
[2017-12-20] MEDS: ARIPIPRAZOLE 10 MG TABLET PO SCH ×2 (08:07→20:35)
[2017-12-20] MEDS: ACETAMINOPHEN 325 MG TABLET PO PRN (08:07)
[2017-12-20] MEDS: DOCUSATE SODIUM 100 MG CAPSULE PO SCH (08:08)
[2017-12-20] MEDS: CARBAMAZEPINE 200 MG TABLET PO SCH ×2 (08:08→20:36)
[2017-12-20] MEDS: ENALAPRIL 10 MG TABLET PO SCH ×2 (08:08→20:35)
[2017-12-20] MEDS: DILTIAZEM HCL CD 120 MG CAP.SR.24H PO SCH (08:08)
[2017-12-20] MEDS: VENLAFAXINE XR 37.5 MG CAP.SR.24H PO SCH (08:08)
[2017-12-20] MEDS: ASPIRIN 81 MG TAB.CHEW PO SCH (08:09)
[2017-12-20] MEDS: MULTIVITAMINS,THERAPEUTIC TABLET PO SCH (08:09)
[2017-12-20] MEDS: RIVASTIGMINE TARTRATE 1.5 MG CAPSULE PO SCH ×2 (08:09→20:35)
[2017-12-20] MEDS: METOPROLOL TARTRATE 50 MG TABLET PO SCH ×2 (08:09→20:36)
[2017-12-20] MEDS: FUROSEMIDE 20 MG TABLET PO SCH (08:09)
[2017-12-20] MEDS: CLONAZEPAM 0.5 MG TABLET PO SCH ×2 (08:09→17:23)
[2017-12-20] MEDS: HYDROCODONE/APAP 10-325 MG TABLET PO PRN (09:28)
[2017-12-20] MEDS: NITROGLYCERIN OINT 1 GM PACKET TP PRN ×3 (15:30→17:10)
[2017-12-20] MEDS: LORAZEPAM 1 MG TABLET PO PRN (15:30)
[2017-12-20 16:10] VITALS: BP 171/70
--- NOTE | 2017-12-20 17:10 | NUR ---
GPS: Nursing Notes: Nitro-Bid Oint. Patch: Patient took her Nitro-Bid patch off her chest when given the the first time, B/P=171/88, when rechecking her B/P=207/99, her Nitro-Bid patch was not on her chest, staff placed another Nitro-Bid ointment patch on her back and will recheck B/P again, continue with treatment plan.
[2017-12-20 18:10] VITALS: BP 142/57
--- NOTE | 2017-12-20 18:10 | NUR ---
GPS: Nursing Notes: Recheck B/P: Patient rechecked B/P=142/57, Nitro-Bid ointment patch continue to be in place, on her back, continue to monitor V/S, continue with treatment plan.
[2017-12-20 19:42] VITALS: BP 113/80
[2017-12-20] MEDS: INSULIN GLARGINE,HUM 300 UNITS/3 ML CARTRIDGE SQ SCH (20:44)
--- NOTE | 2017-12-20 23:00 | NUR ---
Patient's BP was low. 95/62 HR 59. HELP 2200 BP meds. Will closely monitor.
[2017-12-21] MEDS: TOBRAMYCIN/DEXAMETH OPHT DROP 2.5 ML BOTTLE EACHEYE SCH ×5 (00:47→23:54)
[2017-12-21] MEDS: hydrALAZINE HCL 25 MG TABLET PO SCH ×3 (05:48→22:00)
[2017-12-21] MEDS: CLONIDINE HCL 0.2 MG TABLET PO SCH ×3 (05:49→22:00)
[2017-12-21] MEDS: ACETAMINOPHEN 325 MG TABLET PO PRN (05:53)
[2017-12-21] MEDS: PANTOPRAZOLE SODIUM 40 MG TABLET.DR PO SCH (06:13)
[2017-12-21] MEDS: LEVOTHYROXINE SODIUM 75 MCG TABLET PO SCH (06:13)
[2017-12-21] MEDS: BLOOD SUGAR DIAGNOSTIC 1 EACH STRIP VI SCH ×4 (06:33→20:31)
--- NOTE | 2017-12-21 06:34 | NUR ---
Patient slept 9.5 hours. Med compliant. Cooperative. No behavioral issues. Urinating well. Safety maintained t/o shift. Room is kept clutter free. Bed is in low and locked position. All meds given as ordered. All needs met.
[2017-12-21 07:48] VITALS: BP 123/60
[2017-12-21] MEDS: ARIPIPRAZOLE 10 MG TABLET PO SCH ×2 (09:21→20:11)
[2017-12-21] MEDS: CARBAMAZEPINE 200 MG TABLET PO SCH ×2 (09:21→20:11)
[2017-12-21] MEDS: ASPIRIN 81 MG TAB.CHEW PO SCH (09:21)
[2017-12-21] MEDS: VENLAFAXINE XR 37.5 MG CAP.SR.24H PO SCH (09:22)
[2017-12-21] MEDS: CLONAZEPAM 0.5 MG TABLET PO SCH ×2 (09:22→17:23)
[2017-12-21] MEDS: DILTIAZEM HCL CD 120 MG CAP.SR.24H PO SCH (09:22)
[2017-12-21] MEDS: RIVASTIGMINE TARTRATE 1.5 MG CAPSULE PO SCH ×2 (09:22→20:10)
[2017-12-21] MEDS: METOPROLOL TARTRATE 50 MG TABLET PO SCH ×2 (09:22→20:31)
[2017-12-21] MEDS: FUROSEMIDE 20 MG TABLET PO SCH (09:22)
[2017-12-21] MEDS: MULTIVITAMINS,THERAPEUTIC TABLET PO SCH (09:22)
[2017-12-21] MEDS: DOCUSATE SODIUM 100 MG CAPSULE PO SCH (09:22)
[2017-12-21] MEDS: ENALAPRIL 10 MG TABLET PO SCH ×2 (09:23→20:32)
[2017-12-21 16:26] VITALS: BP 138/83
[2017-12-21 19:45] VITALS: BP 132/77
[2017-12-21] MEDS: INSULIN GLARGINE,HUM 300 UNITS/3 ML CARTRIDGE SQ SCH (20:35)
[2017-12-21] MEDS: INSULIN REGULAR, HUMAN 300 UNIT/3 ML VIAL SQ PRN (20:36)
[2017-12-22] MEDS: LEVOTHYROXINE SODIUM 75 MCG TABLET PO SCH (06:07)
[2017-12-22] MEDS: PANTOPRAZOLE SODIUM 40 MG TABLET.DR PO SCH (06:07)
[2017-12-22] MEDS: TOBRAMYCIN/DEXAMETH OPHT DROP 2.5 ML BOTTLE EACHEYE SCH ×3 (06:08→17:11)
[2017-12-22] MEDS: hydrALAZINE HCL 25 MG TABLET PO SCH ×3 (06:08→22:00)
[2017-12-22] MEDS: CLONIDINE HCL 0.2 MG TABLET PO SCH ×3 (06:08→22:00)
[2017-12-22] MEDS: BLOOD SUGAR DIAGNOSTIC 1 EACH STRIP VI SCH ×4 (06:31→21:30)
[2017-12-22 07:30] VITALS: BP 106/64
[2017-12-22] MEDS: ARIPIPRAZOLE 10 MG TABLET PO SCH ×2 (08:58→21:13)
[2017-12-22] MEDS: DOCUSATE SODIUM 100 MG CAPSULE PO SCH (08:58)
[2017-12-22] MEDS: CARBAMAZEPINE 200 MG TABLET PO SCH ×2 (08:58→21:15)
[2017-12-22] MEDS: FUROSEMIDE 20 MG TABLET PO SCH (08:58)
[2017-12-22] MEDS: VENLAFAXINE XR 37.5 MG CAP.SR.24H PO SCH (08:58)
[2017-12-22] MEDS: ASPIRIN 81 MG TAB.CHEW PO SCH (08:59)
[2017-12-22] MEDS: DILTIAZEM HCL CD 120 MG CAP.SR.24H PO SCH (08:59)
[2017-12-22] MEDS: CLONAZEPAM 0.5 MG TABLET PO SCH ×2 (08:59→16:52)
[2017-12-22] MEDS: ENALAPRIL 10 MG TABLET PO SCH ×2 (08:59→21:00)
[2017-12-22] MEDS: MULTIVITAMINS,THERAPEUTIC TABLET PO SCH (08:59)
[2017-12-22] MEDS: RIVASTIGMINE TARTRATE 1.5 MG CAPSULE PO SCH ×2 (08:59→21:13)
[2017-12-22] MEDS: METOPROLOL TARTRATE 50 MG TABLET PO SCH ×2 (09:00→21:00)
[2017-12-22] MEDS: HYDROCODONE/APAP 10-325 MG TABLET PO PRN (13:03)
[2017-12-22 15:22] VITALS: BP 139/85
[2017-12-22] MEDS: INSULIN REGULAR, HUMAN 300 UNIT/3 ML VIAL SQ PRN (16:51)
[2017-12-22 20:01] VITALS: BP 104/60
[2017-12-22] MEDS: INSULIN GLARGINE,HUM 300 UNITS/3 ML CARTRIDGE SQ SCH (21:00)
--- NOTE | 2017-12-22 22:30 | NUR ---
received to care, lying in bed, pleasant upon approach. b/p meds were held, due to low b/p. 104/60. all other meds were given. as of 2229, she appears to be asleep, in bed. no distress noted. will continue to monitor closely.
[2017-12-23] MEDS: TEMAZEPAM 7.5 MG CAPSULE PO PRN (00:55)
[2017-12-23] MEDS: TOBRAMYCIN/DEXAMETH OPHT DROP 2.5 ML BOTTLE EACHEYE SCH ×5 (00:55→17:10)
--- NOTE | 2017-12-23 00:55 | NUR ---
PRN restoril given for insomnia
--- NOTE | 2017-12-23 01:58 | NUR ---
appears to be asleep. no distress noted.
--- NOTE | 2017-12-23 03:12 | NUR ---
pt is now awake, and restless. ambulating in hallway, restless, unsteady gait, difficult to redirect. placed in thanh chair at nurses station, for safety.
[2017-12-23] MEDS: LORAZEPAM 1 MG TABLET PO PRN ×2 (04:43→14:37)
--- NOTE | 2017-12-23 04:43 | NUR ---
remains awake, and restless. talking to self. appears distracted by internal stimuli. PRN ativan given, for anxiety.
[2017-12-23] MEDS: CLONIDINE HCL 0.2 MG TABLET PO SCH ×3 (05:35→22:00)
[2017-12-23] MEDS: hydrALAZINE HCL 25 MG TABLET PO SCH ×3 (05:35→22:00)
[2017-12-23] MEDS: PANTOPRAZOLE SODIUM 40 MG TABLET.DR PO SCH (06:05)
[2017-12-23] MEDS: LEVOTHYROXINE SODIUM 75 MCG TABLET PO SCH (06:05)
[2017-12-23] MEDS: BLOOD SUGAR DIAGNOSTIC 1 EACH STRIP VI SCH ×4 (06:06→20:38)
[2017-12-23 06:51] VITALS: BP 142/58
--- NOTE | 2017-12-23 06:51 | NUR ---
slept 2.5 hours. remains awake. assisted with am care. remains nup in thanh chair for safety. no distress noted.
--- NOTE | 2017-12-23 06:56 | NUR ---
remains hyperverbal. difficult to redirect.
[2017-12-23 07:30] VITALS: BP 143/78
[2017-12-23] MEDS: INSULIN REGULAR, HUMAN 300 UNIT/3 ML VIAL SQ PRN ×3 (07:57→20:44)
[2017-12-23] MEDS: ASPIRIN 81 MG TAB.CHEW PO SCH (09:15)
[2017-12-23] MEDS: MULTIVITAMINS,THERAPEUTIC TABLET PO SCH (09:16)
[2017-12-23] MEDS: VENLAFAXINE XR 37.5 MG CAP.SR.24H PO SCH (09:16)
[2017-12-23] MEDS: FUROSEMIDE 20 MG TABLET PO SCH (09:16)
[2017-12-23] MEDS: CARBAMAZEPINE 200 MG TABLET PO SCH ×2 (09:16→20:03)
[2017-12-23] MEDS: CLONAZEPAM 0.5 MG TABLET PO SCH ×2 (09:16→16:42)
[2017-12-23] MEDS: ARIPIPRAZOLE 10 MG TABLET PO SCH ×2 (09:16→20:02)
[2017-12-23] MEDS: RIVASTIGMINE TARTRATE 1.5 MG CAPSULE PO SCH ×2 (09:16→20:02)
[2017-12-23] MEDS: DOCUSATE SODIUM 100 MG CAPSULE PO SCH (09:16)
[2017-12-23] MEDS: ENALAPRIL 10 MG TABLET PO SCH ×2 (09:17→20:03)
[2017-12-23] MEDS: DILTIAZEM HCL CD 120 MG CAP.SR.24H PO SCH (09:17)
[2017-12-23] MEDS: METOPROLOL TARTRATE 50 MG TABLET PO SCH ×2 (09:18→20:02)
[2017-12-23] MEDS: HYDROCODONE/APAP 10-325 MG TABLET PO PRN ×2 (10:59→21:58)
[2017-12-23] MEDS: ACETAMINOPHEN 325 MG TABLET PO PRN (14:38)
[2017-12-23] MEDS: NITROGLYCERIN OINT 1 GM PACKET TP PRN (14:38)
[2017-12-23 16:34] VITALS: BP 161/77
[2017-12-23 16:41] VITALS: BP 161/77
[2017-12-23 20:18] VITALS: BP 136/68
[2017-12-23] MEDS: INSULIN GLARGINE,HUM 300 UNITS/3 ML CARTRIDGE SQ SCH (20:39)
--- NOTE | 2017-12-23 22:00 | NUR ---
received to care, up in thanh chair, talking to self, but, pleasant upon approach. compliant wioth medications and staff direction. ZINA acevedo sgiven at 2157, for lower back pain 03/27. as of 2229, she appears to be asleep, in bed. no distress noted. will continue to monitor closely.
[2017-12-24] MEDS: hydrALAZINE HCL 25 MG TABLET PO SCH ×2 (05:34→13:56)
[2017-12-24] MEDS: CLONIDINE HCL 0.2 MG TABLET PO SCH ×2 (05:34→13:57)
--- NOTE | 2017-12-24 06:00 | NUR ---
slept 8.5 hours total. continues to sleep. no distress noted.
[2017-12-24] MEDS: TOBRAMYCIN/DEXAMETH OPHT DROP 2.5 ML BOTTLE EACHEYE SCH ×3 (06:09→13:55)
[2017-12-24] MEDS: BLOOD SUGAR DIAGNOSTIC 1 EACH STRIP VI SCH ×2 (06:09→11:30)
[2017-12-24] MEDS: PANTOPRAZOLE SODIUM 40 MG TABLET.DR PO SCH (06:09)
[2017-12-24] MEDS: LEVOTHYROXINE SODIUM 75 MCG TABLET PO SCH (06:09)
[2017-12-24 06:35] VITALS: BP 148/89
[2017-12-24 08:20] VITALS: BP 182/87
[2017-12-24] MEDS: FUROSEMIDE 20 MG TABLET PO SCH (09:00)
[2017-12-24] MEDS: VENLAFAXINE XR 37.5 MG CAP.SR.24H PO SCH (09:00)
[2017-12-24] MEDS: MULTIVITAMINS,THERAPEUTIC TABLET PO SCH (09:00)
[2017-12-24] MEDS: DOCUSATE SODIUM 100 MG CAPSULE PO SCH (09:44)
[2017-12-24] MEDS: ENALAPRIL 10 MG TABLET PO SCH (09:45)
[2017-12-24] MEDS: CLONAZEPAM 0.5 MG TABLET PO SCH (09:46)
[2017-12-24] MEDS: CARBAMAZEPINE 200 MG TABLET PO SCH (09:47)
[2017-12-24] MEDS: ARIPIPRAZOLE 10 MG TABLET PO SCH (09:47)
[2017-12-24] MEDS: DILTIAZEM HCL CD 120 MG CAP.SR.24H PO SCH (09:48)
[2017-12-24] MEDS: ASPIRIN 81 MG TAB.CHEW PO SCH (09:48)
[2017-12-24] MEDS: METOPROLOL TARTRATE 50 MG TABLET PO SCH (09:49)
--- NOTE | 2017-12-24 10:08 | NUR ---
DC Note: Patient will be discharged home with family [[address] [place] [address]] via private transportation. SW spoke with patient's sister Meghan [[phone]] who stated she will berry picker patient around 1pm. Patient is aware and agreeable to discharge plans. Patient will follow up with her laser beam cutter Dr. Roe [[address] [place] [address]; ]. Patient does not currently have an outpatient psychiatrist. Patient was provided referrals for outpatient psychiatrists including: Dr. Romo [[phone]], Dr. Wilson [[phone]], and Dr. Gray [[phone]]. Patient was provided with additional outpatient mental health resources to [facility] , Edie Lemus , and the National Suicide Prevention Lifeline .
[2017-12-24] MEDS: RIVASTIGMINE TARTRATE 1.5 MG CAPSULE PO SCH (11:35)
[2017-12-24 12:01] VITALS: BP 105/71
[2017-12-24 13:57] VITALS: BP 105/71
--- NOTE | 2017-12-24 15:21 | NUR ---
PATIENT DISCHARGED HOME WITH SISTER IN NO ACUTE DISTRESS OR C/O PAIN , AWAKE MORE ALERT VITAL SIGNS B/P 123/71 AND BLOOD SUGAR 167. 100% o2 saturation .patient left with all belongings and follow up plans and perscriptions via wheel chair to lobby and sister at her side
[2018-01-13] MEDS ORDERED: METF500T6 PO (01:47)
== END 2017-12-24 15:23 | disposition home or self-care (01) | DRG 885 ==
LOC: ER 14:09 → GPS 18:42
PROVIDERS: ADMIT Psychiatry & Neurology Psychiatry; ATTEND Internal Medicine
DX: F31.64 Bipolar disorder, current episode mixed, severe, with psychotic features (principal); I11.0 Hypertensive heart disease with heart failure; E11.65 Type 2 diabetes mellitus with hyperglycemia; D68.59 Other primary thrombophilia; I50.32 Chronic diastolic (congestive) heart failure; G90.8 Other disorders of autonomic nervous system; I49.5 Sick sinus syndrome; Z91.19 Patient's noncompliance with other medical treatment and regimen; F41.9 Anxiety disorder, unspecified; Z95.0 Presence of cardiac pacemaker; Z98.84 Bariatric surgery status; G89.29 Other chronic pain; Z79.4 Long term (current) use of insulin; Z79.899 Other long term (current) drug therapy; Z87.440 Personal history of urinary (tract) infections; E03.9 Hypothyroidism, unspecified; F17.210 Nicotine dependence, cigarettes, uncomplicated; K43.9 Ventral hernia without obstruction or gangrene; R32 Unspecified urinary incontinence; Z79.82 Long term (current) use of aspirin; R29.6 Repeated falls
CPT/HCPCS: 36415; 70030-TC; 71045; 80307; 84443; 85025; 93005; 97112; 97116; 97530; A4663; G0480; J1815; J7030

== ENCOUNTER 2018-01-12 21:59 | Inpatient (IN) | payer MEDICARE, BC ==
[~2018-01-12] VITALS: Ht 170.2 cm; Wt 78.0 kg
[~2018-01-12 21:59] MED LIST changes: -CARB200T PO; -DONE5TAB7 PO; -TRAZ-147 PO
[2018-01-12] MEDS ORDERED: INSULIN REGULAR, HUMAN 1,000 UNITS/10 ML VIAL IV ONE (22:30)
[2018-01-12] MEDS ORDERED: IV NORMAL SALINE 1000 ML BAG IV ONE (22:30)
[2018-01-12] MEDS ORDERED: INSULIN REGULAR, HUMAN 300 UNIT/3 ML VIAL ONE (22:44)
[2018-01-12 22:55] LABS: BASOPHILS % (AUTO) 0.4 % (0.0-2.0); EOSINOPHILS # (AUTO) 0.2 K/uL (0.0-0.7); EOSINOPHILS % (AUTO) 3.2 % (0.0-7.0); HEMATOCRIT 35.3 % (31.2-41.9); HEMOGLOBIN 12.1 g/dL (10.9-14.3); LYMPHOCYTES # (AUTO) 0.9 K/uL (20.0-40.0); LYMPHOCYTES % (AUTO) 16.6 % (20.5-51.5); MEAN CORPUSCULAR HEMOGLOBIN 32.1 uug (24.7-32.8); MEAN CORPUSCULAR HGB CONC 34 g/dL (32.3-35.6); MEAN CORPUSCULAR VOLUME 93.7 fL (75.5-95.3); MONOCYTES # (AUTO) 0.5 K/uL (2.0-10.0); MONOCYTES % (AUTO) 10.2 % (0.0-11.0); NEUTROPHILS # (AUTO) 3.7 K/uL (1.8-8.9); NEUTROPHILS % (AUTO) 69.6 % (38.5-71.5); PLATELET COUNT (AUTO) 248 K/uL (179-408); RED BLOOD CELL COUNT(AUTO) 3.77 MIL/uL (3.63-4.92); WHITE BLOOD COUNT (AUTO) 5.3 K/uL (3.8-11.8)
[2018-01-12 23:12] LABS: ALANINE AMINOTRANSFERASE 87 U/L (14-59); ALKALINE PHOSPHATASE 164 U/L (50-136); ASPARTATE AMINOTRANSFERASE 95 U/L (15-37); BILIRUBIN,DIRECT 0.1 mg/dL (0.0-0.2); BILIRUBIN,TOTAL 0.3 mg/dL (0.2-1.0); CARBON DIOXIDE 29 mmol/L (21-32); CHLORIDE 98 mmol/L (98-107); CREATININE 0.9 mg/dL (0.6-1.3); POTASSIUM 4.5 mmol/L (3.5-5.1); TOTAL PROTEIN, SERUM 7.1 g/dL (6.4-8.2); UREA NITROGEN, BLOOD 28 mg/dL (7-18)
[2018-01-12 23:13] LABS: GLUCOSE 361 mg/dL (74-106)
[2018-01-13] MEDS ORDERED: AZITHROMYCIN IV 500 MG in IV DEXTROSE 5% 250 ML IV ONE ×2
[2018-01-13] MEDS ORDERED: CEFTRIAXONE 1 G in IV DEXTROSE 5% 50 ML IV ONE ×2
[2018-01-13 00:21] LABS: *BILIRUBIN,URIN NEGATIVE (NEGATIVE); *BLOOD, URINE NEGATIVE (NEGATIVE); *CLARITY,URINE CLEAR (CLEAR); *COLOR,URINE YELLOW (YELLOW); *KETONES,URINE NEGATIVE (NEGATIVE); *PROTEIN,URINE TRACE (NEGATIVE); *UROBILINOGEN,URINE 0.2 E.U./dl (NORMAL); LEUKOCYTE ESTERASE ,URINE NEGATIVE (NEGATIVE); NITRITE, URINE NEGATIVE (NEGATIVE)
[2018-01-13 00:22] LABS: UGLUCOSE 2+ (NEGATIVE)
[2018-01-13] MEDS ORDERED: CEFTRIAXONE 1 G VIAL ONE (00:27)
[2018-01-13 00:29] LABS: BACTERIA,URINE NONE SEEN /HPF (NONE SEEN); RBC,URINE 0-3 /HPF (0-3); SQUAMOUS EPITHELIAL CELL,UR FEW /HPF (NONE SEEN)
[2018-01-13] MEDS ORDERED: AZITHROMYCIN 500 MG VIAL IV ONE (00:42)
[2018-01-13] MEDS ORDERED: ARIP15TA3 PO (00:58)
[2018-01-13] MEDS ORDERED: VENL37.591 PO (00:58)
[2018-01-13] MEDS ORDERED: HYDR-4077 PO (00:58)
[2018-01-13] MEDS ORDERED: CARB200T PO ×2 (00:58)
[2018-01-13] MEDS ORDERED: PANT40TA4 PO (00:58)
[2018-01-13] MEDS ORDERED: METF500T4 PO (01:47)
[2018-01-13 02:15] VITALS: BP 126/68
[2018-01-13] MEDS ORDERED: MAGNESIUM HYDROXIDE 30 ML LIQUID UDC PO PRN (02:15)
[2018-01-13] MEDS ORDERED: ONDANSETRON 4 MG/2 ML VIAL IV PRN (02:15)
[2018-01-13] MEDS ORDERED: ZOLPIDEM 5 MG TABLET PO PRN (02:15)
[2018-01-13] MEDS ORDERED: DEXTROSE 50% 50 ML DISP.SYRIN IV PRN (02:15)
[2018-01-13] MEDS ORDERED: Z GUARD REMEDY PASTE 57 GM TUBE TOP PRN (02:15)
[2018-01-13] MEDS ORDERED: ACETAMINOPHEN 325 MG TABLET PO PRN (02:15)
[2018-01-13] MEDS: FUROSEMIDE 40 MG/4 ML VIAL IV SCH ×2 (03:21→08:19)
[2018-01-13 04:00] VITALS: BP 147/78
[2018-01-13] MEDS: LEVOTHYROXINE SODIUM 75 MCG TABLET PO SCH (07:10)
[2018-01-13] MEDS: BLOOD SUGAR DIAGNOSTIC 1 EACH STRIP VI SCH ×4 (07:10→21:49)
[2018-01-13] MEDS: PANTOPRAZOLE SODIUM 40 MG TABLET.DR PO SCH (07:11)
[2018-01-13] MEDS: CLONIDINE HCL 0.2 MG TABLET PO SCH ×3 (07:11→21:44)
[2018-01-13] MEDS: hydrALAZINE HCL 50 MG TABLET PO SCH ×3 (07:12→21:45)
[2018-01-13] MEDS: INSULIN REGULAR, HUMAN 300 UNIT/3 ML VIAL SQ PRN ×2 (07:47→12:03)
[2018-01-13] MEDS: CARBAMAZEPINE 200 MG TABLET PO SCH ×2 (08:05→21:44)
[2018-01-13] MEDS: VENLAFAXINE XR 37.5 MG CAP.SR.24H PO SCH (08:05)
[2018-01-13] MEDS: ASPIRIN 81 MG TAB.CHEW PO SCH (08:05)
[2018-01-13] MEDS: MULTIVITAMINS,THERAPEUTIC TABLET PO SCH (08:05)
[2018-01-13] MEDS: ENOXAPARIN SODIUM 40 MG/0.4 ML DISP.SYRIN SQ SCH (08:06)
[2018-01-13] MEDS: ARIPIPRAZOLE 10 MG TABLET PO SCH (08:06)
[2018-01-13] MEDS: ENALAPRIL 10 MG TABLET PO SCH ×2 (09:00→16:28)
[2018-01-13] MEDS: DILTIAZEM HCL CD 120 MG CAP.SR.24H PO SCH (09:00)
[2018-01-13] MEDS: METOPROLOL TARTRATE 50 MG TABLET PO SCH ×2 (09:00→16:28)
[2018-01-13 11:12] VITALS: BP 96/55
[2018-01-13 15:18] VITALS: BP 129/72
[2018-01-13 19:00] VITALS: BP 163/83
[2018-01-13] MEDS: INSULIN REGULAR, HUMAN 300 UNITS/3 ML VIAL SQ PRN (21:49)
[2018-01-14] MEDS ORDERED: CEFTRIAXONE 1 G in IV DEXTROSE 5% 50 ML IV SCH ×2
[2018-01-14] MEDS ORDERED: AZITHROMYCIN IV 500 MG in IV DEXTROSE 5% 250 ML IV SCH (01:00)
[2018-01-14 04:00] VITALS: BP 132/63
[2018-01-14] MEDS: CLONIDINE HCL 0.2 MG TABLET PO SCH ×3 (06:19→22:19)
[2018-01-14] MEDS: PANTOPRAZOLE SODIUM 40 MG TABLET.DR PO SCH (06:19)
[2018-01-14] MEDS: LEVOTHYROXINE SODIUM 75 MCG TABLET PO SCH (06:19)
[2018-01-14] MEDS: hydrALAZINE HCL 50 MG TABLET PO SCH ×3 (06:19→22:00)
[2018-01-14] MEDS: BLOOD SUGAR DIAGNOSTIC 1 EACH STRIP VI SCH ×4 (06:25→20:35)
[2018-01-14 06:46] LABS: BASOPHILS % (AUTO) 0.6 % (0.0-2.0); EOSINOPHILS # (AUTO) 0.2 K/uL (0.0-0.7); EOSINOPHILS % (AUTO) 4.5 % (0.0-7.0); LYMPHOCYTES # (AUTO) 1.2 K/uL (20.0-40.0); LYMPHOCYTES % (AUTO) 26.2 % (20.5-51.5); MEAN CORPUSCULAR HGB CONC 34 g/dL (32.3-35.6); MEAN CORPUSCULAR VOLUME 93.2 fL (75.5-95.3); MONOCYTES # (AUTO) 0.4 K/uL (2.0-10.0); MONOCYTES % (AUTO) 8.8 % (0.0-11.0); NEUTROPHILS # (AUTO) 2.8 K/uL (1.8-8.9); NEUTROPHILS % (AUTO) 59.9 % (38.5-71.5); PLATELET COUNT (AUTO) 224 K/uL (179-408); RED BLOOD CELL COUNT(AUTO) 3.75 MIL/uL (3.63-4.92); WHITE BLOOD COUNT (AUTO) 4.6 K/uL (3.8-11.8)
[2018-01-14 06:47] LABS: CARBON DIOXIDE 29 mmol/L (21-32); CHLORIDE 100 mmol/L (98-107); CREATININE 0.8 mg/dL (0.6-1.3); GLUCOSE 128 mg/dL (74-106); MAGNESIUM 1.7 mg/dL (1.8-2.4); PHOSPHOROUS 4.1 mg/dL (2.5-4.9); POTASSIUM 3.9 mmol/L (3.5-5.1); UREA NITROGEN, BLOOD 23 mg/dL (7-18)
[2018-01-14] MEDS: INSULIN REGULAR, HUMAN 300 UNIT/3 ML VIAL SQ PRN ×3 (08:22→17:01)
[2018-01-14] MEDS: ENOXAPARIN SODIUM 40 MG/0.4 ML DISP.SYRIN SQ SCH (08:26)
[2018-01-14] MEDS: MULTIVITAMINS,THERAPEUTIC TABLET PO SCH (08:27)
[2018-01-14] MEDS: ASPIRIN 81 MG TAB.CHEW PO SCH (08:27)
[2018-01-14] MEDS: FUROSEMIDE 20 MG TABLET PO SCH (08:27)
[2018-01-14] MEDS: VENLAFAXINE XR 37.5 MG CAP.SR.24H PO SCH (08:27)
[2018-01-14] MEDS: ARIPIPRAZOLE 10 MG TABLET PO SCH (08:27)
[2018-01-14] MEDS: DILTIAZEM HCL CD 120 MG CAP.SR.24H PO SCH (08:28)
[2018-01-14] MEDS: CARBAMAZEPINE 200 MG TABLET PO SCH ×2 (08:29→20:36)
[2018-01-14] MEDS: ENALAPRIL 10 MG TABLET PO SCH ×3 (08:29→16:32)
[2018-01-14] MEDS: METOPROLOL TARTRATE 50 MG TABLET PO SCH ×2 (08:30→16:32)
[2018-01-14] MEDS ORDERED: MAGNESIUM SULFATE/D5W 100 ML IV SCH (11:00)
[2018-01-14 11:02] VITALS: BP 131/77
[2018-01-14] MEDS ORDERED: INSU100V7 SQ (11:47)
[2018-01-14] MEDS ORDERED: CLON1TAB PO (12:21)
[2018-01-14] MEDS ORDERED: HYDR-548 PO (12:23)
[2018-01-14] MEDS: HYDROCODONE/APAP 5-325MG TABLET PO PRN (15:10)
[2018-01-14 15:27] VITALS: BP 116/74
[2018-01-14 19:00] VITALS: BP 126/73
[2018-01-14] MEDS: INSULIN REGULAR, HUMAN 300 UNITS/3 ML VIAL SQ PRN (20:36)
[2018-01-14 22:00] VITALS: BP 133/62
[2018-01-15 04:00] VITALS: BP 140/68
[2018-01-15] MEDS: LEVOTHYROXINE SODIUM 75 MCG TABLET PO SCH (06:08)
[2018-01-15] MEDS: PANTOPRAZOLE SODIUM 40 MG TABLET.DR PO SCH (06:08)
[2018-01-15] MEDS: hydrALAZINE HCL 50 MG TABLET PO SCH ×3 (06:09→21:06)
[2018-01-15] MEDS: CLONIDINE HCL 0.2 MG TABLET PO SCH ×3 (06:09→21:53)
[2018-01-15 06:19] LABS: CARBON DIOXIDE 32 mmol/L (21-32); CHLORIDE 99 mmol/L (98-107); CREATININE 0.8 mg/dL (0.6-1.3); GLUCOSE 202 mg/dL (74-106); MAGNESIUM 1.7 mg/dL (1.8-2.4); POTASSIUM 4.2 mmol/L (3.5-5.1); UREA NITROGEN, BLOOD 25 mg/dL (7-18)
[2018-01-15] MEDS: BLOOD SUGAR DIAGNOSTIC 1 EACH STRIP VI SCH ×4 (06:32→21:14)
[2018-01-15] MEDS: INSULIN REGULAR, HUMAN 300 UNIT/3 ML VIAL SQ PRN ×2 (07:48→11:33)
[2018-01-15] MEDS: MULTIVITAMINS,THERAPEUTIC TABLET PO SCH (07:59)
[2018-01-15] MEDS: ASPIRIN 81 MG TAB.CHEW PO SCH (07:59)
[2018-01-15] MEDS: ENALAPRIL 10 MG TABLET PO SCH ×2 (07:59→16:28)
[2018-01-15] MEDS: FUROSEMIDE 20 MG TABLET PO SCH (08:00)
[2018-01-15] MEDS: VENLAFAXINE XR 37.5 MG CAP.SR.24H PO SCH (08:00)
[2018-01-15] MEDS: METOPROLOL TARTRATE 50 MG TABLET PO SCH ×2 (08:00→16:28)
[2018-01-15] MEDS: CARBAMAZEPINE 200 MG TABLET PO SCH ×2 (08:01→21:10)
[2018-01-15] MEDS: DILTIAZEM HCL CD 120 MG CAP.SR.24H PO SCH (08:01)
[2018-01-15] MEDS: ARIPIPRAZOLE 10 MG TABLET PO SCH (08:01)
[2018-01-15] MEDS: ENOXAPARIN SODIUM 40 MG/0.4 ML DISP.SYRIN SQ SCH (08:03)
[2018-01-15] MEDS: HYDROCODONE/APAP 5-325MG TABLET PO PRN (09:10)
[2018-01-15 11:11] VITALS: BP 115/54
[2018-01-15] MEDS: MAGNESIUM SULFATE/D5W 100 ML IV SCH ×2 (13:53→15:40)
[2018-01-15 15:10] VITALS: BP 125/61
[2018-01-15 19:00] VITALS: BP 115/70
[2018-01-15] MEDS: INSULIN REGULAR, HUMAN 300 UNITS/3 ML VIAL SQ PRN (21:14)
[2018-01-15] MEDS: CLONAZEPAM 1 MG TABLET PO PRN (21:50)
[2018-01-16 04:00] VITALS: BP 155/72
[2018-01-16] MEDS: PANTOPRAZOLE SODIUM 40 MG TABLET.DR PO SCH (06:04)
[2018-01-16] MEDS: CLONIDINE HCL 0.2 MG TABLET PO SCH ×2 (06:04→14:47)
[2018-01-16] MEDS: hydrALAZINE HCL 50 MG TABLET PO SCH ×2 (06:05→14:47)
[2018-01-16] MEDS: LEVOTHYROXINE SODIUM 75 MCG TABLET PO SCH (06:05)
[2018-01-16] MEDS: BLOOD SUGAR DIAGNOSTIC 1 EACH STRIP VI SCH ×3 (06:09→16:38)
[2018-01-16] MEDS: CLONAZEPAM 1 MG TABLET PO PRN (07:43)
[2018-01-16] MEDS: INSULIN REGULAR, HUMAN 300 UNIT/3 ML VIAL SQ PRN ×3 (07:45→16:50)
[2018-01-16] MEDS: MULTIVITAMINS,THERAPEUTIC TABLET PO SCH (08:12)
[2018-01-16] MEDS: CARBAMAZEPINE 200 MG TABLET PO SCH (08:12)
[2018-01-16] MEDS: ASPIRIN 81 MG TAB.CHEW PO SCH (08:12)
[2018-01-16] MEDS: VENLAFAXINE XR 37.5 MG CAP.SR.24H PO SCH (08:12)
[2018-01-16] MEDS: ENALAPRIL 10 MG TABLET PO SCH ×2 (08:12→16:40)
[2018-01-16] MEDS: FUROSEMIDE 20 MG TABLET PO SCH (08:12)
[2018-01-16] MEDS: METOPROLOL TARTRATE 50 MG TABLET PO SCH ×2 (08:13→16:40)
[2018-01-16] MEDS: ENOXAPARIN SODIUM 40 MG/0.4 ML DISP.SYRIN SQ SCH (08:14)
[2018-01-16] MEDS: ARIPIPRAZOLE 10 MG TABLET PO SCH (08:26)
[2018-01-16] MEDS: DILTIAZEM HCL CD 120 MG CAP.SR.24H PO SCH (08:27)
[2018-01-16 11:26] VITALS: BP 126/69
[2018-01-16 15:36] VITALS: BP 147/71
[2018-01-16 16:40] VITALS: BP 158/72
== END 2018-01-16 17:00 | DRG 637 ==
LOC: ER 22:01 → TELE 01-13 01:42 → MED 01-13 12:08
PROVIDERS: ADMIT Internal Medicine
DX: E11.65 Type 2 diabetes mellitus with hyperglycemia (principal); N17.0 Acute kidney failure with tubular necrosis; I50.33 Acute on chronic diastolic (congestive) heart failure; E44.0 Moderate protein-calorie malnutrition; I47.1 Supraventricular tachycardia; I11.0 Hypertensive heart disease with heart failure; I49.5 Sick sinus syndrome; Z95.0 Presence of cardiac pacemaker; Z79.4 Long term (current) use of insulin; Z98.84 Bariatric surgery status; F03.90 Unspecified dementia, unspecified severity, without behavioral disturbance, psychotic disturbance, mood disturbance, and anxiety; E66.9 Obesity, unspecified; Z68.27 Body mass index [BMI] 27.0-27.9, adult; Z71.3 Dietary counseling and surveillance; I70.0 Atherosclerosis of aorta; G89.29 Other chronic pain; I25.2 Old myocardial infarction; Z79.82 Long term (current) use of aspirin; Z79.899 Other long term (current) drug therapy; F17.210 Nicotine dependence, cigarettes, uncomplicated; E03.9 Hypothyroidism, unspecified; M54.9 Dorsalgia, unspecified; F31.9 Bipolar disorder, unspecified
CPT/HCPCS: 36415; 70030-TC; 71045; 83605; 83735; 84100; 84443; 85025; 85730; 87040; 87086; 93005; 93307; 97112; 97116; A4663; J0456; J0696; J1650; J1815; J1940; J3475; J7030; J7050; J7060

== ENCOUNTER 2018-01-16 17:39 | Inpatient (IN) | payer MEDICARE, BC ==
[~2018-01-16] VITALS: Ht 170.2 cm; Wt 79.4 kg
[~2018-01-16 17:39] MED LIST changes: +ARIP15TA3 PO; +CARB200T PO; +CLON1TAB PO; -DOCU100C36 PO; +HYDR-4077 PO; -INSU100V10 SQ; -INSU100V28 SQ; +INSU100V7 SQ; +METF500T6 PO; -NITR100C11 PO; -OMEP20CA10 PO; +PANT40TA4 PO; +VENL37.591 PO
[2018-01-16 18:00] VITALS: BP 145/70
[2018-01-16] MEDS ORDERED: DEXTROSE 50% 50 ML DISP.SYRIN IV PRN (19:45)
[2018-01-16 20:00] VITALS: BP 190/107
[2018-01-16] MEDS: ENALAPRIL 10 MG TABLET PO SCH (20:32)
[2018-01-16] MEDS: CARBAMAZEPINE 200 MG TABLET PO SCH (20:33)
[2018-01-16] MEDS: HYDROCODONE/APAP 10-325 MG TABLET PO PRN (20:33)
[2018-01-16] MEDS: CLONAZEPAM 1 MG TABLET PO PRN (20:33)
[2018-01-16] MEDS: BLOOD SUGAR DIAGNOSTIC 1 EACH STRIP VI SCH (20:34)
[2018-01-16] MEDS: INSULIN REGULAR, HUMAN 300 UNIT/3 ML VIAL SQ PRN (20:42)
[2018-01-16] MEDS: INSULIN GLARGINE,HUM 300 UNITS/3 ML CARTRIDGE SQ SCH (20:46)
[2018-01-16 21:30] VITALS: BP 176/65
[2018-01-16] MEDS: CLONIDINE HCL 0.2 MG TABLET PO SCH (21:44)
[2018-01-16] MEDS: hydrALAZINE HCL 50 MG TABLET PO SCH (21:44)
[2018-01-17] VITALS (8 sets, daily range): BP systolic 101–162; BP diastolic 55–91
[2018-01-17] MEDS: hydrALAZINE HCL 50 MG TABLET PO SCH ×3 (06:20→21:59)
[2018-01-17] MEDS: CLONIDINE HCL 0.2 MG TABLET PO SCH ×3 (06:20→22:57)
[2018-01-17] MEDS: LEVOTHYROXINE SODIUM 100 MCG TABLET PO SCH (06:20)
[2018-01-17] MEDS: BLOOD SUGAR DIAGNOSTIC 1 EACH STRIP VI SCH ×4 (06:35→20:05)
[2018-01-17] MEDS: INSULIN REGULAR, HUMAN 300 UNIT/3 ML VIAL SQ PRN ×2 (07:58→12:18)
[2018-01-17] MEDS: METFORMIN HCL 500 MG TABLET PO SCH ×2 (08:00→17:37)
[2018-01-17] MEDS: ARIPIPRAZOLE 5 MG TABLET PO SCH (08:32)
[2018-01-17] MEDS: ASPIRIN 81 MG TAB.CHEW PO SCH (08:33)
[2018-01-17] MEDS: FUROSEMIDE 20 MG TABLET PO SCH (08:33)
[2018-01-17] MEDS: MULTIVITAMINS,THERAPEUTIC TABLET PO SCH (08:33)
[2018-01-17] MEDS: PANTOPRAZOLE SODIUM 40 MG TABLET.DR PO SCH (08:34)
[2018-01-17] MEDS: CARBAMAZEPINE 200 MG TABLET PO SCH ×2 (08:34→20:01)
[2018-01-17] MEDS: HYDROCODONE/APAP 10-325 MG TABLET PO PRN (08:40)
[2018-01-17] MEDS: DILTIAZEM HCL CD 120 MG CAP.SR.24H PO SCH (09:00)
[2018-01-17] MEDS ORDERED: Medication Not On Formulary EA (Enalapril Maleate (Vasotec) 20 MG) PO SCH (09:00)
[2018-01-17] MEDS: ENALAPRIL 10 MG TABLET PO SCH ×2 (09:00→21:01)
[2018-01-17] MEDS ORDERED: Medication Not On Formulary EA (Aripiprazole (Abilify) 15 MG) PO SCH (09:00)
[2018-01-17] MEDS: METOPROLOL TARTRATE 50 MG TABLET PO SCH ×2 (09:00→20:01)
[2018-01-17] MEDS ORDERED: Medication Not On Formulary EA (Multivitamins (Multivitamin) 1 TAB) PO SCH (09:00)
[2018-01-17] MEDS: VENLAFAXINE XR 37.5 MG CAP.SR.24H PO SCH (12:17)
[2018-01-17] MEDS: INSULIN GLARGINE,HUM 300 UNITS/3 ML CARTRIDGE SQ SCH (20:43)
[2018-01-17] MEDS: INSULIN REGULAR, HUMAN 300 UNITS/3 ML VIAL SQ PRN (20:44)
[2018-01-18 05:06] VITALS: BP 101/60
[2018-01-18] MEDS: hydrALAZINE HCL 50 MG TABLET PO SCH ×3 (06:00→23:30)
[2018-01-18] MEDS: CLONIDINE HCL 0.2 MG TABLET PO SCH ×3 (06:03→22:52)
[2018-01-18] MEDS: LEVOTHYROXINE SODIUM 100 MCG TABLET PO SCH (06:04)
[2018-01-18 06:11] VITALS: BP 128/80
[2018-01-18] MEDS: BLOOD SUGAR DIAGNOSTIC 1 EACH STRIP VI SCH ×4 (06:43→20:42)
[2018-01-18 08:00] VITALS: BP 129/61
[2018-01-18] MEDS: METFORMIN HCL 500 MG TABLET PO SCH ×2 (08:37→19:34)
[2018-01-18] MEDS: VENLAFAXINE XR 37.5 MG CAP.SR.24H PO SCH (08:37)
[2018-01-18] MEDS: MULTIVITAMINS,THERAPEUTIC TABLET PO SCH (08:37)
[2018-01-18] MEDS: ASPIRIN 81 MG TAB.CHEW PO SCH (08:37)
[2018-01-18] MEDS: PANTOPRAZOLE SODIUM 40 MG TABLET.DR PO SCH (08:38)
[2018-01-18] MEDS: ARIPIPRAZOLE 5 MG TABLET PO SCH (08:39)
[2018-01-18] MEDS: FUROSEMIDE 20 MG TABLET PO SCH (08:41)
[2018-01-18] MEDS: ENALAPRIL 10 MG TABLET PO SCH ×2 (08:42→20:40)
[2018-01-18] MEDS: DILTIAZEM HCL CD 120 MG CAP.SR.24H PO SCH (08:42)
[2018-01-18] MEDS: CARBAMAZEPINE 200 MG TABLET PO SCH ×2 (08:42→20:31)
[2018-01-18] MEDS: METOPROLOL TARTRATE 50 MG TABLET PO SCH ×2 (09:00→20:39)
[2018-01-18] MEDS: INSULIN REGULAR, HUMAN 300 UNIT/3 ML VIAL SQ PRN (14:56)
[2018-01-18 16:00] VITALS: BP 159/71
[2018-01-18 19:00] VITALS: BP 122/47
[2018-01-18 20:00] VITALS: BP 109/45
[2018-01-18] MEDS: INSULIN GLARGINE,HUM 300 UNITS/3 ML CARTRIDGE SQ SCH (20:36)
[2018-01-18] MEDS: INSULIN REGULAR, HUMAN 300 UNITS/3 ML VIAL SQ PRN (20:37)
[2018-01-19] VITALS (8 sets, daily range): BP systolic 97–183; BP diastolic 44–76
[2018-01-19] MEDS: LEVOTHYROXINE SODIUM 100 MCG TABLET PO SCH (06:42)
[2018-01-19] MEDS: CLONIDINE HCL 0.2 MG TABLET PO SCH ×3 (06:43→22:23)
[2018-01-19] MEDS: BLOOD SUGAR DIAGNOSTIC 1 EACH STRIP VI SCH ×4 (06:44→20:48)
[2018-01-19] MEDS: hydrALAZINE HCL 50 MG TABLET PO SCH ×3 (07:06→22:22)
[2018-01-19] MEDS: METFORMIN HCL 500 MG TABLET PO SCH ×2 (08:44→17:02)
[2018-01-19] MEDS: VENLAFAXINE XR 37.5 MG CAP.SR.24H PO SCH (08:44)
[2018-01-19] MEDS: ASPIRIN 81 MG TAB.CHEW PO SCH (08:44)
[2018-01-19] MEDS: PANTOPRAZOLE SODIUM 40 MG TABLET.DR PO SCH (08:44)
[2018-01-19] MEDS: MULTIVITAMINS,THERAPEUTIC TABLET PO SCH (08:45)
[2018-01-19] MEDS: CARBAMAZEPINE 200 MG TABLET PO SCH ×2 (08:45→20:46)
[2018-01-19] MEDS: ARIPIPRAZOLE 5 MG TABLET PO SCH (08:46)
[2018-01-19] MEDS: FUROSEMIDE 20 MG TABLET PO SCH (10:19)
[2018-01-19] MEDS: DILTIAZEM HCL CD 120 MG CAP.SR.24H PO SCH (10:20)
[2018-01-19] MEDS: METOPROLOL TARTRATE 50 MG TABLET PO SCH ×2 (10:21→20:47)
[2018-01-19] MEDS: ENALAPRIL 10 MG TABLET PO SCH ×2 (10:22→20:47)
[2018-01-19] MEDS: INSULIN REGULAR, HUMAN 300 UNIT/3 ML VIAL SQ PRN ×2 (12:16→17:10)
[2018-01-19] MEDS: SENNOSIDES 1 TABLET PO SCH ×2 (12:18→20:47)
[2018-01-19] MEDS: INSULIN REGULAR, HUMAN 300 UNITS/3 ML VIAL SQ PRN (20:58)
[2018-01-19] MEDS: INSULIN GLARGINE,HUM 300 UNITS/3 ML CARTRIDGE SQ SCH (20:59)
[2018-01-20 05:00] VITALS: BP 148/88
[2018-01-20] MEDS: BLOOD SUGAR DIAGNOSTIC 1 EACH STRIP VI SCH ×4 (06:40→21:59)
[2018-01-20] MEDS: LEVOTHYROXINE SODIUM 100 MCG TABLET PO SCH (06:41)
[2018-01-20] MEDS: hydrALAZINE HCL 50 MG TABLET PO SCH ×3 (06:41→21:54)
[2018-01-20] MEDS: CLONIDINE HCL 0.2 MG TABLET PO SCH ×3 (06:41→21:54)
[2018-01-20 08:29] VITALS: BP 104/48
[2018-01-20] MEDS: DILTIAZEM HCL CD 120 MG CAP.SR.24H PO SCH (09:00)
[2018-01-20] MEDS: METOPROLOL TARTRATE 50 MG TABLET PO SCH ×2 (09:00→21:53)
[2018-01-20] MEDS: ENALAPRIL 10 MG TABLET PO SCH ×2 (09:00→21:52)
[2018-01-20] MEDS: MULTIVITAMINS,THERAPEUTIC TABLET PO SCH (09:34)
[2018-01-20] MEDS: ASPIRIN 81 MG TAB.CHEW PO SCH (09:34)
[2018-01-20] MEDS: VENLAFAXINE XR 37.5 MG CAP.SR.24H PO SCH (09:34)
[2018-01-20] MEDS: ARIPIPRAZOLE 5 MG TABLET PO SCH (09:34)
[2018-01-20] MEDS: PANTOPRAZOLE SODIUM 40 MG TABLET.DR PO SCH (09:35)
[2018-01-20] MEDS: METFORMIN HCL 500 MG TABLET PO SCH ×2 (09:35→17:52)
[2018-01-20] MEDS: CARBAMAZEPINE 200 MG TABLET PO SCH ×2 (09:35→21:52)
[2018-01-20] MEDS: FUROSEMIDE 20 MG TABLET PO SCH (09:36)
[2018-01-20] MEDS: HYDROCODONE/APAP 10-325 MG TABLET PO PRN (10:22)
[2018-01-20] MEDS: INSULIN REGULAR, HUMAN 300 UNIT/3 ML VIAL SQ PRN (13:01)
[2018-01-20 20:32] VITALS: BP 176/86
[2018-01-20] MEDS: SENNOSIDES 1 TABLET PO SCH (21:53)
[2018-01-20] MEDS: INSULIN REGULAR, HUMAN 300 UNITS/3 ML VIAL SQ PRN (22:02)
[2018-01-20] MEDS: INSULIN GLARGINE,HUM 300 UNITS/3 ML CARTRIDGE SQ SCH (22:04)
[2018-01-21] MEDS: CLONIDINE HCL 0.2 MG TABLET PO SCH ×3 (06:34→22:19)
[2018-01-21] MEDS: LEVOTHYROXINE SODIUM 100 MCG TABLET PO SCH (06:35)
[2018-01-21] MEDS: hydrALAZINE HCL 50 MG TABLET PO SCH ×3 (06:35→22:19)
[2018-01-21] MEDS: BLOOD SUGAR DIAGNOSTIC 1 EACH STRIP VI SCH ×4 (06:38→21:24)
[2018-01-21 08:36] LABS: BASOPHILS % (AUTO) 0.7 % (0.0-2.0); EOSINOPHILS # (AUTO) 0.3 K/uL (0.0-0.7); EOSINOPHILS % (AUTO) 5.9 % (0.0-7.0); HEMATOCRIT 31.8 % (31.2-41.9); HEMOGLOBIN 11.4 g/dL (10.9-14.3); LYMPHOCYTES % (AUTO) 21.1 % (20.5-51.5); MEAN CORPUSCULAR HEMOGLOBIN 32.8 uug (24.7-32.8); MEAN CORPUSCULAR HGB CONC 36 g/dL (32.3-35.6); MEAN CORPUSCULAR VOLUME 91.8 fL (75.5-95.3); MONOCYTES # (AUTO) 0.4 K/uL (2.0-10.0); MONOCYTES % (AUTO) 8.9 % (0.0-11.0); NEUTROPHILS # (AUTO) 2.9 K/uL (1.8-8.9); NEUTROPHILS % (AUTO) 63.4 % (38.5-71.5); PLATELET COUNT (AUTO) 187 K/uL (179-408); RED BLOOD CELL COUNT(AUTO) 3.46 MIL/uL (3.63-4.92); WHITE BLOOD COUNT (AUTO) 4.5 K/uL (3.8-11.8)
[2018-01-21 08:53] LABS: ALANINE AMINOTRANSFERASE 32 U/L (14-59); ALKALINE PHOSPHATASE 97 U/L (50-136); ASPARTATE AMINOTRANSFERASE 21 U/L (15-37); BILIRUBIN,TOTAL 0.3 mg/dL (0.2-1.0); CARBON DIOXIDE 30 mmol/L (21-32); CHLORIDE 93 mmol/L (98-107); CREATININE 0.7 mg/dL (0.6-1.3); GLUCOSE 93 mg/dL (74-106); MAGNESIUM 1.5 mg/dL (1.8-2.4); PHOSPHOROUS 3.9 mg/dL (2.5-4.9); POTASSIUM 4.1 mmol/L (3.5-5.1); TOTAL PROTEIN, SERUM 5.9 g/dL (6.4-8.2); UREA NITROGEN, BLOOD 18 mg/dL (7-18)
[2018-01-21] MEDS: METFORMIN HCL 500 MG TABLET PO SCH ×2 (09:31→17:55)
[2018-01-21] MEDS: MULTIVITAMINS,THERAPEUTIC TABLET PO SCH (09:31)
[2018-01-21] MEDS: ARIPIPRAZOLE 5 MG TABLET PO SCH (09:31)
[2018-01-21] MEDS: PANTOPRAZOLE SODIUM 40 MG TABLET.DR PO SCH (09:32)
[2018-01-21] MEDS: METOPROLOL TARTRATE 50 MG TABLET PO SCH ×2 (09:32→21:12)
[2018-01-21] MEDS: CARBAMAZEPINE 200 MG TABLET PO SCH ×2 (09:32→21:11)
[2018-01-21] MEDS: VENLAFAXINE XR 37.5 MG CAP.SR.24H PO SCH (09:32)
[2018-01-21] MEDS: ASPIRIN 81 MG TAB.CHEW PO SCH (09:32)
[2018-01-21] MEDS: FUROSEMIDE 20 MG TABLET PO SCH (09:32)
[2018-01-21] MEDS: ENALAPRIL 10 MG TABLET PO SCH ×2 (09:32→21:13)
[2018-01-21] MEDS: DILTIAZEM HCL CD 120 MG CAP.SR.24H PO SCH (09:33)
[2018-01-21 10:46] VITALS: BP 91/54
[2018-01-21] MEDS: INSULIN REGULAR, HUMAN 300 UNIT/3 ML VIAL SQ PRN ×2 (12:06→16:36)
[2018-01-21] MEDS ORDERED: MAGNESIUM OXIDE 400 MG TABLET PO ONE (13:15)
[2018-01-21 21:08] VITALS: BP 156/77
[2018-01-21] MEDS: SENNOSIDES 1 TABLET PO SCH (21:11)
[2018-01-21] MEDS: INSULIN GLARGINE,HUM 300 UNITS/3 ML CARTRIDGE SQ SCH (21:43)
[2018-01-21] MEDS: INSULIN REGULAR, HUMAN 300 UNITS/3 ML VIAL SQ PRN (21:44)
[2018-01-22 04:00] VITALS: BP 98/52
[2018-01-22] MEDS: LEVOTHYROXINE SODIUM 100 MCG TABLET PO SCH (06:06)
[2018-01-22] MEDS: hydrALAZINE HCL 50 MG TABLET PO SCH ×3 (06:06→22:16)
[2018-01-22] MEDS: CLONIDINE HCL 0.2 MG TABLET PO SCH ×3 (06:06→22:16)
[2018-01-22 06:41] VITALS: BP 147/79
[2018-01-22] MEDS: BLOOD SUGAR DIAGNOSTIC 1 EACH STRIP VI SCH ×4 (06:53→21:03)
[2018-01-22] MEDS: MULTIVITAMINS,THERAPEUTIC TABLET PO SCH (08:36)
[2018-01-22] MEDS: ARIPIPRAZOLE 5 MG TABLET PO SCH (08:36)
[2018-01-22] MEDS: ASPIRIN 81 MG TAB.CHEW PO SCH (08:36)
[2018-01-22] MEDS: ENALAPRIL 10 MG TABLET PO SCH ×2 (08:36→21:03)
[2018-01-22] MEDS: METFORMIN HCL 500 MG TABLET PO SCH ×2 (08:36→17:15)
[2018-01-22] MEDS: METOPROLOL TARTRATE 50 MG TABLET PO SCH ×2 (08:37→21:03)
[2018-01-22] MEDS: DILTIAZEM HCL CD 120 MG CAP.SR.24H PO SCH (08:37)
[2018-01-22] MEDS: FUROSEMIDE 20 MG TABLET PO SCH (08:37)
[2018-01-22] MEDS: CARBAMAZEPINE 200 MG TABLET PO SCH ×2 (08:37→21:03)
[2018-01-22] MEDS: PANTOPRAZOLE SODIUM 40 MG TABLET.DR PO SCH (08:39)
[2018-01-22] MEDS: VENLAFAXINE XR 37.5 MG CAP.SR.24H PO SCH (08:40)
[2018-01-22 09:00] VITALS: BP 125/65
[2018-01-22] MEDS: INSULIN REGULAR, HUMAN 300 UNIT/3 ML VIAL SQ PRN (12:02)
[2018-01-22] MEDS: HYDROCODONE/APAP 10-325 MG TABLET PO PRN (15:19)
[2018-01-22 20:46] VITALS: BP 134/88
[2018-01-22] MEDS: SENNOSIDES 1 TABLET PO SCH (21:02)
[2018-01-22] MEDS: INSULIN GLARGINE,HUM 300 UNITS/3 ML CARTRIDGE SQ SCH (21:12)
[2018-01-22] MEDS: INSULIN REGULAR, HUMAN 300 UNITS/3 ML VIAL SQ PRN (21:13)
[2018-01-22 22:00] VITALS: BP 151/66
[2018-01-23 05:32] VITALS: BP 139/85
[2018-01-23] MEDS: hydrALAZINE HCL 50 MG TABLET PO SCH ×3 (06:27→21:08)
[2018-01-23] MEDS: LEVOTHYROXINE SODIUM 100 MCG TABLET PO SCH (06:27)
[2018-01-23] MEDS: CLONIDINE HCL 0.2 MG TABLET PO SCH ×3 (06:27→21:09)
[2018-01-23] MEDS: BLOOD SUGAR DIAGNOSTIC 1 EACH STRIP VI SCH ×4 (06:30→21:15)
[2018-01-23 08:00] VITALS: BP 144/63
[2018-01-23] MEDS: ENALAPRIL 10 MG TABLET PO SCH ×2 (08:49→21:09)
[2018-01-23] MEDS: ASPIRIN 81 MG TAB.CHEW PO SCH (08:51)
[2018-01-23] MEDS: CARBAMAZEPINE 200 MG TABLET PO SCH ×2 (08:51→21:07)
[2018-01-23] MEDS: ARIPIPRAZOLE 5 MG TABLET PO SCH (08:52)
[2018-01-23] MEDS: VENLAFAXINE XR 37.5 MG CAP.SR.24H PO SCH (08:53)
[2018-01-23] MEDS: METFORMIN HCL 500 MG TABLET PO SCH ×2 (08:53→18:00)
[2018-01-23] MEDS: MULTIVITAMINS,THERAPEUTIC TABLET PO SCH (08:53)
[2018-01-23] MEDS: PANTOPRAZOLE SODIUM 40 MG TABLET.DR PO SCH (08:54)
[2018-01-23] MEDS: METOPROLOL TARTRATE 50 MG TABLET PO SCH ×2 (08:54→21:09)
[2018-01-23] MEDS: FUROSEMIDE 20 MG TABLET PO SCH (08:54)
[2018-01-23] MEDS: DILTIAZEM HCL CD 120 MG CAP.SR.24H PO SCH (08:58)
[2018-01-23] MEDS: INSULIN REGULAR, HUMAN 300 UNIT/3 ML VIAL SQ PRN (12:04)
[2018-01-23 16:19] VITALS: BP 123/67
[2018-01-23 20:15] VITALS: BP 144/52
[2018-01-23] MEDS: SENNOSIDES 1 TABLET PO SCH (21:08)
[2018-01-23] MEDS: INSULIN REGULAR, HUMAN 300 UNITS/3 ML VIAL SQ PRN (21:17)
[2018-01-23] MEDS: INSULIN GLARGINE,HUM 300 UNITS/3 ML CARTRIDGE SQ SCH (21:24)
[2018-01-24] MEDS: hydrALAZINE HCL 50 MG TABLET PO SCH ×3 (06:15→21:01)
[2018-01-24] MEDS: CLONIDINE HCL 0.2 MG TABLET PO SCH ×3 (06:15→21:01)
[2018-01-24] MEDS: LEVOTHYROXINE SODIUM 100 MCG TABLET PO SCH (06:15)
[2018-01-24] MEDS: BLOOD SUGAR DIAGNOSTIC 1 EACH STRIP VI SCH ×4 (06:19→21:04)
[2018-01-24] MEDS: ASPIRIN 81 MG TAB.CHEW PO SCH (08:12)
[2018-01-24] MEDS: MULTIVITAMINS,THERAPEUTIC TABLET PO SCH (08:12)
[2018-01-24] MEDS: CARBAMAZEPINE 200 MG TABLET PO SCH ×2 (08:12→20:59)
[2018-01-24] MEDS: ARIPIPRAZOLE 5 MG TABLET PO SCH (08:12)
[2018-01-24] MEDS: PANTOPRAZOLE SODIUM 40 MG TABLET.DR PO SCH (08:12)
[2018-01-24] MEDS: VENLAFAXINE XR 37.5 MG CAP.SR.24H PO SCH (08:12)
[2018-01-24] MEDS: METFORMIN HCL 500 MG TABLET PO SCH ×2 (08:13→18:03)
[2018-01-24] MEDS: FUROSEMIDE 20 MG TABLET PO SCH (08:16)
[2018-01-24] MEDS: METOPROLOL TARTRATE 50 MG TABLET PO SCH ×2 (08:20→20:59)
[2018-01-24] MEDS: ENALAPRIL 10 MG TABLET PO SCH ×2 (08:22→20:58)
[2018-01-24] MEDS: DILTIAZEM HCL CD 120 MG CAP.SR.24H PO SCH (08:23)
[2018-01-24 08:27] VITALS: BP 103/60
[2018-01-24 15:27] VITALS: BP 141/77
[2018-01-24 19:30] VITALS: BP 112/54
[2018-01-24] MEDS: SENNOSIDES 1 TABLET PO SCH (20:59)
[2018-01-24 21:00] VITALS: BP 168/77
[2018-01-24] MEDS: INSULIN REGULAR, HUMAN 300 UNITS/3 ML VIAL SQ PRN (21:06)
[2018-01-25] MEDS: LEVOTHYROXINE SODIUM 100 MCG TABLET PO SCH (06:19)
[2018-01-25] MEDS: CLONIDINE HCL 0.2 MG TABLET PO SCH ×3 (06:20→22:03)
[2018-01-25] MEDS: hydrALAZINE HCL 50 MG TABLET PO SCH ×3 (06:20→22:03)
[2018-01-25] MEDS: BLOOD SUGAR DIAGNOSTIC 1 EACH STRIP VI SCH ×4 (06:34→20:16)
[2018-01-25 06:51] VITALS: BP 145/74
[2018-01-25 07:23] LABS: CARBON DIOXIDE 26 mmol/L (21-32); CHLORIDE 90 mmol/L (98-107); CREATININE 0.8 mg/dL (0.6-1.3); GLUCOSE 166 mg/dL (74-106); MAGNESIUM 1.5 mg/dL (1.8-2.4); POTASSIUM 4.2 mmol/L (3.5-5.1); UREA NITROGEN, BLOOD 20 mg/dL (7-18)
[2018-01-25 08:06] VITALS: BP 104/58
[2018-01-25] MEDS: INSULIN REGULAR, HUMAN 300 UNIT/3 ML VIAL SQ PRN ×3 (08:18→16:54)
[2018-01-25] MEDS: INSULIN GLARGINE,HUM 300 UNITS/3 ML CARTRIDGE SQ SCH (08:21)
[2018-01-25] MEDS: METFORMIN HCL 500 MG TABLET PO SCH ×2 (08:22→16:47)
[2018-01-25] MEDS: ASPIRIN 81 MG TAB.CHEW PO SCH (08:22)
[2018-01-25] MEDS: CARBAMAZEPINE 200 MG TABLET PO SCH ×2 (08:23→20:16)
[2018-01-25] MEDS: FUROSEMIDE 20 MG TABLET PO SCH (08:23)
[2018-01-25] MEDS: VENLAFAXINE XR 37.5 MG CAP.SR.24H PO SCH (08:23)
[2018-01-25] MEDS: MULTIVITAMINS,THERAPEUTIC TABLET PO SCH (08:23)
[2018-01-25] MEDS: PANTOPRAZOLE SODIUM 40 MG TABLET.DR PO SCH (08:23)
[2018-01-25] MEDS: ARIPIPRAZOLE 5 MG TABLET PO SCH (08:24)
[2018-01-25] MEDS: DILTIAZEM HCL CD 120 MG CAP.SR.24H PO SCH (08:24)
[2018-01-25] MEDS: METOPROLOL TARTRATE 50 MG TABLET PO SCH ×2 (08:25→20:15)
[2018-01-25] MEDS: ENALAPRIL 10 MG TABLET PO SCH ×2 (08:25→20:16)
[2018-01-25] MEDS ORDERED: MAGNESIUM OXIDE 400 MG TABLET PO ONE (15:30)
[2018-01-25 16:36] VITALS: BP 166/71
[2018-01-25] MEDS: SENNOSIDES 1 TABLET PO SCH (20:15)
[2018-01-25 20:44] VITALS: BP 174/68
[2018-01-25 22:00] VITALS: BP 189/108
[2018-01-25] MEDS: HYDROCODONE/APAP 10-325 MG TABLET PO PRN (22:37)
[2018-01-25 23:00] VITALS: BP 135/60
[2018-01-25] MEDS ORDERED: hydrALAZINE HCL 50 MG TABLET PO ONE (23:41)
[2018-01-26] MEDS: CLONAZEPAM 1 MG TABLET PO PRN (02:29)
[2018-01-26] MEDS: CLONIDINE HCL 0.2 MG TABLET PO SCH ×2 (05:57→14:29)
[2018-01-26] MEDS: hydrALAZINE HCL 50 MG TABLET PO SCH ×2 (05:58→14:30)
[2018-01-26] MEDS: LEVOTHYROXINE SODIUM 100 MCG TABLET PO SCH (06:01)
[2018-01-26] MEDS: BLOOD SUGAR DIAGNOSTIC 1 EACH STRIP VI SCH ×3 (06:30→16:35)
[2018-01-26 06:44] VITALS: BP 174/68
[2018-01-26 07:22] LABS: BASOPHILS % (AUTO) 0.7 % (0.0-2.0); EOSINOPHILS # (AUTO) 0.2 K/uL (0.0-0.7); EOSINOPHILS % (AUTO) 4.2 % (0.0-7.0); HEMATOCRIT 33.8 % (31.2-41.9); HEMOGLOBIN 12.1 g/dL (10.9-14.3); LYMPHOCYTES % (AUTO) 23.5 % (20.5-51.5); MEAN CORPUSCULAR HEMOGLOBIN 32.8 uug (24.7-32.8); MEAN CORPUSCULAR HGB CONC 36 g/dL (32.3-35.6); MEAN CORPUSCULAR VOLUME 91.9 fL (75.5-95.3); MONOCYTES # (AUTO) 0.4 K/uL (2.0-10.0); MONOCYTES % (AUTO) 9.1 % (0.0-11.0); NEUTROPHILS # (AUTO) 2.7 K/uL (1.8-8.9); NEUTROPHILS % (AUTO) 62.5 % (38.5-71.5); PLATELET COUNT (AUTO) 222 K/uL (179-408); RED BLOOD CELL COUNT(AUTO) 3.67 MIL/uL (3.63-4.92); WHITE BLOOD COUNT (AUTO) 4.3 K/uL (3.8-11.8)
[2018-01-26 07:50] LABS: ALANINE AMINOTRANSFERASE 28 U/L (14-59); ALKALINE PHOSPHATASE 96 U/L (50-136); ASPARTATE AMINOTRANSFERASE 20 U/L (15-37); BILIRUBIN,TOTAL 0.3 mg/dL (0.2-1.0); CARBON DIOXIDE 30 mmol/L (21-32); CHLORIDE 92 mmol/L (98-107); CREATININE 0.7 mg/dL (0.6-1.3); GLUCOSE 132 mg/dL (74-106); MAGNESIUM 1.5 mg/dL (1.8-2.4); PHOSPHOROUS 3.3 mg/dL (2.5-4.9); POTASSIUM 4.2 mmol/L (3.5-5.1); TOTAL PROTEIN, SERUM 6.4 g/dL (6.4-8.2); UREA NITROGEN, BLOOD 19 mg/dL (7-18)
[2018-01-26] MEDS: ARIPIPRAZOLE 5 MG TABLET PO SCH (08:20)
[2018-01-26] MEDS: PANTOPRAZOLE SODIUM 40 MG TABLET.DR PO SCH (08:21)
[2018-01-26] MEDS: VENLAFAXINE XR 37.5 MG CAP.SR.24H PO SCH (08:21)
[2018-01-26] MEDS: MULTIVITAMINS,THERAPEUTIC TABLET PO SCH (08:21)
[2018-01-26] MEDS: FUROSEMIDE 20 MG TABLET PO SCH (08:22)
[2018-01-26] MEDS: CARBAMAZEPINE 200 MG TABLET PO SCH (08:22)
[2018-01-26] MEDS: ASPIRIN 81 MG TAB.CHEW PO SCH (08:22)
[2018-01-26] MEDS: INSULIN REGULAR, HUMAN 300 UNIT/3 ML VIAL SQ PRN ×2 (08:25→12:05)
[2018-01-26] MEDS: INSULIN GLARGINE,HUM 300 UNITS/3 ML CARTRIDGE SQ SCH (08:28)
[2018-01-26] MEDS: DILTIAZEM HCL CD 120 MG CAP.SR.24H PO SCH (08:40)
[2018-01-26] MEDS: ENALAPRIL 10 MG TABLET PO SCH (08:41)
[2018-01-26] MEDS: METOPROLOL TARTRATE 50 MG TABLET PO SCH (08:42)
[2018-01-26] MEDS: METFORMIN HCL 500 MG TABLET PO SCH ×2 (08:49→17:20)
[2018-01-26 11:32] VITALS: BP 137/59
[2018-01-26] MEDS ORDERED: MAGNESIUM OXIDE 400 MG TABLET PO ONE (14:15)
[2018-01-26 14:30] VITALS: BP 138/72
[2018-01-26] MEDS ORDERED: INSU100V28 SQ (19:09)
[2018-01-26] MEDS ORDERED: SENN-18 PO (19:10)
== END 2018-01-26 17:45 | disposition short-term general hospital (02) | DRG 291 ==
PROVIDERS: ADMIT Physical Medicine & Rehabilitation Pain Medicine; ATTEND Physical Medicine & Rehabilitation Pain Medicine
DX: I11.0 Hypertensive heart disease with heart failure (principal); N17.0 Acute kidney failure with tubular necrosis; D68.59 Other primary thrombophilia; E22.2 Syndrome of inappropriate secretion of antidiuretic hormone; I47.1 Supraventricular tachycardia; I50.33 Acute on chronic diastolic (congestive) heart failure; E03.9 Hypothyroidism, unspecified; E11.65 Type 2 diabetes mellitus with hyperglycemia; F03.90 Unspecified dementia, unspecified severity, without behavioral disturbance, psychotic disturbance, mood disturbance, and anxiety; I49.5 Sick sinus syndrome; Z98.84 Bariatric surgery status; G89.29 Other chronic pain; I25.2 Old myocardial infarction; R53.1 Weakness; K59.00 Constipation, unspecified; Z87.891 Personal history of nicotine dependence; E83.42 Hypomagnesemia; K43.9 Ventral hernia without obstruction or gangrene; R32 Unspecified urinary incontinence; Z91.19 Patient's noncompliance with other medical treatment and regimen; Z91.81 History of falling; R29.6 Repeated falls; M54.9 Dorsalgia, unspecified; Z95.0 Presence of cardiac pacemaker
CPT/HCPCS: 36415; 70030-TC; 83735; 84100; 85025; 92507; 92523; 97110; 97112; 97116; 97530; 97535; A4663; J1815

== ENCOUNTER 2018-01-26 17:58 | Inpatient (IN) | payer MEDICARE, BC ==
[~2018-01-26] VITALS: Ht 170.2 cm; Wt 79.4 kg
--- NOTE | 2018-01-26 17:40 | NUR ---
PATIENT RECEIVED FOR ADMISSION 72 YEARS OLD FEMALE FROM ARU BY W/CHAIR TO ROOM 217 PLACED INTO BED FIXED AND MADE COMFORTABLE.PATIENT IS ALERT AND ORIENTED SOMEWHAT FORGETFUL DENIES PAIN OR DISCOMFORTS AT THIS TIME.PLACED ON TELEMETRY MONITORING HEPLOCK INSERTED TO HER RIGHT WRIST GAUGE 20 AND FLUSHED PER PROTOCOL ORIENTED TO HER NEW ROOM AND M/S TELEMETRY PROTOCOL.CALLED DR ACEVEDO AND LEFT MESSAGE.
[2018-01-26 18:41] VITALS: BP 115/46
[2018-01-26] MEDS ORDERED: INSU100V28 SQ (19:09)
[2018-01-26] MEDS ORDERED: SENN-18 PO (19:10)
[2018-01-26 20:00] VITALS: BP 147/62
--- NOTE | 2018-01-26 20:00 | NUR ---
RECEIVED PT'S A/A/O X3 DENIED OF PAIN BUT C/O HUNGRY;SNACK'S GIVEN TO PT REQUEST;PT TOLERATED WELL NOTED.CALLED TO RECONCILE MEDICATION AT THIS TIME;PER MD HE'LL COME TO HOSPITAL AND SEE PT NOTED.SAFETY RENDER.
[2018-01-26] MEDS ORDERED: INSULIN REGULAR, HUMAN 300 UNIT/3 ML VIAL SQ SCH (21:30)
[2018-01-26] MEDS ORDERED: HYDROCODONE/APAP 10-325 MG TABLET PO PRN (21:30)
[2018-01-26] MEDS ORDERED: CLONAZEPAM 1 MG TABLET PO PRN (21:30)
--- NOTE | 2018-01-26 22:20 | NUR ---
NEW ORDER'S GIVEN:CARRIED IT OUT NOTED.ASSISTED PT TO BATHROOM IN ORDER TO COLLECT URINE EXAM MD'S ORDER BUT IT'S UNABLE BECAUSE PT DROPPED IT OFF NOTED.WILL RECOLLECT DINORA;EDUCATED TO PT ABOUT THE REASON;PT STATED THAT "I'LL DO IT IN THE MORNING.I NEED TO SLEEP".KEPT COMFORT.CALL-LIGHT WITHIN REACH.
[2018-01-26] MEDS: hydrALAZINE HCL 50 MG TABLET PO SCH (22:25)
[2018-01-26] MEDS: CLONIDINE HCL 0.2 MG TABLET PO SCH (22:25)
[2018-01-27] VITALS: BP 122/57
--- NOTE | 2018-01-27 01:30 | NUR ---
PT SLEPT WELL,UNLABORED BREATHING NOTED.PT'S DAUGHTER(KAMLESH) CALLED AND ASKED ABOUT PT'S CONDITION,SHE STATED THAT SHE JUST WOKE UP. PER TRAVEL SPECIALIST,TELEMETRY'S V-PACING UNDERLINE SINUS RHYTHM NOTED.CONTINUED MONITORING TO PT.BED ALARM'S ON.
[2018-01-27 04:00] VITALS: BP 145/66
[2018-01-27] MEDS ORDERED: CLONIDINE HCL 0.2 MG TABLET ONE (05:56)
[2018-01-27] MEDS: hydrALAZINE HCL 50 MG TABLET PO SCH ×3 (06:01→22:29)
[2018-01-27] MEDS: CLONIDINE HCL 0.2 MG TABLET PO SCH ×3 (06:01→22:28)
--- NOTE | 2018-01-27 06:30 | NUR ---
PT SLEPT WELL DURING OF THE NIGHT;COOPERATIVE W/ASSISTANCE.EDUCATED TO PT IN ORDER TO COLLECT URINE FOR EXAM ORDER,PT STATED THAT "I'M NOT READY YET.I NEED TO SLEEP MORE,WILL DO IN THE MORNING".KEPT COMFORT.RANDOM ACCUCHECK THIS MORNING,BS'S 115 MG/DL.KEPT CALL-LIGHT WITHIN REACH.BED ALARM'S ON.
[2018-01-27 07:01] LABS: BASOPHILS % (AUTO) 1.1 % (0.0-2.0); EOSINOPHILS # (AUTO) 0.2 K/uL (0.0-0.7); EOSINOPHILS % (AUTO) 5.8 % (0.0-7.0); HEMATOCRIT 35.2 % (31.2-41.9); HEMOGLOBIN 12.4 g/dL (10.9-14.3); LYMPHOCYTES # (AUTO) 1.3 K/uL (20.0-40.0); LYMPHOCYTES % (AUTO) 30.8 % (20.5-51.5); MEAN CORPUSCULAR HEMOGLOBIN 32.3 uug (24.7-32.8); MEAN CORPUSCULAR HGB CONC 35 g/dL (32.3-35.6); MEAN CORPUSCULAR VOLUME 91.9 fL (75.5-95.3); MONOCYTES # (AUTO) 0.4 K/uL (2.0-10.0); MONOCYTES % (AUTO) 10.1 % (0.0-11.0); NEUTROPHILS # (AUTO) 2.2 K/uL (1.8-8.9); NEUTROPHILS % (AUTO) 52.2 % (38.5-71.5); PLATELET COUNT (AUTO) 209 K/uL (179-408); RED BLOOD CELL COUNT(AUTO) 3.83 MIL/uL (3.63-4.92); WHITE BLOOD COUNT (AUTO) 4.3 K/uL (3.8-11.8)
[2018-01-27 07:20] LABS: ALANINE AMINOTRANSFERASE 26 U/L (14-59); ALKALINE PHOSPHATASE 91 U/L (50-136); ASPARTATE AMINOTRANSFERASE 19 U/L (15-37); BILIRUBIN,TOTAL 0.2 mg/dL (0.2-1.0); CARBON DIOXIDE 29 mmol/L (21-32); CHLORIDE 94 mmol/L (98-107); CREATININE 0.8 mg/dL (0.6-1.3); GLUCOSE 112 mg/dL (74-106); MAGNESIUM 1.5 mg/dL (1.8-2.4); PHOSPHOROUS 4.2 mg/dL (2.5-4.9); POTASSIUM 4.4 mmol/L (3.5-5.1); UREA NITROGEN, BLOOD 17 mg/dL (7-18)
[2018-01-27] MEDS ORDERED: Medication Not On Formulary EA (Aripiprazole (Abilify) 15 MG) PO SCH (09:00)
[2018-01-27] MEDS ORDERED: Medication Not On Formulary EA (Multivitamins (Multivitamin) 1 TAB) PO SCH (09:00)
[2018-01-27] MEDS ORDERED: Medication Not On Formulary EA (Enalapril Maleate (Vasotec) 20 MG) PO SCH (09:00)
[2018-01-27] MEDS: ARIPIPRAZOLE 5 MG TABLET PO SCH (09:12)
[2018-01-27] MEDS: ENALAPRIL 10 MG TABLET PO SCH ×2 (09:13→20:11)
[2018-01-27] MEDS: PANTOPRAZOLE SODIUM 40 MG TABLET.DR PO SCH (09:13)
[2018-01-27] MEDS: MULTIVITAMINS,THERAPEUTIC TABLET PO SCH (09:13)
[2018-01-27] MEDS: LEVOTHYROXINE SODIUM 100 MCG TABLET PO SCH (09:14)
[2018-01-27] MEDS: ASPIRIN 81 MG TAB.CHEW PO SCH (09:14)
[2018-01-27] MEDS: VENLAFAXINE XR 37.5 MG CAP.SR.24H PO SCH (09:14)
[2018-01-27] MEDS: DILTIAZEM HCL CD 120 MG CAP.SR.24H PO SCH (09:15)
[2018-01-27] MEDS: FUROSEMIDE 20 MG TABLET PO SCH (09:15)
[2018-01-27] MEDS: METOPROLOL TARTRATE 50 MG TABLET PO SCH ×2 (09:15→17:41)
[2018-01-27] MEDS: METFORMIN HCL 500 MG TABLET PO SCH ×2 (09:15→17:39)
[2018-01-27] MEDS: CARBAMAZEPINE 200 MG TABLET PO SCH (09:15)
[2018-01-27] MEDS: INSULIN GLARGINE,HUM 300 UNITS/3 ML CARTRIDGE SQ SCH (09:36)
[2018-01-27 11:07] VITALS: BP 123/70
--- NOTE | 2018-01-27 13:49 | NUR ---
PATIENT BEEN SLEEPING SINCE THE MORNING, AROUSABLE BY TOUCH. PER PT AND THOMAS CAMPBELL PATIENT NORMALLY SLEEP A LOT DURING THE DAY SINCE SHE GOT TRANSFERRED FROM [facility]. V/S WNL. WILL CONTINUE MONITORING.
[2018-01-27] MEDS: MAGNESIUM SULFATE/D5W 100 ML IV SCH ×2 (14:30→16:37)
--- NOTE | 2018-01-27 18:35 | NUR ---
BROUGHT TO CLEVE BILL ATTENTION THAT PATIENT DOES NOT HAVE AN ORDER FOR ACCUCHECKS, PATIENT IS IN [place]. WINDOWS SERVER SPECIALIST VERBALIZED THAT SHE DOES NOT NEED ONE, HER BS IS NORMALLY CONTROL.
[2018-01-27 19:28] VITALS: BP 110/64
[2018-01-27 19:47] LABS: *BILIRUBIN,URIN NEGATIVE (NEGATIVE); *BLOOD, URINE NEGATIVE (NEGATIVE); *CLARITY,URINE CLEAR (CLEAR); *COLOR,URINE YELLOW (YELLOW); *KETONES,URINE NEGATIVE (NEGATIVE); *PROTEIN,URINE NEGATIVE (NEGATIVE); *UROBILINOGEN,URINE 0.2 E.U./dl (NORMAL); LEUKOCYTE ESTERASE ,URINE NEGATIVE (NEGATIVE); NITRITE, URINE NEGATIVE (NEGATIVE); PH,URINE 5.5 (5.0-8.0); UGLUCOSE NEGATIVE (NEGATIVE)
[2018-01-27 19:51] LABS: BACTERIA,URINE FEW /HPF (NONE SEEN); RBC,URINE 0-3 /HPF (0-3); SQUAMOUS EPITHELIAL CELL,UR FEW /HPF (NONE SEEN); WBC,URINE 0-3 /HPF (0-3)
[2018-01-27 19:52] LABS: *CREATININE,URINE 38.6 mg/dL (30-125); *URINE TOTAL PROTEIN RANDOM 6.3 mg/dL (<150/24HR)
[2018-01-27] MEDS ORDERED: CARBAMAZEPINE 200 MG TABLET PO SCH (21:00)
[2018-01-27] MEDS ORDERED: SENNOSIDES 1 TABLET PO SCH (21:00)
--- NOTE | 2018-01-27 21:33 | NUR ---
Received pt awake. alert, orientedx3. Pt shows no signs of distress. Pt iv intact and patent. Call light within reach. Bed alarm on and in low position, and side rails upx2. Safety and comfort provided. Will continue to monitor.
--- NOTE | 2018-01-27 22:28 | NUR ---
CHECKED BP OF THE PT 123/82 AND RR OF 60 AND GAVE THE BLOOD PRESSURE MEDICATION THAT WAS SCHEDULED FOR 2200. WILL CONTINUE TO MONITOR.
[2018-01-27 22:42] VITALS: BP 123/82
[2018-01-27 23:40] VITALS: BP 76/46
--- NOTE | 2018-01-28 | NUR ---
CHECKED BLOOD PRESSURE BP LOW 76/46 AND PULSE 64 RESP 18 TEMP 980 PULSE SATURATION 95%. CALLED RAPID RESPONSE FOR THE PT.
--- NOTE | 2018-01-28 00:40 | NUR ---
NOTIFY DR FINE ARTS TEACHER THAT PT HAS DECREASE BLOOD PRESSURE. PT IS AWAKE, ALERT, ORIENTEDX3. PT FOLLOW COMMANDS TO WIGGLE HER TOES. PT FEEL FINE . NO ACUTE DISTRESS. PT WAS GIVEN BOLUS OF NS 250ML. PT RECENT BLOOD PRESSURE WAS 84/49. WILL CONTINUE TO MONITOR.
--- NOTE | 2018-01-28 01:16 | NUR ---
RECENT BLOOD PRESSURE IS 96/51. PULSE 65.SINUS RHYTHM IN ELECTRONIC TESTER. WILL CONTINUE TO MONITOR.
[2018-01-28 03:42] VITALS: BP 107/64
[2018-01-28 05:58] LABS: BASOPHILS % (AUTO) 0.8 % (0.0-2.0); EOSINOPHILS # (AUTO) 0.3 K/uL (0.0-0.7); EOSINOPHILS % (AUTO) 5.6 % (0.0-7.0); HEMOGLOBIN 13.2 g/dL (10.9-14.3); LYMPHOCYTES # (AUTO) 1.2 K/uL (20.0-40.0); LYMPHOCYTES % (AUTO) 24.9 % (20.5-51.5); MEAN CORPUSCULAR HEMOGLOBIN 32.1 uug (24.7-32.8); MEAN CORPUSCULAR HGB CONC 35 g/dL (32.3-35.6); MEAN CORPUSCULAR VOLUME 92.7 fL (75.5-95.3); MONOCYTES # (AUTO) 0.4 K/uL (2.0-10.0); MONOCYTES % (AUTO) 8.7 % (0.0-11.0); NEUTROPHILS # (AUTO) 2.9 K/uL (1.8-8.9); PLATELET COUNT (AUTO) 227 K/uL (179-408); WHITE BLOOD COUNT (AUTO) 4.8 K/uL (3.8-11.8)
[2018-01-28] MEDS: hydrALAZINE HCL 50 MG TABLET PO SCH ×2 (05:58→15:08)
[2018-01-28] MEDS: CLONIDINE HCL 0.2 MG TABLET PO SCH ×2 (06:00→15:09)
[2018-01-28 06:20] LABS: ALANINE AMINOTRANSFERASE 34 U/L (14-59); ALKALINE PHOSPHATASE 86 U/L (50-136); ASPARTATE AMINOTRANSFERASE 23 U/L (15-37); BILIRUBIN,TOTAL 0.2 mg/dL (0.2-1.0); CARBON DIOXIDE 28 mmol/L (21-32); CHLORIDE 96 mmol/L (98-107); CREATININE 0.9 mg/dL (0.6-1.3); GLUCOSE 81 mg/dL (74-106); MAGNESIUM 1.8 mg/dL (1.8-2.4); PHOSPHOROUS 4.6 mg/dL (2.5-4.9); POTASSIUM 4.2 mmol/L (3.5-5.1); TOTAL PROTEIN, SERUM 6.4 g/dL (6.4-8.2); UREA NITROGEN, BLOOD 21 mg/dL (7-18)
--- NOTE | 2018-01-28 06:24 | NUR ---
PT SLEPT INTERMITTENTLY.PT SHOWS NO SIGNS OF DISTRESS. PT IV INTACT AND PATENT. PT STABLE.ALL NEEDS ARE MET. PT BLOOD PRESSURE WENT 150/59 THEN I GAVE THE MEDICATION APRESOLINE AFTER 1 HR IT WENT TO 107/64. I HELD THE CATAPRES BECAUSE IT WILL LOWER DOWN THE BLOOD PRESSURE. CHARGE NURSE AWARE . SAFETY AND COMFORT PROVIDED. WILL ENDORSE TO DAYSHIFT NURSE.
[2018-01-28] MEDS: METOPROLOL TARTRATE 50 MG TABLET PO SCH (09:00)
[2018-01-28] MEDS: METFORMIN HCL 500 MG TABLET PO SCH (09:19)
[2018-01-28] MEDS: FUROSEMIDE 20 MG TABLET PO SCH (09:20)
[2018-01-28] MEDS: MULTIVITAMINS,THERAPEUTIC TABLET PO SCH (09:20)
[2018-01-28] MEDS: PANTOPRAZOLE SODIUM 40 MG TABLET.DR PO SCH (09:20)
[2018-01-28] MEDS: LEVOTHYROXINE SODIUM 100 MCG TABLET PO SCH (09:20)
[2018-01-28] MEDS: VENLAFAXINE XR 37.5 MG CAP.SR.24H PO SCH (09:20)
[2018-01-28] MEDS: ASPIRIN 81 MG TAB.CHEW PO SCH (09:20)
[2018-01-28] MEDS: CARBAMAZEPINE 200 MG TABLET PO SCH (09:20)
[2018-01-28] MEDS: DILTIAZEM HCL CD 120 MG CAP.SR.24H PO SCH (09:21)
[2018-01-28] MEDS: ARIPIPRAZOLE 5 MG TABLET PO SCH (09:36)
[2018-01-28] MEDS: INSULIN GLARGINE,HUM 300 UNITS/3 ML CARTRIDGE SQ SCH (09:48)
[2018-01-28] MEDS: ENALAPRIL 10 MG TABLET PO SCH (11:05)
[2018-01-28 11:31] VITALS: BP 113/52
--- NOTE | 2018-01-28 15:00 | NUR ---
Patient discharged to home with [facility] health. Discharge instructions/teaching provided, patient verbalized understanding. Belonging list done. IV access removed. Daughter/sister notified.
[2018-01-28 15:13] VITALS: BP 115/89
--- NOTE | 2018-01-28 16:00 | NUR ---
Patient left the unit via wheelchair assisted by FIRER TUNNEL KILN. Patient provided taxi coupon. Daughter/Sister aware of discharge.
--- NOTE | 2018-01-28 16:00 | NUR ---
Patient's personal home medications returned and sent home with the patient.
== END 2018-01-28 16:00 | disposition home health service (06) | DRG 643 ==
LOC: TELE 17:58
PROVIDERS: ADMIT Internal Medicine; ATTEND Internal Medicine
DX: E22.2 Syndrome of inappropriate secretion of antidiuretic hormone (principal); I50.33 Acute on chronic diastolic (congestive) heart failure; N17.0 Acute kidney failure with tubular necrosis; I47.1 Supraventricular tachycardia; E11.65 Type 2 diabetes mellitus with hyperglycemia; E03.9 Hypothyroidism, unspecified; F03.90 Unspecified dementia, unspecified severity, without behavioral disturbance, psychotic disturbance, mood disturbance, and anxiety; F32.9 Major depressive disorder, single episode, unspecified; I49.5 Sick sinus syndrome; Z87.891 Personal history of nicotine dependence; Z98.84 Bariatric surgery status; I25.2 Old myocardial infarction; I11.0 Hypertensive heart disease with heart failure; R53.1 Weakness; G89.29 Other chronic pain; T42.1X5A Adverse effect of iminostilbenes, initial encounter; Y92.009 Unspecified place in unspecified non-institutional (private) residence as the place of occurrence of the external cause; Z95.0 Presence of cardiac pacemaker; Z79.84 Long term (current) use of oral hypoglycemic drugs
CPT/HCPCS: 36415; 70030-TC; 71045; 83735; 84100; 84156; 84300; 84443; 85025; 87086; 93005; J1815; J3475; J7050

== ENCOUNTER 2018-06-22 19:26 | Inpatient (IN) | payer MEDICARE, BC, MEDICAID ==
[~2018-06-22] VITALS: Ht 162.6 cm; Wt 68.2 kg
[~2018-06-22 19:26] MED LIST changes: +HYDR-4354 PO; -HYDR-548 PO; +INSU100V28 SQ; -INSU100V7 SQ; +METF-440 PO; -METF500T6 PO; +SENN-18 PO
--- NOTE | 2018-06-22 19:50 | NUR ---
PT BIB DAUGHTER IN PRIVATE VEHICLE. PER DAUGHTER, PT HAS BEEN CONFUSED MORE THAN USUAL DESPITE HX OF DEMENTIA. UPON ASSESSMENT, PT HYPERTENSIVE W/ BGL OF 451. ER MD NOTIFIED. AWAITING ORDERS. PT DENIES PAIN, C/P, SOB, N/V/D, DIZZINESS, HEADACHE.
[2018-06-22] MEDS ORDERED: INSULIN REGULAR, HUMAN 300 UNIT/3 ML VIAL IV ONE (20:15)
[2018-06-22] MEDS ORDERED: LABETALOL HCL 100 MG/20 ML VIAL IV ONE (20:15)
--- NOTE | 2018-06-22 20:36 | NUR ---
PT TAKEN TO RADIOLOGY FOR CT SCAN.
[2018-06-22 20:39] LABS: BASOPHILS % (AUTO) 0.4 % (0.0-2.0); EOSINOPHILS # (AUTO) 0.1 K/uL (0.0-0.7); EOSINOPHILS % (AUTO) 2.7 % (0.0-7.0); HEMATOCRIT 39.4 % (31.2-41.9); HEMOGLOBIN 13.4 g/dL (10.9-14.3); LYMPHOCYTES # (AUTO) 0.7 K/uL (20.0-40.0); LYMPHOCYTES % (AUTO) 13.7 % (20.5-51.5); MEAN CORPUSCULAR HEMOGLOBIN 31.7 uug (24.7-32.8); MEAN CORPUSCULAR HGB CONC 34 g/dL (32.3-35.6); MEAN CORPUSCULAR VOLUME 93.1 fL (75.5-95.3); MONOCYTES # (AUTO) 0.4 K/uL (2.0-10.0); MONOCYTES % (AUTO) 7.9 % (0.0-11.0); NEUTROPHILS % (AUTO) 75.3 % (38.5-71.5); PLATELET COUNT (AUTO) 206 K/uL (179-408); RED BLOOD CELL COUNT(AUTO) 4.23 MIL/uL (3.63-4.92); WHITE BLOOD COUNT (AUTO) 5.3 K/uL (3.8-11.8)
[2018-06-22 20:49] LABS: CARBON DIOXIDE 27 mmol/L (21-32); CHLORIDE 94 mmol/L (98-107); CREATININE 0.8 mg/dL (0.6-1.3); POTASSIUM 4.3 mmol/L (3.5-5.1); UREA NITROGEN, BLOOD 22 mg/dL (7-18)
[2018-06-22 20:52] LABS: GLUCOSE 419 mg/dL (74-106)
[2018-06-22] MEDS ORDERED: INSULIN REGULAR, HUMAN 300 UNIT/3 ML VIAL ONE (20:53)
[2018-06-22] MEDS ORDERED: LABETALOL HCL 100 MG/20 ML VIAL ONE (20:53)
[2018-06-22 20:55] LABS: ALANINE AMINOTRANSFERASE 41 U/L (14-59); ALKALINE PHOSPHATASE 100 U/L (50-136); ASPARTATE AMINOTRANSFERASE 20 U/L (15-37); BILIRUBIN,DIRECT 0.1 mg/dL (0.0-0.2); BILIRUBIN,TOTAL 0.4 mg/dL (0.2-1.0); TOTAL PROTEIN, SERUM 7.1 g/dL (6.4-8.2)
[2018-06-22 20:56] LABS: ACETAMINOPHEN < 2.0 ug/mL (10-30)
[2018-06-22 20:57] LABS: ETHANOL < 3 MG/DL (0-0)
[2018-06-22 21:02] LABS: THYROID STIMULATING HORMONE 2.185 mIU/mL (0.358-3.740)
[2018-06-22 22:20] LABS: *BILIRUBIN,URIN NEGATIVE (NEGATIVE); *BLOOD, URINE NEGATIVE (NEGATIVE); *CLARITY,URINE SLIGHTLY CLOUDY (CLEAR); *COLOR,URINE YELLOW (YELLOW); *KETONES,URINE NEGATIVE (NEGATIVE); *PROTEIN,URINE NEGATIVE (NEGATIVE); *UROBILINOGEN,URINE 0.2 E.U./dl (NORMAL); LEUKOCYTE ESTERASE ,URINE NEGATIVE (NEGATIVE); NITRITE, URINE NEGATIVE (NEGATIVE)
[2018-06-22 22:27] LABS: *AMPHETAMINE, URINE NEGATIVE (NEGATIVE); *BARBITURATE, URINE NEGATIVE (NEGATIVE); *CANNABINOID, URINE NEGATIVE (NEGATIVE); *COCCAINE, URINE NEGATIVE (NEGATIVE); *OPIATE, URINE POSITIVE (NEGATIVE); *PHENCYCLIDINE SCREEN,URINE NEGATIVE (NEGATIVE)
[2018-06-22 22:28] LABS: UGLUCOSE 3+ (NEGATIVE)
[2018-06-22 22:29] LABS: BACTERIA,URINE NONE SEEN /HPF (NONE SEEN); RBC,URINE 0-3 /HPF (0-3); SQUAMOUS EPITHELIAL CELL,UR FEW /HPF (NONE SEEN); URINE AMORPHOUS URATE MODERATE /HPF; WBC,URINE 0-3 /HPF (0-3)
[2018-06-22] MEDS ORDERED: ACETAMINOPHEN 325 MG TABLET PO PRN (22:30)
[2018-06-22] MEDS ORDERED: HYDROCODONE/APAP 10-325 MG TABLET PO PRN (22:30)
[2018-06-22] MEDS ORDERED: CLONAZEPAM 1 MG TABLET PO PRN (22:30)
[2018-06-22] MEDS ORDERED: ONDANSETRON 4 MG/2 ML VIAL IV PRN (22:30)
[2018-06-22] MEDS ORDERED: ENALAPRILAT DIHYDRATE 1.25 MG/1 ML VIAL IV PRN (22:30)
--- NOTE | 2018-06-22 22:45 | NUR ---
Pt. admitted to TELE OVERFLOW, CCU4, under care of Dr. LOAN ACEVEDO. Belongs List completed
--- NOTE | 2018-06-22 23:45 | NUR ---
Received pt on tele unit via [facility] under the care of DR. LOAN ACEVEDO. Pt awake, alert and oriented x2 to name and place. Tele placed, SR with HR 90. BP 149/85, O2 sat Pertinent assessments and unit orientation done. Safe environment initiated. Bed on low locked position. Bed alarm on. Comfort measures provided. Call light within reach. Will continue to carry out all orders. Addendum: 06/23/18 at 0256 by RANDA EDUARDO RN O2 sat 96% RA. Pt has no complaints of pain or SOB at this time.
[2018-06-23] MEDS ORDERED: DEXTROSE 50% 50 ML DISP.SYRIN IV PRN
[2018-06-23 00:18] VITALS: BP 149/85
[2018-06-23] MEDS: INSULIN GLARGINE,HUM 300 UNITS/3 ML CARTRIDGE SQ SCH ×2 (00:59→20:26)
[2018-06-23] MEDS: CLONIDINE HCL 0.2 MG TABLET PO SCH ×4 (01:01→21:44)
[2018-06-23] MEDS: CARBAMAZEPINE 200 MG TABLET PO SCH ×3 (01:03→20:21)
[2018-06-23] MEDS: INSULIN REGULAR, HUMAN 300 UNITS/3 ML VIAL SQ PRN ×2 (01:05→20:25)
[2018-06-23 04:00] VITALS: BP 110/74
[2018-06-23] MEDS: hydrALAZINE HCL 50 MG TABLET PO SCH ×3 (05:18→21:44)
[2018-06-23] MEDS: BLOOD SUGAR DIAGNOSTIC 1 EACH STRIP VI SCH ×4 (06:28→20:23)
--- NOTE | 2018-06-23 06:35 | NUR ---
Pt slept well during the night. Easily arousable with sound and touch. Tele noted to be SR with first degree AV block, some bundle branch block and HR of 98. Blood pressure and blood sugar controlled throughout the night. Pt denies SOB or pain. Pt shows no signs of acute distress. Safety precautions maintained at all times. Bed in low locked position, call light within reach. Will endorse continuity of care to day shift nurse.
[2018-06-23 07:01] LABS: BASOPHILS % (AUTO) 0.4 % (0.0-2.0); EOSINOPHILS # (AUTO) 0.2 K/uL (0.0-0.7); EOSINOPHILS % (AUTO) 3.3 % (0.0-7.0); HEMATOCRIT 36.3 % (31.2-41.9); HEMOGLOBIN 12.4 g/dL (10.9-14.3); MEAN CORPUSCULAR HEMOGLOBIN 31.5 uug (24.7-32.8); MEAN CORPUSCULAR HGB CONC 34 g/dL (32.3-35.6); MEAN CORPUSCULAR VOLUME 92.5 fL (75.5-95.3); MONOCYTES # (AUTO) 0.4 K/uL (2.0-10.0); NEUTROPHILS # (AUTO) 3.5 K/uL (1.8-8.9); NEUTROPHILS % (AUTO) 69.3 % (38.5-71.5); PLATELET COUNT (AUTO) 190 K/uL (179-408); RED BLOOD CELL COUNT(AUTO) 3.92 MIL/uL (3.63-4.92); WHITE BLOOD COUNT (AUTO) 5.1 K/uL (3.8-11.8)
[2018-06-23 07:48] LABS: ALANINE AMINOTRANSFERASE 44 U/L (14-59); ALKALINE PHOSPHATASE 89 U/L (50-136); ASPARTATE AMINOTRANSFERASE 28 U/L (15-37); BILIRUBIN,TOTAL 0.4 mg/dL (0.2-1.0); CARBON DIOXIDE 30 mmol/L (21-32); CHLORIDE 101 mmol/L (98-107); CHOLESTEROL 170 mg/dL (<200); CREATININE 0.7 mg/dL (0.6-1.3); GLUCOSE 120 mg/dL (74-106); HDL CHOLESTEROL 77 mg/dL (40-60); MAGNESIUM 1.3 mg/dL (1.8-2.4); PHOSPHOROUS 3.5 mg/dL (2.5-4.9); POTASSIUM 3.7 mmol/L (3.5-5.1); TOTAL PROTEIN, SERUM 6.3 g/dL (6.4-8.2); TRIGLYCERIDES 22 MG/DL (30-150); UREA NITROGEN, BLOOD 21 mg/dL (7-18)
--- NOTE | 2018-06-23 08:00 | NUR ---
AWAKE ALERT IN BED RESTING COMFORTABLY NO SS OF PAIN OR DISTRESS. CONTINUE CURRENT PLAN OF CARE
[2018-06-23] MEDS: METFORMIN HCL 500 MG TABLET PO SCH ×2 (08:30→17:16)
[2018-06-23] MEDS: ASPIRIN 81 MG TAB.CHEW PO SCH (08:30)
[2018-06-23] MEDS: MULTIVITAMINS,THERAPEUTIC TABLET PO SCH (08:30)
[2018-06-23] MEDS: METOPROLOL TARTRATE 50 MG TABLET PO SCH ×2 (08:31→20:20)
[2018-06-23] MEDS: DILTIAZEM HCL CD 120 MG CAP.SR.24H PO SCH (08:31)
[2018-06-23] MEDS: LEVOTHYROXINE SODIUM 100 MCG TABLET PO SCH (08:31)
[2018-06-23] MEDS: PANTOPRAZOLE SODIUM 40 MG TABLET.DR PO SCH (08:31)
[2018-06-23] MEDS: VENLAFAXINE XR 37.5 MG CAP.SR.24H PO SCH (08:32)
[2018-06-23] MEDS ORDERED: Medication Not On Formulary EA (Aripiprazole (Abilify) 15 MG) PO SCH (09:00)
[2018-06-23] MEDS: ARIPIPRAZOLE 10 MG TABLET PO SCH (10:15)
[2018-06-23 11:02] VITALS: BP 129/85
[2018-06-23] MEDS: INSULIN REGULAR, HUMAN 300 UNIT/3 ML VIAL SQ PRN ×2 (11:59→17:16)
--- NOTE | 2018-06-23 12:00 | NUR ---
SEEN BY OUTPATIENT PHYSICAL THERAPIST ASSISTANT NOTED LABS WITH ORDER OF MAGNESIUM IV
[2018-06-23] MEDS: MAGNESIUM SULFATE/D5W 100 ML IV SCH ×4 (12:03→14:46)
[2018-06-23 15:13] VITALS: BP 132/64
--- NOTE | 2018-06-23 16:30 | NUR ---
CONTINUE CURRENT TX PLAN./ SEE NOTES
--- NOTE | 2018-06-23 18:30 | NUR ---
Received patient lying in bed. AAOX3-4. In no acute distress. Denies any pain or SOB at this time. IV site on right hand intact and patent. Needs assessed and attended to. Safety measure initiated and call espinoza within reach.
[2018-06-23 19:31] VITALS: BP 151/80
[2018-06-23] MEDS ORDERED: SENNOSIDES 1 TABLET PO SCH (21:00)
[2018-06-23] MEDS ORDERED: DOCUSATE SODIUM 100 MG CAPSULE PO SCH (21:00)
[2018-06-24 03:30] VITALS: BP 135/75
[2018-06-24] MEDS: hydrALAZINE HCL 50 MG TABLET PO SCH ×2 (05:29→14:32)
[2018-06-24] MEDS: CLONIDINE HCL 0.2 MG TABLET PO SCH ×2 (05:29→14:32)
--- NOTE | 2018-06-24 06:22 | NUR ---
AAOX2-3 with periods of confusion. In no acute distress. Denies any further pain. No SOB. IV site on right hand intact and patent. Needs assessed and attended to. Safety measure maintained and call espinoza within reach.
[2018-06-24] MEDS: BLOOD SUGAR DIAGNOSTIC 1 EACH STRIP VI SCH ×3 (06:33→17:10)
[2018-06-24 06:58] LABS: RED BLOOD CELL COUNT(AUTO) 4.11 MIL/uL (3.63-4.92); WHITE BLOOD COUNT (AUTO) 9.4 K/uL (3.8-11.8)
[2018-06-24 06:59] LABS: BASOPHILS % (AUTO) 0.5 % (0.0-2.0); EOSINOPHILS # (AUTO) 0.2 K/uL (0.0-0.7); EOSINOPHILS % (AUTO) 1.6 % (0.0-7.0); HEMATOCRIT 38.2 % (31.2-41.9); LYMPHOCYTES # (AUTO) 1.1 K/uL (20.0-40.0); LYMPHOCYTES % (AUTO) 11.1 % (20.5-51.5); MEAN CORPUSCULAR HEMOGLOBIN 31.7 uug (24.7-32.8); MEAN CORPUSCULAR HGB CONC 34 g/dL (32.3-35.6); MEAN CORPUSCULAR VOLUME 93.1 fL (75.5-95.3); MONOCYTES # (AUTO) 0.6 K/uL (2.0-10.0); MONOCYTES % (AUTO) 6.3 % (0.0-11.0); NEUTROPHILS # (AUTO) 7.6 K/uL (1.8-8.9); NEUTROPHILS % (AUTO) 80.5 % (38.5-71.5); PLATELET COUNT (AUTO) 226 K/uL (179-408)
[2018-06-24 07:44] LABS: CARBON DIOXIDE 30 mmol/L (21-32); CHLORIDE 97 mmol/L (98-107); CREATININE 0.8 mg/dL (0.6-1.3); GLUCOSE 176 mg/dL (74-106); MAGNESIUM 1.8 mg/dL (1.8-2.4); PHOSPHOROUS 3.6 mg/dL (2.5-4.9); POTASSIUM 3.8 mmol/L (3.5-5.1); UREA NITROGEN, BLOOD 19 mg/dL (7-18)
[2018-06-24 10:05] VITALS: BP 123/76
[2018-06-24] MEDS: METFORMIN HCL 500 MG TABLET PO SCH ×2 (10:06→17:00)
[2018-06-24] MEDS: PANTOPRAZOLE SODIUM 40 MG TABLET.DR PO SCH (10:06)
[2018-06-24] MEDS: METOPROLOL TARTRATE 50 MG TABLET PO SCH (10:06)
[2018-06-24] MEDS: DILTIAZEM HCL CD 120 MG CAP.SR.24H PO SCH (10:07)
[2018-06-24] MEDS: MULTIVITAMINS,THERAPEUTIC TABLET PO SCH (10:07)
[2018-06-24] MEDS: CARBAMAZEPINE 200 MG TABLET PO SCH (10:07)
[2018-06-24] MEDS: LEVOTHYROXINE SODIUM 100 MCG TABLET PO SCH (10:07)
[2018-06-24] MEDS: ASPIRIN 81 MG TAB.CHEW PO SCH (10:07)
[2018-06-24] MEDS: ARIPIPRAZOLE 10 MG TABLET PO SCH (10:07)
[2018-06-24] MEDS: VENLAFAXINE XR 37.5 MG CAP.SR.24H PO SCH (10:08)
--- NOTE | 2018-06-24 10:30 | NUR ---
patient is oriented to self, oriented to hospital however noted delusional at times. patient states "its because of those evil people". patient noted confused at times, redirection needed continue to monitor
[2018-06-24 11:06] VITALS: BP 122/80
[2018-06-24] MEDS ORDERED: INSU100V28 SQ ×2 (11:33)
[2018-06-24] MEDS ORDERED: Insulin Glargine,Hum SQ (11:33)
[2018-06-24] MEDS ORDERED: ONDA4VIA23 IV (11:33)
[2018-06-24 15:03] VITALS: BP 160/74
[2018-06-24 16:04] VITALS: BP 139/84
--- NOTE | 2018-06-24 17:00 | NUR ---
PATIENT MEDICALLY STABLE TO DISCHARGE, ADMIT TO MHU PLACED ON 5150 FOR GRAVE DISABILITY, D/S INSTRUCTIONS GIVEN TO PATIENT REMAINS CONFUSED AND DELUSIONAL . CONTINUE TO EDUCATE AT NEXT LEVEL OF CARE. ADMIT PATIENT OVERFLOW AT THIS TIME Addendum: 06/24/18 at 1752 by ROWDY CHARLES RN CORRECTION D/C INSTRUCTIONS GIVEN NOT D/S
--- NOTE | 2018-06-24 17:33 | NUR ---
unable to safely administer Metformin, patient refusing meal, poor intake. medication held
--- NOTE | 2018-06-24 17:35 | NUR ---
patient medically stable, discharge from [facility] admit to MHU, admitting Diagnosis :Psychosis. patient instructed on discharge, poor insight, confused. continue to educate at next level of care questions and concerns addressed.
--- NOTE | 2018-06-24 17:35 | NUR ---
patient wondering into another patient room, confused redirected by staff.
== END 2018-06-24 17:40 | DRG 637 ==
LOC: ER 19:28 → CCU 23:39 → TELE 23:59 → MED 06-23 16:55
PROVIDERS: ADMIT Internal Medicine; ATTEND Internal Medicine
DX: E11.65 Type 2 diabetes mellitus with hyperglycemia (principal); G93.41 Metabolic encephalopathy; I50.32 Chronic diastolic (congestive) heart failure; D68.59 Other primary thrombophilia; F31.5 Bipolar disorder, current episode depressed, severe, with psychotic features; E22.2 Syndrome of inappropriate secretion of antidiuretic hormone; I11.0 Hypertensive heart disease with heart failure; F01.50 Vascular dementia, unspecified severity, without behavioral disturbance, psychotic disturbance, mood disturbance, and anxiety; Z79.4 Long term (current) use of insulin; Z98.84 Bariatric surgery status; N32.81 Overactive bladder; R32 Unspecified urinary incontinence; Z74.09 Other reduced mobility; Z91.14 Patient's other noncompliance with medication regimen; Z87.891 Personal history of nicotine dependence; R26.81 Unsteadiness on feet; E83.42 Hypomagnesemia; Z91.81 History of falling; Z86.73 Personal history of transient ischemic attack (TIA), and cerebral infarction without residual deficits; Z79.891 Long term (current) use of opiate analgesic; E86.0 Dehydration; E03.9 Hypothyroidism, unspecified; K43.9 Ventral hernia without obstruction or gangrene; I49.9 Cardiac arrhythmia, unspecified; Z95.0 Presence of cardiac pacemaker; Z79.899 Other long term (current) drug therapy
CPT/HCPCS: 36415; 70030-TC; 70450; 71045; 80307; 83735; 84100; 84443; 85025; 85730; 87086; 93005; 97110; 97116; 97530; A4663; G0378; G0480; G0480-TC; J1815; J2405; J3475; J3490; J7050